=== PATIENT | male | born 1960 | race Caucasian/White ===

== ENCOUNTER 2020-06-01 08:02 | Outpatient (REF) | payer MEDICARE, MEDICAID, SELFPAY ==
[2020-06-01 11:26] LABS: MANUAL DIFF FLAG NO
[2020-06-01 11:48] LABS: Basophils Percent Auto 0.5 % (0-2); Eosinophils Absolute Auto 0.4 X10*3/uL (0.0-0.4); Eosinophils Percent Auto 5.1 % (0-4); Hematocrit 42.2 % (42-52); Hemoglobin 13.5 g/dl (14.0-18.0); Imm Gran Abs Auto 0.05 X10*3/uL (0.00-0.03); Imm Gran Pct Auto 0.6 % (0.0-0.4); Lymphocytes Absolute Auto 1.9 X10*3/uL (1.2-4.9); Lymphocytes Percent Auto 23.2 % (20-40); Mean Corpuscular Hemoglobin 28.2 pg (27.0-33.0); Mean Corpuscular Volume 88.3 fL (80-98); Mean Platelet Volume 10.1 fL (9.4-12.4); Monocytes Absolute Auto 0.7 X10*3/uL (0.1-1.2); Monocytes Percent Auto 8.5 % (2-11); Neutrophils Absolute Auto 5.1 X10*3/uL (2.0-8.3); Neutrophils Percent Auto 62.1 % (45-73); Platelet Count 245 X10*3/uL (160-400); Red Blood Count 4.78 X10*6/uL (4.60-5.80); Red Cell Distribution Width 13.4 % (11.0-16.0); White Blood Count 8.3 X10*3/uL (4.8-10.8)
[2020-06-01 11:51] LABS: Iron 69 mcg/dL (45-160); Percent Iron Saturation 20 % (15-50); Total Iron Binding Capacity 338 mcg/dL (228-428); Unsaturated Iron Binding 269 ug/dL
== END 2020-06-01 08:03 | disposition home or self-care (01) ==
LOC: HO.HMGCLDS 08:02
PROVIDERS: PCP Internal Medicine; Visit Provider Internal Medicine
DX: R53.83 Other fatigue (principal)
CPT/HCPCS: 36415; 83540; 85025

== ENCOUNTER 2020-07-31 07:04 | Outpatient (REF) | payer MEDICARE, MEDICAID, SELFPAY ==
[2020-07-31 14:08] LABS: Estimated Average Glucose 197 mg/dL; Hemoglobin A1c % 8.5 %
[2020-07-31 14:29] LABS: Glucose Fasting 138 mg/dL (60-99)
== END 2020-07-31 07:05 | disposition home or self-care (01) ==
LOC: HO.HMGCLDS 07:04
PROVIDERS: PCP Internal Medicine; Visit Provider Internal Medicine
DX: E11.40 Type 2 diabetes mellitus with diabetic neuropathy, unspecified (principal)
CPT/HCPCS: 82947; 83036

== ENCOUNTER 2020-11-01 10:34 | Outpatient (REF) | payer MEDICARE, MEDICAID, SELFPAY ==
[2020-11-01 11:32] LABS: Alanine Aminotransferase 25 U/L (0-40); Albumin Level 4.2 g/dL (3.5-5.0); Alkaline Phosphatase 63 U/L (39-117); Aspartate Amino Transferase 32 U/L (5-37); Bilirubin Direct 0.2 mg/dL (0.0-0.5); Bilirubin Total 0.3 mg/dL (0.0-1.0); Cholesterol 107 mg/dL; Glucose Fasting 148 mg/dL (60-99); HDL Cholesterol 35 mg/dL; LDL Cholesterol Calculated 44 mg/dl; Total Protein 6.4 g/dL (6.5-8.0); Triglycerides 142 mg/dL
[2020-11-01 11:36] LABS: Estimated Average Glucose 194 mg/dL; Hemoglobin A1c % 8.4 %
[2020-11-01 11:53] LABS: TSH reflex Free T4 1.33 uIU/mL (0.32-4.0)
[2020-11-01 12:35] LABS: Reflex LDLD? No
== END 2020-11-01 10:35 | disposition home or self-care (01) ==
LOC: HO.LNP 10:34
PROVIDERS: Visit Provider Internal Medicine
DX: E11.40 Type 2 diabetes mellitus with diabetic neuropathy, unspecified (principal); E03.9 Hypothyroidism, unspecified; E78.00 Pure hypercholesterolemia, unspecified
CPT/HCPCS: 80061; 80076; 82947; 83036; 84443

== ENCOUNTER 2021-03-12 10:47 | Outpatient (REF) | payer MEDICARE, MEDICAID, SELFPAY ==
[2021-03-12 10:52] LABS: MANUAL DIFF FLAG NO
[2021-03-12 11:12] LABS: Basophils Percent Auto 0.3 % (0-2); Eosinophils Absolute Auto 0.8 X10*3/uL (0.0-0.4); Eosinophils Percent Auto 9.5 % (0-4); Hematocrit 41.6 % (42-52); Hemoglobin 13.1 g/dl (14.0-18.0); Imm Gran Abs Auto 0.06 X10*3/uL (0.00-0.03); Imm Gran Pct Auto 0.7 % (0.0-0.4); Lymphocytes Absolute Auto 1.6 X10*3/uL (1.2-4.9); Lymphocytes Percent Auto 18.5 % (20-40); Mean Corpuscular HGB Conc 31.5 g/dl (31.0-36.0); Mean Corpuscular Hemoglobin 28.4 pg (27.0-33.0); Mean Corpuscular Volume 90.2 fL (80-98); Mean Platelet Volume 10.9 fL (9.4-12.4); Monocytes Absolute Auto 0.6 X10*3/uL (0.1-1.2); Monocytes Percent Auto 7.2 % (2-11); Neutrophils Absolute Auto 5.7 X10*3/uL (2.0-8.3); Neutrophils Percent Auto 63.8 % (45-73); Platelet Count 260 X10*3/uL (160-400); Red Blood Count 4.61 X10*6/uL (4.60-5.80); Red Cell Distribution Width 13.1 % (11.0-16.0); White Blood Count 8.9 X10*3/uL (4.8-10.8)
[2021-03-12 11:17] LABS: Estimated Average Glucose 235 mg/dL; Hemoglobin A1c % 9.8 %
[2021-03-12 11:23] LABS: Glucose Urine UA 100 MG/DL (NEG); Leukocyte Esterase Urine NEG (NEG); Nitrite Urine NEG (NEG); PH 6.5 (5.0-8.0); Urine Blood NEG (NEG); Urine Ketones NEG (NEG); Urine Protein 1+ MG/DL (NEG-TRACE)
[2021-03-12 11:26] LABS: Appearance Urine CLEAR; Color Urine YELLOW
[2021-03-12 11:33] LABS: Alanine Aminotransferase 36 U/L (0-40); Albumin Level 3.9 g/dL (3.5-5.0); Alkaline Phosphatase 68 U/L (39-117); Anion Gap 13 (12-20); Aspartate Amino Transferase 45 U/L (5-37); Bilirubin Total 0.5 mg/dL (0.0-1.0); Blood Urea Nitrogen 14 mg/dL (9-16); Carbon Dioxide 25 mmol/L (22-29); Chloride 104 mmol/L (96-108); Cholesterol 96 mg/dL; Estimated Glomerular Filt Rate > 60; Glucose Fasting 230 mg/dL (60-99); HDL Cholesterol 28 mg/dL; Iron 58 mcg/dL (45-160); LDL Cholesterol Calculated 38 mg/dl; Percent Iron Saturation 16 % (15-50); Potassium 4.6 mmol/L (3.3-5.1); Sodium 137 mmol/L (135-145); Total Iron Binding Capacity 366 mcg/dL (228-428); Total Protein 6.4 g/dL (6.5-8.0); Triglycerides 154 mg/dL; Unsaturated Iron Binding 308 ug/dL
[2021-03-12 11:42] LABS: PSA,Total (Free>4and<10) 0.21 ng/mL (0.00-4.00)
[2021-03-12 11:49] LABS: Creatinine Urine 210.06 mg/dL; Microalbum/Creatinine Ratio Ur 30.4 ug/mg cr
[2021-03-12 11:52] LABS: Mucus Urine TRACE /LPF; RBC Urine 0-2 /HPF (0); WBC Urine 0-2 /HPF (0-4)
[2021-03-12 11:56] LABS: Reflex LDLD? No
== END 2021-03-12 10:48 | disposition home or self-care (01) ==
LOC: HO.LNP 10:47
PROVIDERS: Visit Provider Internal Medicine
DX: E11.40 Type 2 diabetes mellitus with diabetic neuropathy, unspecified (principal); E03.9 Hypothyroidism, unspecified; E78.00 Pure hypercholesterolemia, unspecified; I10 Essential (primary) hypertension; D50.9 Iron deficiency anemia, unspecified; R79.9 Abnormal finding of blood chemistry, unspecified
CPT/HCPCS: 80053; 80061; 81001; 81003; 82043; 83036; 83540; 84153; 84443; 85025

== ENCOUNTER 2021-05-07 09:24 | Outpatient (REF) | payer MEDICARE, MEDICAID, SELFPAY ==
--- NOTE | ~2021-05-07 | XR_ITS ---
EXAMINATION: XR CHEST CLINICAL INFORMATION: Viral infection COMPARISON: Previous chest CT January 2007 TECHNIQUE: 2 views of the chest were obtained. FINDINGS: The cardiac and mediastinal contours are stable. The lungs are clear. There is no pleural effusion or pneumothorax. There are degenerative changes of the spine. 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 There are postsurgical changes to the lower cervical spine. XR/XR chest 2V IMPRESSION: No evidence for acute disease in the chest.
== END 2021-05-07 09:25 | disposition home or self-care (01) ==
LOC: HO.HMGCX 09:24
PROVIDERS: PCP Internal Medicine; Visit Provider Physician Assistant
DX: Z20.822 Contact with and (suspected) exposure to COVID-19 (principal); B34.9 Viral infection, unspecified
CPT/HCPCS: 71046; U0003; U0005

== ENCOUNTER 2021-05-28 09:22 | Outpatient (REF) | payer MEDICARE, MEDICAID, SELFPAY ==
[2021-05-28 09:48] LABS: MANUAL DIFF FLAG NO
[2021-05-28 10:28] LABS: Basophils Absolute Auto 0.1 X10*3/uL (0.0-0.2); Basophils Percent Auto 0.5 % (0-2); Eosinophils Absolute Auto 1.2 X10*3/uL (0.0-0.4); Eosinophils Percent Auto 11.6 % (0-4); Hematocrit 44.7 % (42-52); Hemoglobin 14.5 g/dl (14.0-18.0); Imm Gran Abs Auto 0.06 X10*3/uL (0.00-0.03); Imm Gran Pct Auto 0.6 % (0.0-0.4); Lymphocytes Percent Auto 19.5 % (20-40); Mean Corpuscular HGB Conc 32.4 g/dl (31.0-36.0); Mean Corpuscular Volume 89.4 fL (80-98); Mean Platelet Volume 9.9 fL (9.4-12.4); Monocytes Absolute Auto 0.7 X10*3/uL (0.1-1.2); Monocytes Percent Auto 6.2 % (2-11); Neutrophils Absolute Auto 6.4 X10*3/uL (2.0-8.3); Neutrophils Percent Auto 61.6 % (45-73); Platelet Count 270 X10*3/uL (160-400); Red Cell Distribution Width 13.2 % (11.0-16.0); White Blood Count 10.4 X10*3/uL (4.8-10.8)
[2021-05-28 11:27] LABS: Vitamin B12 220 pg/mL (200-900)
== END 2021-05-28 09:23 | disposition home or self-care (01) ==
LOC: HO.LAB 09:22
PROVIDERS: PCP Internal Medicine; Visit Provider Internal Medicine
DX: E53.8 Deficiency of other specified B group vitamins (principal)
CPT/HCPCS: 36415; 82607; 85025

== ENCOUNTER 2021-12-25 09:29 | Outpatient (REF) | payer MEDICARE, MEDICAID, SELFPAY ==
[2021-12-25 10:05] LABS: COVID-19 Test Negative (Negative)
== END 2021-12-25 09:30 | disposition home or self-care (01) ==
LOC: HO.LAB 09:29
PROVIDERS: Visit Provider Internal Medicine
DX: Z20.822 Contact with and (suspected) exposure to COVID-19 (principal)
CPT/HCPCS: 87635; C9803

== ENCOUNTER 2022-03-14 10:58 | Outpatient (REF) | payer MEDICARE, MEDICAID, SELFPAY ==
[2022-03-14 11:04] LABS: MANUAL DIFF FLAG NO
[2022-03-14 11:15] LABS: Basophils Percent Auto 0.4 % (0-2); Eosinophils Percent Auto 10.7 % (0-4); Hematocrit 41.5 % (42.0-52.0); Hemoglobin 12.9 g/dl (14.0-18.0); Imm Gran Abs Auto 0.05 X10*3/uL (0.00-0.03); Imm Gran Pct Auto 0.5 % (0.0-0.4); Lymphocytes Absolute Auto 1.8 X10*3/uL (1.2-4.9); Lymphocytes Percent Auto 19.8 % (20-40); Mean Corpuscular HGB Conc 31.1 g/dl (31.0-36.0); Mean Corpuscular Hemoglobin 28.4 pg (27.0-33.0); Mean Corpuscular Volume 91.2 fL (80.0-98.0); Monocytes Absolute Auto 0.7 X10*3/uL (0.1-1.2); Monocytes Percent Auto 7.8 % (2-11); Neutrophils Absolute Auto 5.5 x10*3/uL (2.0-8.3); Neutrophils Percent Auto 60.8 % (45-73); Platelet Count 273 X10*3/uL (160-400); Red Blood Count 4.55 X10*6/uL (4.60-5.80); Red Cell Distribution Width 14.3 % (11.0-16.0); White Blood Count 9.1 X10*3/uL (4.8-10.8)
[2022-03-14 11:24] LABS: Appearance Urine CLEAR; Color Urine YELLOW; Glucose Urine UA >=1000 MG/DL (NEG); Leukocyte Esterase Urine NEG (NEG); Nitrite Urine NEG (NEG); Specific Gravity - Urine 1.015 (1.005-1.025); Urine Blood NEG (NEG); Urine Ketones NEG (NEG); Urine Protein NEG (NEG-TRACE)
[2022-03-14 11:27] LABS: Estimated Average Glucose 266 mg/dL; Hemoglobin A1c % 10.9 %
[2022-03-14 11:48] LABS: Creatinine Urine 75.93 mg/dL; Microalbum/Creatinine Ratio Ur 30.2 ug/mg cr
[2022-03-14 12:01] LABS: Alanine Aminotransferase 39 U/L (0-40); Albumin Level 4.2 g/dL (3.5-5.0); Alkaline Phosphatase 72 U/L (39-117); Anion Gap 17 (12-20); Aspartate Amino Transferase 43 U/L (5-37); Bilirubin Total 0.3 mg/dL (0.0-1.0); Blood Urea Nitrogen 19 mg/dL (9-16); Calcium 9.6 mg/dL (8.4-10.2); Carbon Dioxide 23 mmol/L (22-29); Chloride 104 mmol/L (96-108); Cholesterol 145 mg/dL; Estimated Glomerular Filt Rate > 60; Glucose Fasting 188 mg/dL (60-99); HDL Cholesterol 39 mg/dL; Iron 55 mcg/dL (45-160); LDL Cholesterol Calculated 71 mg/dl; Percent Iron Saturation 15 % (15-50); Potassium 4.7 mmol/L (3.3-5.1); Sodium 139 mmol/L (135-145); Total Iron Binding Capacity 376 mcg/dL (228-428); Triglycerides 178 mg/dL; Unsaturated Iron Binding 321 ug/dL
[2022-03-14 12:16] LABS: PSA,Total (Free>4and<10) 0.24 ng/mL (0.00-4.00)
[2022-03-14 12:42] LABS: RBC Urine 0 /HPF (0)
[2022-03-21 12:27] LABS: Testosterone, Total 173 ng/dL (250-1100)
== END 2022-03-14 10:59 | disposition home or self-care (01) ==
LOC: HO.LNP 10:58
PROVIDERS: Visit Provider Internal Medicine
DX: Z12.5 Encounter for screening for malignant neoplasm of prostate (principal); D50.9 Iron deficiency anemia, unspecified; I10 Essential (primary) hypertension; E03.9 Hypothyroidism, unspecified; E11.40 Type 2 diabetes mellitus with diabetic neuropathy, unspecified; E29.1 Testicular hypofunction
CPT/HCPCS: 80053; 80061; 81001; 82043; 83036; 83540; 84153; 84403; 84443; 85025

== ENCOUNTER 2022-04-01 11:36 | Emergency (ER) | payer MEDICARE, MEDICAID, SELFPAY ==
--- NOTE | ~2022-04-01 | CT_ITS ---
EXAMINATION: CT ANGIOGRAM OF THE CHEST WITH AND WITHOUT CONTRAST (CT PULMONARY ANGIOGRAM FOR PE) CLINICAL INFORMATION: Reason for Exam + dimer COMPARISON: Chest CT 01/28/2007 TECHNIQUE: Prior to contrast administration, noncontrast localization images were obtained. Subsequently, multidetector volumetric imaging was performed from the thoracic inlet to below the diaphragms following the administration of 65 mL Omnipaque 350 intravenous contrast. No contrast reaction reported Sagittal, coronal, and MIP oblique sagittal reformatted images were obtained on the CT workstation, uploaded to PACS, and reviewed. This CT examination was performed using dose optimization techniques as appropriate, variously including the following: *Automated exposure control *Adjustment of mA and/or kV according to patient size (this includes techniques or standardized protocols for targeted exams where dose is matched to indication/reason for exam; i.e. extremities or head) *Use of iterative reconstruction technique Total exam dose-length product 466 mGy-cm FINDINGS: QUALITY OF STUDY/CONTRAST BOLUS: Satisfactory. PULMONARY ARTERIES: No central or segmental pulmonary emboli. THORACIC AORTA: No aneurysm or dissection. LUNG: Small 5.5 mm mean diameter ovoid shaped pulmonary nodule in the right upper lobe along the bronchovascular bundle on series 603 image 193. Finding was not appreciated on remote prior CT at 2006, not only 5 mm thick axial images are available for review limiting assessment of small nodules. Few tiny sub-4 mm pulmonary nodules in the upper lobes and small calcified granuloma along the right major fissure. No airspace consolidation. Mild mosaic attenuation bilaterally suggesting mild air trapping. Mild right apical centrilobular emphysema. Central airways are clear. No bronchiectasis. PLEURA: No pleural effusion or pneumothorax. MEDIASTINUM: No cardiomegaly or pericardial effusion. No mediastinal or hilar lymphadenopathy. No evidence of septal bowing or right heart strain. CHEST WALL/AXILLA: No axillary or internal mammary lymphadenopathy. Left thyroid lobe is absent or markedly atrophic. OSSEOUS STRUCTURES: No acute or suspicious osseous abnormality. Mild multilevel degenerative disc disease in the thoracic spine with bulky right-sided projecting endplate osteophytes. ACDF hardware in the lower cervical spine. UPPER ABDOMEN: Unremarkable. No reflux of contrast into the hepatic veins to suggest elevated right heart pressures. CT/CT angio chest PE protocol IMPRESSION: 1. No evidence of pulmonary embolus. 2. Mild mosaic attenuation scattered in the lungs suggesting mild air trapping. 3. 5.5 mm mean diameter right upper lobe pulmonary nodule. If the patient is low risk for primary pulmonary malignancy, no follow-up is required. If high risk, suggest optional chest CT follow-up in 12 months time for reassessment Fleischner Society guidelines 2017. VTE: negative
--- NOTE | ~2022-04-01 | XR_ITS ---
EXAMINATION: XR TIBIA AND FIBULA, LEFT CLINICAL INFORMATION: Left leg swelling. Suspected osteomyelitis. The COMPARISON: None TECHNIQUE: AP and lateral views of the left tibia and fibula were obtained. FINDINGS: Significant soft tissue swelling is present involving the left leg including the left ankle and the visualized part of the dorsum of the left foot. No definite underlying focal osseous abnormality identified. The articular margins, joint space appear unremarkable. Incidental note is made of a well-corticated bony protuberance at upper medial part of the left tibia likely represent chronic/congenital/old posttraumatic change. XR/XR tibia fibula LT 2V IMPRESSION: 1. Significant Soft Tissue Swelling Involving the left leg, ankle and visualized part of the left foot. 2. No underlying radiographic evidence of any osseous abnormality identified. 3. Focal well-corticated bony density seen at upper medial tibia likely represent congenital versus old posttraumatic change.
--- NOTE | ~2022-04-01 | US_ITS ---
EXAMINATION: US VENOUS ULTRASOUND WITH DOPPLER LOWER EXTREMITY, LEFT CLINICAL INFORMATION: Left lower extremity edema and swelling with question of DVT COMPARISON: None TECHNIQUE: Ultrasound of the deep veins is performed from the hip to the calf with compression sonography and color and pulse Doppler assessment. Spectral analysis with color-flow imaging is performed. FINDINGS: There is normal venous compression and respiratory variation and augmented flow. The visualized common femoral vein, superficial femoral vein, profunda femoral vein, popliteal vein, and the trifurcation region shows no evidence of deep venous thrombosis. There is no significant popliteal fossa cyst. If the patient's symptoms persist, followup ultrasound in 5 days 7 days might be of value to exclude proximal propagation from a non-visualized calf vein. US/US venous duplex LE LT IMPRESSION: No DVT demonstrated in the left lower extremity.
[2022-04-01 12:41] VITALS: BP 169/97; PULSE 109; RESP 19; TEMP 37.6; O2SAT 98; BMI 35.6
[2022-04-01 14:07] LABS: MANUAL DIFF FLAG NO
[2022-04-01 14:10] LABS: Basophils Absolute Auto 0.1 X10*3/uL (0.0-0.2); Basophils Percent Auto 0.6 % (0-2); Eosinophils Absolute Auto 1.2 X10*3/uL (0.0-0.4); Hematocrit 41.5 % (42.0-52.0); Hemoglobin 13.3 g/dl (14.0-18.0); Imm Gran Abs Auto 0.03 X10*3/uL (0.00-0.03); Imm Gran Pct Auto 0.3 % (0.0-0.4); Lymphocytes Absolute Auto 1.9 X10*3/uL (1.2-4.9); Lymphocytes Percent Auto 21.5 % (20-40); Mean Corpuscular Hemoglobin 28.6 pg (27.0-33.0); Mean Corpuscular Volume 89.2 fL (80.0-98.0); Mean Platelet Volume 9.5 fL (9.4-12.4); Monocytes Absolute Auto 0.7 X10*3/uL (0.1-1.2); Neutrophils Percent Auto 56.6 % (45-73); Platelet Count 262 X10*3/uL (160-400); Red Blood Count 4.65 X10*6/uL (4.60-5.80); Red Cell Distribution Width 14.4 % (11.0-16.0); White Blood Count 8.8 X10*3/uL (4.8-10.8)
[2022-04-01 14:25] LABS: Anion Gap 18 (12-20); Blood Urea Nitrogen 12 mg/dL (9-16); C Reactive Protein 0.81 mg/dL (< or = 0.50); Calcium 9.7 mg/dL (8.4-10.2); Carbon Dioxide 23 mmol/L (22-29); Chloride 104 mmol/L (96-108); Creatinine Clr Calc Pharmacy 96.4; Estimated Glomerular Filt Rate > 60; Glucose Random 210 mg/dL (60-115); Potassium 4.9 mmol/L (3.3-5.1); Sodium 140 mmol/L (135-145)
[2022-04-01 14:33] LABS: B Type Natriuretic Peptide < 10 pg/mL (<100)
[2022-04-01 15:05] LABS: Erythrocyte Sedimentation Rate 21 MM/HR (0-15)
--- NOTE | 2022-04-01 16:06 | ED.GENADULT ---
HPI - General Adult General Chief complaint: Extremity Injury, Lower Stated complaint: Swollen L leg Time Seen by Provider: 04/01/22 12:48 Source: patient Mode of arrival: ambulatory Limitations: no limitations History of Present Illness HPI narrative: 61-year-old male presenting to the emergency department with a painful left lower extremity times times month worsening over the past week. Patient tells me that he has noted that his left lower extremity is progressively getting worse in terms of swelling, pain and redness. Patient tells me that this is never happened to him before. He has not been evaluated by his PCP for this. He denies any injuries to the left lower extremity. Denies numbness, tingling, fevers, chills, chest pain, shortness of breath, nausea, vomiting, headache and dizziness. He has no history of DVT or PE, patient is not anticoagulated. Related Data Home Medications Medication Instructions Recorded Confirmed celecoxib 200 mg capsule 200 mg PO DAILY 02/11/22 cromolyn 4 % eye drops 1 drp ophthalmic (eye) QID 02/11/22 dapagliflozin 10 mg tablet 10 mg PO DAILY 02/11/22 (Farxiga) gabapentin 600 mg tablet mg PO 02/11/22 latanoprost 0.005 % eye drops 1 drp ophthalmic-Right BEDTIME 02/11/22 levothyroxine 100 mcg tablet 100 mcg PO DAILY 02/11/22 lisinopril 40 mg tablet 40 mg PO DAILY 02/11/22 metformin 1,000 mg tablet 1,000 mg PO BID 02/11/22 rosuvastatin 20 mg tablet 20 mg PO BEDTIME 02/11/22 tramadol 50 mg tablet 50 mg PO TID PRN 02/11/22 Previous Rx's Medication Instructions Recorded hydrocortisone 2.5 % topical cream 1 appl topical BID PRN skin 02/11/22 irritation #30 grams prednisone 20 mg tablet 60 mg PO DAILY #9 tabs 02/11/22 cephalexin 500 mg tablet 500 mg PO Q6H 10 days #40 tabs 04/01/22 doxycycline hyclate 100 mg capsule 100 mg PO BID 10 days #20 caps 04/01/22 Allergies Allergy/AdvReac Type Severity Reaction Status Date / Time No Known Allergies Allergy Unverified 02/11/22 10:44 [No Known Allergies*] hay fever Allergy Unknown sneezing Uncoded 02/11/22 10:44 watery eyes Review of Systems Review of Systems: Constitutional : No Weight loss, No Fever, No Chills, No Fatigue, No Malaise ENT/Mouth : No sore throat, No Rhinorrhea Eyes: No Eye Pain, No Swelling, No Redness Cardiovascular : No Chest Pain, No SOB, No Dyspnea on Exertion, No Orthopnea, No Edema, No Palpitations Respiratory : No Cough, No Sputum, No Wheezing Gastrointestinal : No Nausea, No Vomiting, No Diarrhea, No Constipation, No abdominal Pain, No Hematochezia, No Melena Genitourinary : No Dysuria, No Urinary Frequency, No Hematuria, Musculoskeletal : + joint pain, No Myalgias, + Joint Swelling Skin : No Skin Lesions, No rash Neuro : No Weakness, No Numbness, No Dizziness, No Headache Psych : No Anxiety/Panic, No Depression All other systems reviewed and are negative Yes all other systems are reviewed and are negative [facility] Past Medical History Attestation statement: The following information was validated with the patient. Source: old records reviewed and nursing notes reviewed Social History Social History Advance Directives: No Advance Directives Information Provided: Yes Physical Exam ED Vital Signs: Vital Signs - 24 hr 04/01/22 12:41 04/01/22 18:54 Temperature 99.6 F 98.1 F Pulse Rate 109 H 94 Respiratory Rate 19 20 Blood Pressure 169/97 H 136/88 Pulse Oximetry 98 96 Oxygen Delivery Method Room Air Room Air BMI result Body Mass Index 35.6 VSS Appearance: Alert.? Oriented X3.? No acute distress.? Head: Normocephalic, atraumatic, no step-offs or deformities Eyes: Pupils equal, round and reactive to light.? ENT: Pharynx normal.? Neck: Normal inspection.? Neck supple.? CVS: Normal heart rate and rhythm.? Pulses normal.? Respiratory: No respiratory distress.? Breath sounds normal.? Abdomen: Soft and nontender.? Skin: Skin warm and dry.? Normal skin color.? Normal skin turgor.?+ eczema throughout body Extremities: 3+ pitting edema from knee down on left side. No edema on the right. No calf ttp b/l. 4/5 strength to bilateral upper and lower extremities. + erythema and calor to L. ankle area with pain to palpation. Back: No midline tenderness, no C-spine tenderness, full range of motion, no CVA tenderness bilaterally Neuro: Oriented X 3.? No motor deficit.? No sensory deficit. CN 2-12 intact Course Reevaluation(s) Reevaluation #1: Patient's CBC within normal limits. Chemistry with no acute electrolyte abnormalities requiring intervention. D-dimer was elevated, CTA was ordered which did not show PE. Other incidental findings noted, educated patient 90s and attach them on his discharge. Lower extremity venous duplex negative no signs of DVT in the left lower extremity, advised patient to follow-up with an additional ultrasound in 5-7 days if symptoms do not resolve. Will treat patient for cellulitis with Keflex and doxycycline. Advised him to return with new or worsening symptoms and to follow-up with his PCP. Time: 21:36 Medical Decision Making [facility] Narrative Medical decision making narrative: 1606 61 year old male presents with lle pain and swelling, particularly around the ankle X1 month worsening over the past week. Denies numbness, tingling, fevers, chills, chest pain, shortnes of breath. Physical exam significant for 3+ pitting edema from knee down on left side. No edema on the right. No calf ttp b/l. 4/5 strength to bilateral upper and lower extremities. + erythema and calor to L. ankle area with pain to palpation. Eczema throughout body. Immediately upon evaluation of patient a bedside Doppler with auscultation was done, which shows 2+ dorsalis pedis, 2+ posterior tibialis and 2+ anterior tibialis pulses equal bilateral. History and physical examination concerning for left lower extremity cellulitis, will also rule out musculoskeletal etiology such as fractures or dislocations with overlying edema/swelling. Unlikely that this is a DVT or arterial occlusion. No signs of threatened limb. Plan at this time is to obtain basic labs, x-ray, ultrasound of the left lower extremity. Patient is tachycardic will obtain dimer to rule out PE although patient not complaining of chest pain or shortness of breath. Medical Records Medical records reviewed: Yes I reviewed the patient's medical records. Lab Data Lab results reviewed: Yes I reviewed the patient's lab results. Result diagrams: 04/01/22 14:02 04/01/22 14:02 Labs: Lab Results 04/01/22 04/01/22 04/01/22 Range/Units 14:02 14:02 14:02 WBC 8.8 (4.8-10.8) X10*3/uL RBC 4.65 (4.60-5.80) X10*6/uL Hgb 13.3 L (14.0-18.0) g/dl Hct 41.5 L (42.0-52.0) % MCV 89.2 (80.0-98.0) fL MCH 28.6 (27.0-33.0) pg MCHC 32.0 (31.0-36.0) g/dl RDW 14.4 (11.0-16.0) % Plt Count 262 (160-400) X10*3/uL MPV 9.5 (9.4-12.4) fL Immature Gran % (Auto) 0.3 (0.0-0.4) % Neut % (Auto) 56.6 (45-73) % Lymph % (Auto) 21.5 (20-40) % [place] % (Auto) 8.0 (2-11) % Eos % (Auto) 13.0 H (0-4) % Baso % (Auto) 0.6 (0-2) % Lymph # (Auto) 1.9 (1.2-4.9) X10*3/uL [place] # (Auto) 0.7 (0.1-1.2) X10*3/uL Eos # (Auto) 1.2 H (0.0-0.4) X10*3/uL Baso # (Auto) 0.1 (0.0-0.2) X10*3/uL Abs Immat Gran (auto) 0.03 (0.00-0.03) X10*3/uL Absolute Neuts (auto) 5.0 (2.0-8.3) x10*3/uL Absolute Nucleated RBC 0.000 (0.0-0.012) X10*3/uL Nucleated RBC % (auto) 0.0 (0.0-0.2) /100WBC ESR (0-15) MM/HR D-Dimer High Sensitivty NG/ML Sodium 140 (135-145) mmol/L Potassium 4.9 (3.3-5.1) mmol/L Chloride 104 (96-108) mmol/L Carbon Dioxide 23 (22-29) mmol/L Anion Gap 18 (12-20) BUN 12 (9-16) mg/dL Creatinine 1.01 (0.5-1.4) mg/dL Estim Creat Clear Calc 96.4 Estimated GFR > 60 Random Glucose 210 H (60-115) mg/dL Calcium 9.7 (8.4-10.2) mg/dL C-Reactive Protein 0.81 H (< or = 0.50) mg/dL B-Natriuretic Peptide < 10 (<100) pg/mL 04/01/22 04/01/22 Range/Units 14:02 17:44 WBC (4.8-10.8) X10*3/uL RBC (4.60-5.80) X10*6/uL Hgb (14.0-18.0) g/dl Hct (42.0-52.0) % MCV (80.0-98.0) fL MCH (27.0-33.0) pg MCHC (31.0-36.0) g/dl RDW (11.0-16.0) % Plt Count (160-400) X10*3/uL MPV (9.4-12.4) fL Immature Gran % (Auto) (0.0-0.4) % Neut % (Auto) (45-73) % Lymph % (Auto) (20-40) % [place] % (Auto) (2-11) % Eos % (Auto) (0-4) % Baso % (Auto) (0-2) % Lymph # (Auto) (1.2-4.9) X10*3/uL [place] # (Auto) (0.1-1.2) X10*3/uL Eos # (Auto) (0.0-0.4) X10*3/uL Baso # (Auto) (0.0-0.2) X10*3/uL Abs Immat Gran (auto) (0.00-0.03) X10*3/uL Absolute Neuts (auto) (2.0-8.3) x10*3/uL Absolute Nucleated RBC (0.0-0.012) X10*3/uL Nucleated RBC % (auto) (0.0-0.2) /100WBC ESR 21 H (0-15) MM/HR D-Dimer High Sensitivty 525 NG/ML Sodium (135-145) mmol/L Potassium (3.3-5.1) mmol/L Chloride (96-108) mmol/L Carbon Dioxide (22-29) mmol/L Anion Gap (12-20) BUN (9-16) mg/dL Creatinine (0.5-1.4) mg/dL Estim Creat Clear Calc Estimated GFR Random Glucose (60-115) mg/dL Calcium (8.4-10.2) mg/dL C-Reactive Protein (< or = 0.50) mg/dL B-Natriuretic Peptide (<100) pg/mL Critical Care Time Critical Care Time Critical Care Time: No Discharge Plan Discharge Clinical Impression: Soft tissue swelling, Cellulitis, Pulmonary nodule Patient Disposition: Home, Self-Care Instructions: Cellulitis (ED), Swollen Joint (ED) Additional Instructions: Take your medications as prescribed. If you were prescribed antibiotics today, it is important that you take your medication to their entirety, do not skip any doses, do not finish them early. Follow-up with your primary care provider this week. Return to the emergency department with new or worsening symptoms. Such as fevers, chills, chest pain, shortness of breath, nausea, vomiting, dizziness, headache, vision changes, lethargy In case of emergency call 911 ?XR/XR tibia fibula LT 2V IMPRESSION: ? 1. Significant Soft Tissue Swelling Involving the left leg, ankle and visualized part of the left foot. 2. No underlying radiographic evidence of any osseous abnormality identified. 3. Focal well-corticated bony density seen at upper medial tibia likely represent congenital versus old posttraumatic change. US/US venous duplex LE LT IMPRESSION: No DVT demonstrated in the left lower extremity. If the patient's symptoms persist, followup ultrasound in 5 days 7 days might be of value to exclude proximal propagation from a non-visualized calf vein. CT/CT angio chest PE protocol IMPRESSION: ? 1. No evidence of pulmonary embolus. 2. Mild mosaic attenuation scattered in the lungs suggesting mild air trapping. 3. 5.5 mm mean diameter right upper lobe pulmonary nodule. If the patient is low risk for primary pulmonary malignancy, no follow-up is required. If high risk, suggest optional chest CT follow-up in 12 months time for reassessment Fleischner Society guidelines 2017. ? ? VTE: negative Prescriptions: New cephalexin 500 mg tablet 500 mg PO Q6H 10 Days Qty: 40 0RF doxycycline hyclate 100 mg capsule 100 mg PO BID 10 Days Qty: 20 0RF No Action levothyroxine 100 mcg tablet 100 mcg PO DAILY metformin 1,000 mg tablet 1,000 mg PO BID gabapentin 600 mg tablet PO tramadol 50 mg tablet 50 mg PO TID PRN cromolyn 4 % drops 1 drp ophthalmic (eye) QID celecoxib 200 mg capsule 200 mg PO DAILY latanoprost 0.005 % drops 1 drp ophthalmic-Right BEDTIME rosuvastatin 20 mg tablet 20 mg PO BEDTIME lisinopril 40 mg tablet 40 mg PO DAILY Farxiga 10 mg tablet 10 mg PO DAILY prednisone 20 mg tablet 60 mg PO DAILY Qty: 9 0RF hydrocortisone 2.5 % cream 1 appl topical BID PRN (Reason: skin irritation) Qty: 30 1RF Referrals: Abundio Lizarraga MD [Primary Care Provider] - 2 days Stand Alone Forms: Work/School Release
[2022-04-01 18:00] LABS: D Dimer High Sensitivity 525 NG/ML
[2022-04-01 18:54] VITALS: BP 136/88; PULSE 94; RESP 20; TEMP 36.7; O2SAT 96
--- NOTE | 2022-04-01 20:09 | PC.NURSE ---
IV inserted in left AC. Pt is ready for CTA.
[2022-04-01] MEDS: iohexoL 350 MG/ML 100 ML INFUS..BTL IV (20:37)
== END 2022-04-01 21:55 | disposition home or self-care (01) ==
PROVIDERS: Physician Assistant; Emergency Provider Emergency Medicine; PCP Internal Medicine
DX: L03.116 Cellulitis of left lower limb (principal); M79.662 Pain in left lower leg; R60.0 Localized edema; R91.1 Solitary pulmonary nodule; Z79.899 Other long term (current) drug therapy
CPT/HCPCS: 36415; 71275; 73590; 80048; 83880; 85025; 85379; 85652; 86140; 93971; 99283; 99284; Q9967

== ENCOUNTER 2022-05-01 09:28 | Outpatient (REF) | payer MEDICARE, MEDICAID, SELFPAY ==
[2022-05-01 10:27] LABS: Basophils Absolute Auto 0.1 X10*3/uL (0.0-0.2); Basophils Percent Auto 0.4 % (0-2); Eosinophils Absolute Auto 2.2 X10*3/uL (0.0-0.4); Eosinophils Percent Auto 19.6 % (0-4); Hematocrit 40.8 % (42.0-52.0); Hemoglobin 13.3 g/dl (14.0-18.0); Imm Gran Abs Auto 0.07 X10*3/uL (0.00-0.03); Imm Gran Pct Auto 0.6 % (0.0-0.4); Lymphocytes Absolute Auto 1.7 X10*3/uL (1.2-4.9); Lymphocytes Percent Auto 14.8 % (20-40); MANUAL DIFF FLAG SCAN; Mean Corpuscular HGB Conc 32.6 g/dl (31.0-36.0); Mean Corpuscular Hemoglobin 28.9 pg (27.0-33.0); Mean Corpuscular Volume 88.5 fL (80.0-98.0); Mean Platelet Volume 9.8 fL (9.4-12.4); Monocytes Absolute Auto 0.7 X10*3/uL (0.1-1.2); Monocytes Percent Auto 6.2 % (2-11); Neutrophils Absolute Auto 6.7 x10*3/uL (2.0-8.3); Neutrophils Percent Auto 58.4 % (45-73); Platelet Count 295 X10*3/uL (160-400); Red Blood Count 4.61 X10*6/uL (4.60-5.80); Red Cell Distribution Width 13.7 % (11.0-16.0); SCAN SMEAR FLAG 1; White Blood Count 11.4 X10*3/uL (4.8-10.8)
[2022-05-01 10:53] LABS: SLIDE REVIEW VERIFIED
== END 2022-05-01 09:29 | disposition home or self-care (01) ==
LOC: HO.LAB 09:28
PROVIDERS: PCP Internal Medicine; Visit Provider Physician Assistant
DX: L20.84 Intrinsic (allergic) eczema (principal)
CPT/HCPCS: 36415; 85025

== ENCOUNTER 2022-06-07 06:59 | Inpatient (IN) | payer MEDICARE, MEDICAID, SELFPAY ==
--- NOTE | ~2022-06-07 | XR_ITS ---
EXAMINATION: XR CHEST CLINICAL INFORMATION: Lower extremity edema COMPARISON: Prior chest x-ray April 2021 CTA chest March 2022 TECHNIQUE: Frontal view of the chest was obtained. FINDINGS: No acute significant abnormality is noted involving the heart, lungs, mediastinum, bony thorax or soft tissues. Stable postoperative changes in the right shoulder in the partially visualized cervical spine XR/XR chest 1V IMPRESSION: Unremarkable examination.
--- NOTE | ~2022-06-07 | US_ITS ---
EXAMINATION: BILATERAL LOWER EXTREMITY VENOUS ULTRASOUND CLINICAL INFORMATION: Lower extremity pain and swelling, greater in the left lower extremity than the right. COMPARISON: Left lower extremity venous Doppler ultrasound dated 04/01/2022. TECHNIQUE: Doppler spectral analysis and color flow Doppler imaging was performed of the lower extremities. Compression and augmentation maneuvers were performed. FINDINGS: The right and left common femoral vein, greater saphenous vein takeoff, femoral vein, and popliteal vein are normally compressible with normal augmentation responses and phasic changes seen with Doppler imaging. The [place]calf peroneal and posterior tibial veins are patent as well. No popliteal cyst is seen. A prominent left inguinal lymph node is seen, measuring up to 4 cm in transverse diameter. However, this lymph node shows a normal cortical thickness and normal echogenic fatty vascular hilum with no suspicious features seen and is consistent with a benign finding, which warrants no additional imaging follow-up. US/US venous duplex LE BI IMPRESSION: No evidence of deep venous thrombosis in the right or left lower extremity.
[2022-06-07 07:18] VITALS: BP 89/55; PULSE 123; RESP 17; TEMP 35.8; O2SAT 95; BMI 35.2
[2022-06-07 08:03] VITALS: BP 93/64; PULSE 102; RESP 20; TEMP 36.9; O2SAT 99
--- NOTE | 2022-06-07 08:17 | ED.EXTPRO ---
HPI - Extremity Problem General Chief complaint: Extremity Problem Stated complaint: l leg pain Time Seen by Provider: 06/07/22 08:02 Source: patient Mode of arrival: ambulatory History of Present Illness HPI Narrative: 62-year-old male with a past medical history of eczema, presenting to the ED complaining of left lower extremity pain and swelling x1 week. Admits to similar in the past, was treated in our ED on 04/01/2022 cellulitis. Reports chronic eczema diffusely over body, unchanged. Denies fever, chills, drainage from area, SOB, CP, recent travel, history of DVT, quit cigarette smoking over 20 years ago. Denies being on anticoagulation MD Complaint: extremity pain and extremity swelling Onset (ago): week(s) Pain Consistency: constant Related Data Home Medications Medication Instructions Recorded Confirmed celecoxib 200 mg capsule 200 mg PO DAILY 02/11/22 cromolyn 4 % eye drops 1 drp ophthalmic (eye) QID 02/11/22 dapagliflozin 10 mg tablet 10 mg PO DAILY 02/11/22 (Farxiga) gabapentin 600 mg tablet mg PO 02/11/22 latanoprost 0.005 % eye drops 1 drp ophthalmic-Right BEDTIME 02/11/22 levothyroxine 100 mcg tablet 100 mcg PO DAILY 02/11/22 lisinopril 40 mg tablet 40 mg PO DAILY 02/11/22 metformin 1,000 mg tablet 1,000 mg PO BID 02/11/22 rosuvastatin 20 mg tablet 20 mg PO BEDTIME 02/11/22 tramadol 50 mg tablet 50 mg PO TID PRN 02/11/22 Previous Rx's Medication Instructions Recorded hydrocortisone 2.5 % topical cream 1 appl topical BID PRN skin 02/11/22 irritation #30 grams prednisone 20 mg tablet 60 mg PO DAILY #9 tabs 02/11/22 cephalexin 500 mg tablet 500 mg PO Q6H 10 days #40 tabs 04/01/22 doxycycline hyclate 100 mg capsule 100 mg PO BID 10 days #20 caps 04/01/22 Allergies Allergy/AdvReac Type Severity Reaction Status Date / Time No Known Allergies Allergy Unverified 02/11/22 10:44 [No Known Allergies*] hay fever Allergy Unknown sneezing Uncoded 02/11/22 10:44 watery eyes Review of Systems Review of Systems: Constitutional: No Fever, No Chills, No Fatigue, No Malaise ENT/Mouth: No Ear Pain, No Nasal Congestion, No Sinus Pain, No sore throat, No Rhinorrhea, No Swallowing Difficulty Eyes: No Eye Pain, No Swelling, No Redness Cardiovascular: No Chest Pain, No SOB, No Dyspnea on Exertion, No Orthopnea, + Edema, No Palpitations Respiratory: No Cough, No Sputum, No Smoke Exposure, No Dyspnea Gastrointestinal: No Nausea, No Vomiting, No Diarrhea, No Constipation, No Abdominal pain Genitourinary: No Dysuria, No Urinary Frequency, No Hematuria, No Urinary Incontinence/retention, No Urgency, No Flank Pain Musculoskeletal: + joint pain, No Myalgias, + Joint Swelling Skin: No Skin Lesions, + rash Neuro: No Weakness, No Numbness, No Paresthesias, No Headache Yes all other systems are reviewed and are negative Constitutional: Constitutional: Reports as per [facility] Past Medical History Attestation statement: The following information was validated with the patient. Social History Social History Patient Tobacco Use Status: Former Tobacco user Smoked in Last 30 Days: No Use of substances other than those prescribed or required for medical reasons: No Advance Directives: No Advance Directives Information Provided: Yes Physical Exam Vital Signs: Vital Signs: Last Vital Signs Temp 98.6 F 06/07/22 11:05 Pulse 103 H 06/07/22 11:05 Resp 18 06/07/22 11:05 BP 106/62 06/07/22 11:05 Pulse Ox 98 06/07/22 11:05 O2 Del Method 06/07/22 11:05 BMI result Body Mass Index 35.2 Const: General: cooperative, healthy appearing, no acute distress, alert and awake Orientation/consciousness: patient oriented x3 Limitations: no limitations HEENT: Head: Yes normal to inspection and Yes atraumatic Ears: hearing grossly normal bilaterally General nose exam: Normal external nose present Face and sinus: Yes normal facial exam Eyes: General: appearance normal, both eyes and all related structures EOM: EOMs intact bilaterally Neck: Neck: Yes normal visual inspection and Yes no meningeal signs Resp: Effort & Inspection: normal respiratory effort and no respiratory distress Auscultation: clear to auscultation bilaterally, no crackles, no rales, no rhonchi and no wheezes Cardio: Rate: regular rate and tachycardic Heart sounds: S1 normal heart sound present and S2 normal heart sound present Peripheral pulses: Peripheral pulses 2+ throughout GI: Inspection: Yes normal to inspection Palpation (GI): Soft to palpation, nontender, no guarding and not rigid Skin: Wounds: no wounds Neuro: General: patient oriented x3, tone normal and no meningeal signs Gait exam (Neuro): Normal gait present Extrem: Other: Please to images above. 2+ RLE pitting edema and 4+ LLE pitting edema (>ankle). No calf tenderness. Distal pulses intact. Diffuse erythematous dry eczema noted as pictured. No palm/sole involvement Course Course Course Narrative: -902--lactic acid elevated to 3.3 > likely from metformin use. Still low suspicion for severe sepsis -917--no leukocytosis. H&H slightly lower than patient's baseline. + DOUGIE with a creatinine of 1.96 and a BUN of 28 > likely from fluid overload > patient received 100 cc of IVF prior to it being stopped & changed to maintenance fluids at 75 mL an hour -CRP elevated to 7.4. ESR elevated to 53. Low suspicion for septic joint/arthritis XR chest 1V IMPRESSION: Unremarkable examination. ? US venous duplex LE BI IMPRESSION: No evidence of deep venous thrombosis in the right or left lower extremity. > plan to admit for further management MDM - Extremity (Nontraumatic) MDM Narrative Medical decision making narrative: 62-year-old male with a past medical history of eczema, presenting to the ED complaining of left lower extremity pain and swelling x1 week. On exam hypotensive tachycardic NAD, nontoxic appearing. Tachycardia likely from pain. Low suspicion for severe sepsis. Low suspicion for fracture without known trauma/injury. No evidence of ischemic limb. Please refer to images above, concern eczema with superimposed cellulitis vs DVT vs CHF. Low suspicion for pneumonia, PE, ACS. Plan: Labs, lactic/blood cultures, IVF, venous duplex ultrasound. In. IV Rocephin. Differential Diagnosis Differential diagnosis: Likely cellulitis, lower extremity edema and deep vein thrombosis of lower extremity Medical Records Attestation: I reviewed the patient's medical records. Lab Data Attestation: I reviewed the patient's lab results. Result diagrams: 06/07/22 08:43 06/07/22 08:43 Labs: Lab Results 06/07/22 06/07/22 06/07/22 Range/Units 08:42 08:43 08:43 WBC 8.3 (4.8-10.8) X10*3/uL RBC 4.04 L (4.60-5.80) X10*6/uL Hgb 11.4 L (14.0-18.0) g/dl Hct 36.0 L (42.0-52.0) % MCV 89.1 (80.0-98.0) fL MCH 28.2 (27.0-33.0) pg MCHC 31.7 (31.0-36.0) g/dl RDW 14.1 (11.0-16.0) % Plt Count 221 D (160-400) X10*3/uL MPV 9.1 L (9.4-12.4) fL Immature Gran % (Auto) 0.5 H (0.0-0.4) % Neut % (Auto) 59.0 (45-73) % Lymph % (Auto) 16.9 L (20-40) % [place] % (Auto) 7.4 (2-11) % Eos % (Auto) 15.8 H (0-4) % Baso % (Auto) 0.4 (0-2) % Lymph # (Auto) 1.4 (1.2-4.9) X10*3/uL [place] # (Auto) 0.6 (0.1-1.2) X10*3/uL Eos # (Auto) 1.3 H (0.0-0.4) X10*3/uL Baso # (Auto) 0.0 (0.0-0.2) X10*3/uL Abs Immat Gran (auto) 0.04 H (0.00-0.03) X10*3/uL Absolute Neuts (auto) 4.9 (2.0-8.3) x10*3/uL Absolute Nucleated RBC 0.000 (0.0-0.012) X10*3/uL Nucleated RBC % (auto) 0.0 (0.0-0.2) /100WBC ESR (0-15) MM/HR PT (10.0-13.1) SEC INR (0.9-1.1) Sodium 142 (135-145) mmol/L Potassium 5.0 (3.3-5.1) mmol/L Chloride 105 (96-108) mmol/L Carbon Dioxide 22 (22-29) mmol/L Anion Gap 20 (12-20) BUN 28 H D (9-16) mg/dL Creatinine 1.96 H (0.5-1.4) mg/dL Estim Creat Clear Calc 48.7 Estimated GFR 35 Random Glucose 295 H D (60-115) mg/dL Lactic Acid (0.5-2.0) mmol/L Calcium 8.8 D (8.4-10.2) mg/dL Total Bilirubin 0.4 (0.0-1.0) mg/dL Direct Bilirubin 0.2 (0.0-0.5) mg/dL AST 17 D (5-37) U/L ALT 17 (0-40) U/L Alkaline Phosphatase 63 (39-117) U/L C-Reactive Protein 7.42 H (< or = 0.50) mg/dL B-Natriuretic Peptide (<100) pg/mL Total Protein 6.1 L (6.5-8.0) g/dL Albumin 3.5 (3.5-5.0) g/dL COVID-19 (DARIUS) Negative (Negative) COVID-19 Clin Com See Note 06/07/22 06/07/22 06/07/22 Range/Units 08:43 08:43 08:43 WBC (4.8-10.8) X10*3/uL RBC (4.60-5.80) X10*6/uL Hgb (14.0-18.0) g/dl Hct (42.0-52.0) % MCV (80.0-98.0) fL MCH (27.0-33.0) pg MCHC (31.0-36.0) g/dl RDW (11.0-16.0) % Plt Count (160-400) X10*3/uL MPV (9.4-12.4) fL Immature Gran % (Auto) (0.0-0.4) % Neut % (Auto) (45-73) % Lymph % (Auto) (20-40) % [place] % (Auto) (2-11) % Eos % (Auto) (0-4) % Baso % (Auto) (0-2) % Lymph # (Auto) (1.2-4.9) X10*3/uL [place] # (Auto) (0.1-1.2) X10*3/uL Eos # (Auto) (0.0-0.4) X10*3/uL Baso # (Auto) (0.0-0.2) X10*3/uL Abs Immat Gran (auto) (0.00-0.03) X10*3/uL Absolute Neuts (auto) (2.0-8.3) x10*3/uL Absolute Nucleated RBC (0.0-0.012) X10*3/uL Nucleated RBC % (auto) (0.0-0.2) /100WBC ESR (0-15) MM/HR PT 11.9 (10.0-13.1) SEC INR 1.0 (0.9-1.1) Sodium (135-145) mmol/L Potassium (3.3-5.1) mmol/L Chloride (96-108) mmol/L Carbon Dioxide (22-29) mmol/L Anion Gap (12-20) BUN (9-16) mg/dL Creatinine (0.5-1.4) mg/dL Estim Creat Clear Calc Estimated GFR Random Glucose (60-115) mg/dL Lactic Acid 3.3 H* (0.5-2.0) mmol/L Calcium (8.4-10.2) mg/dL Total Bilirubin (0.0-1.0) mg/dL Direct Bilirubin (0.0-0.5) mg/dL AST (5-37) U/L ALT (0-40) U/L Alkaline Phosphatase (39-117) U/L C-Reactive Protein (< or = 0.50) mg/dL B-Natriuretic Peptide < 10 (<100) pg/mL Total Protein (6.5-8.0) g/dL Albumin (3.5-5.0) g/dL COVID-19 (DARIUS) (Negative) COVID-19 Clin Com 06/07/22 Range/Units 08:54 WBC (4.8-10.8) X10*3/uL RBC (4.60-5.80) X10*6/uL Hgb (14.0-18.0) g/dl Hct (42.0-52.0) % MCV (80.0-98.0) fL MCH (27.0-33.0) pg MCHC (31.0-36.0) g/dl RDW (11.0-16.0) % Plt Count (160-400) X10*3/uL MPV (9.4-12.4) fL Immature Gran % (Auto) (0.0-0.4) % Neut % (Auto) (45-73) % Lymph % (Auto) (20-40) % [place] % (Auto) (2-11) % Eos % (Auto) (0-4) % Baso % (Auto) (0-2) % Lymph # (Auto) (1.2-4.9) X10*3/uL [place] # (Auto) (0.1-1.2) X10*3/uL Eos # (Auto) (0.0-0.4) X10*3/uL Baso # (Auto) (0.0-0.2) X10*3/uL Abs Immat Gran (auto) (0.00-0.03) X10*3/uL Absolute Neuts (auto) (2.0-8.3) x10*3/uL Absolute Nucleated RBC (0.0-0.012) X10*3/uL Nucleated RBC % (auto) (0.0-0.2) /100WBC ESR 53 H (0-15) MM/HR PT (10.0-13.1) SEC INR (0.9-1.1) Sodium (135-145) mmol/L Potassium (3.3-5.1) mmol/L Chloride (96-108) mmol/L Carbon Dioxide (22-29) mmol/L Anion Gap (12-20) BUN (9-16) mg/dL Creatinine (0.5-1.4) mg/dL Estim Creat Clear Calc Estimated GFR Random Glucose (60-115) mg/dL Lactic Acid (0.5-2.0) mmol/L Calcium (8.4-10.2) mg/dL Total Bilirubin (0.0-1.0) mg/dL Direct Bilirubin (0.0-0.5) mg/dL AST (5-37) U/L ALT (0-40) U/L Alkaline Phosphatase (39-117) U/L C-Reactive Protein (< or = 0.50) mg/dL B-Natriuretic Peptide (<100) pg/mL Total Protein (6.5-8.0) g/dL Albumin (3.5-5.0) g/dL COVID-19 (DARIUS) (Negative) COVID-19 Clin Com Critical Care Time Critical Care Time Critical Care Time: Yes Total Critical Care Time: 40 Attestation: I have personally provided critical care time exclusive of time spent on separately billable procedures. Time includes review of lab data, radiology results, discussion with consultants, and monitoring for potential decompensation. Intervention performed as documented. Discharge Plan Discharge Clinical Impression: DOUGIE (acute kidney injury), Pedal edema Patient Disposition: Admitted As Inpatient Prescriptions: No Action cephalexin 500 mg tablet 500 mg PO Q6H 10 Days Qty: 40 0RF doxycycline hyclate 100 mg capsule 100 mg PO BID 10 Days Qty: 20 0RF levothyroxine 100 mcg tablet 100 mcg PO DAILY metformin 1,000 mg tablet 1,000 mg PO BID gabapentin 600 mg tablet PO tramadol 50 mg tablet 50 mg PO TID PRN cromolyn 4 % drops 1 drp ophthalmic (eye) QID celecoxib 200 mg capsule 200 mg PO DAILY latanoprost 0.005 % drops 1 drp ophthalmic-Right BEDTIME rosuvastatin 20 mg tablet 20 mg PO BEDTIME lisinopril 40 mg tablet 40 mg PO DAILY Farxiga 10 mg tablet 10 mg PO DAILY prednisone 20 mg tablet 60 mg PO DAILY Qty: 9 0RF hydrocortisone 2.5 % cream 1 appl topical BID PRN (Reason: skin irritation) Qty: 30 1RF
--- OUTSIDE RECORDS SUMMARY | 2022-06-07 08:32 | XMS_ITS ---
:1960 Author Organization [facility] Address [address] [place] [address] Care Team Providers Name Role Phone Hamlet Brothers Unavailable Unavailable PROBLEMS Type Condition ICD9-CM Code VOL37-HN Code Onset Condition SNO MED Code Dates Status Problem Heme + stool R19.5 Active 0933572 07 Problem B12 deficiency E53.8 Active Problem Deficiency of E53.8 Active 175641 00 other specified B group vitamins ALLERGIES Substance Reaction Event Type Date Status seasonal Unknown Non Drug Allergy Feb, Active ENCOUNTERS Encounter Location Date Diagnosis [facility] [address], [facility]iciency of other [facility] [address] [place] [address] vitamins E53.8 [facility] [address] Sep, B1 2 deficiency E53.8 [facility]oc [facility] [place] [address] [facility] [address] Jun, B1 2 deficiency E53.8 [facility] [address] [place] [address] [facility] [address] May, [facility] [place] [address] [facility] [address] May, B1 2 deficiency E53.8 [facility] [place] [address] [facility] [address] Apr, B1 2 deficiency E53.8 [facility]oc [facility] [address] [place] [address] [facility] [address] Sep, 2020 [facility] other [facility] [place] [address] vitamins E53.8 [facility] [address] May, [facility]iciency of other [facility] [place] [address] vitamins E53.8 [facility] [address] Jan, [facility]iciency of other [facility] [place] [address] vitamins E53.8 [facility] [address] Aug, [facility]oc [place] [address] [facility] [address] Aug, [facility]iciency [facility] other [facility] [place] [address] vitamins E53.8 [facility] [address] Apr, [facility] other [facility] [place] [address] vitamins E53.8 [facility] [address] Nov, De [facility]iciency of other [facility] [place] [address] vitamins E53.8 [facility] [address] Jul, [facility]oc [facility] [place] [address] [facility] [address] Mar, [facility]iciency [facility] other [facility] [place] [address] vitamins E53.8 [facility] [address] Nov, [facility] other [facility] [place] [address] vitamins E53.8 [facility] [address] [place] [address] Sep, [place] [phone] [facility] [address] Jun, [facility]oc [facility] [place] [address] [facility] [address] Jun, [facility]oc [facility] [place] [address] [facility] [address] Jun, [facility]oc [facility] [place] [address] [facility] [address] Jun, [facility]oc [facility] [place] [address] [facility] [address] Jun, [facility]oc [facility] [address] [place] [address] [facility] [address] Jun, De ficiency of other [facility] [place] [address] vitamins E53.8 [facility] [address] Jun, [facility]oc [facility] [place] [address] [facility] [address] May, [facility]oc [facility] [address] [place] [address] [facility] [address] Mar, [facility]oc [facility] [address] [place] [address] [facility] [address] Feb, [facility]oc [facility] [place] [address] [facility] [address] Feb, He me + stool R19.5 [facility]oc [facility] [address] [place] [address] [facility] [address] Feb, [facility]oc [facility] [address] [place] [address] [facility] [address] Feb, De ficiency of other [facility] [place] [address] vitamins E53.8 [facility] [address] Oct, Ot her vitamin B12 [facility] [address] [place] deficiency anemi a 281.1 [address] [facility] [address] Oct, [place] [address] [facility] [address] Jul, [facility]oc [facility] [address] [place] [address] [facility] [address] Apr, [facility]oc [facility] [address] [place] [address] [facility] [address] Feb, De ficiency of other [facility] [place] [address] vitamins E53.8 [facility] [address] Oct, De [facility]iciency of other [facility] [place]ou [place] [address] vitamins E53.8 [facility] [address] Jul, De [facility]iciency of other [facility] [place]ou [place] [address] vitamins E53.8 [facility] [address] Mar, [facility]oc [facility] [address] [place] [address] [facility] [address] Mar, Un specified iron [facility]oc [facility] [address] [place] deficiency anemi a 280.9 [address] [facility] [address] Jan, [facility]oc [facility] [address] [place] [address] [facility] [address] Nov, Ot her vitamin B12 [facility] [address] [place] deficiency anemi a 281.1 [address] [facility] [address] Jul, Ot her vitamin B12 [facility] [address] [place] deficiency anemi a 281.1 [address] [facility] [address] Mar, Ot her vitamin B12 [facility] [address] [place] deficiency anemi a 281.1 [address] [facility] [address] Nov, Ot her vitamin B12 [facility] [address] [place] deficiency anemi a 281.1 [address] [facility] [address] Jul, [facility]oc PC [address] [place] [address] [facility] [address] Jul, An emia, iron deficiency [facility] [address] [place] 280.9 [address] [facility] [address] Mar, Ot her vitamin B12 [facility] [address] [place] deficiency anemi a 281.1 [address] [facility] [address] Nov, An emia, iron deficiency [facility] [address] [place] 280.9 [address] [facility] [address] Aug, [facility]oc [facility] [address] [place] [address] [facility] [address] Aug, An emia 285.9 ; Other [facility] [address] [place] vitamin B12 defi ciency [address] anemia 281.1 and Anemia, iron deficiency 280.9 [facility] [address] Jul, [facility]oc [facility] [address] [place] [address] [facility] [address] Jul, Ot her vitamin B12 [facility] [address] [place] deficiency anemi a 281.1 [address] [facility] [address] Jun, Ot her vitamin B12 [facility] [address] [place] deficiency anemi a 281.1 [address] [facility] [address] Jun, [facility]oc [facility] [address] [place] [address] [facility] [address] May, Ot her vitamin B12 [facility] [address] [place] deficiency anemi a 281.1 [address] [facility] [address] Apr, Ot her vitamin B12 [facility] [address] [place] deficiency anemi a 281.1 [address] [facility] [address] Mar, Ot her vitamin B12 [facility] [address] [place] deficiency anemi a 281.1 [address] [facility] [address] Feb, [facility]oc [facility] [address] [place] [address] [facility] [address] Feb, Ot her vitamin B12 [facility] [address] [place] deficiency anemi a 281.1 [address] and Unspecified iron deficiency anemi a 280.9 [facility] [address] Jan, Un specified iron [facility] [address] [place] deficiency anemi a 280.9 [address] and Other vitami n B12 deficiency anemi a 281.1 [facility] [address] December, Ot her vitamin B12 [facility] [address] [place] deficiency anemi a 281.1 [address] [facility] [address] Nov, Un specified iron [facility] [address] [place] deficiency anemi a 280.9 [address] and Other vitami n B12 deficiency anemi a 281.1 [facility] [address] Oct, Assoc [facility] [address] [place] [address] [facility] [address] Oct, Ot her vitamin B12 [facility] [address] [place] deficiency anemi a 281.1 [address] [facility] [address] Sep, [facility]oc [facility] [address] [place] [address] Aug, 2011 Un specified iron [facility] [address] [place] deficiency anemi a 280.9 [address] and Other vitami n B12 deficiency anemi a 281.1 [facility] [address] [facility] Jan, [place] [phone] [facility] [address] [place] [address] Sep, [place] [phone] [facility] [address] [place] [address] Sep, [place] [phone] [facility] [address] [place] [address] May, [place] [phone] [facility] [address] [place] [address] Apr, [place] [id number] IMMUNIZATIONS Vaccine Route Administration Date Status B12 IM Intramuscular May 19, 2019 Administered B-12 IM Intramuscular Sep 22, 2019 Administered B-12 IM Intramuscular February 01, 2020 Administered B-12 IM Intramuscular May 31, 2020 Administered B-12 IM Intramuscular Oct 16, 2021 Administered B-12 IM Intramuscular December 11, 2017 Administered B12 IM Intramuscular February 14, 2022 Administered B-12 IM Intramuscular Apr 08, 2018 Administered B-12 IM Intramuscular November 30, 2018 Administered B12 IM Intramuscular Mar 28, 2014 Administered B-12 IM Intramuscular Oct 09, 2020 Administered B12 IM Intramuscular Jun 20, 2021 Administered B-12 IM Intramuscular Jul 16, 2021 Administered B-12 IM Intramuscular Jul 10, 2017 Administered B-12 IM Intramuscular March 06, 2017 Administered B-12 IM Intramuscular November 06, 2016 Administered B-12 IM Intramuscular March 18, 2016 Administered B-12 IM Intramuscular Jul 31, 2015 Administered B12 IM Intramuscular Mar 27, 2015 Administered B12 IM Intramuscular November 29, 2014 Administered B12 IM Intramuscular Jul 31, 2014 Administered SOCIAL HISTORY Never Assessed REASON FOR REFERRAL FUNCTIONAL STATUS PLAN OF CARE Activity Details Pending Test CBC w DIFF Pending Test Vitamin B12 Pending Test VITAMIN B12 AND FOLATE Future/Pending Procedure COLONOSCOPY [id number] VITAL SIGNS Weight 253 lbs 2017-03-10 Weight 235 lbs 2012-08-31 Weight 232 lbs 2011-09-05 Height 70.5 in 2017-03-10 Height N/A in 2012-08-31 Height 70.5 in 2011-09-05 BMI 35.78 kg/m2 2017-03-10 BMI 33.24 kg/m2 2012-08-31 BMI 32.81 kg/m2 2011-09-05 Heart Rate 76 /min 2017-03-10 Heart Rate 80 /min 2011-09-05 Blood pressure systolic 128 mm Hg 2017-03-10 Blood pressure diastolic 78 mm Hg 2017-03-10 MEDICATIONS Medication Instructions Dosage Frequency Start End Date Duration Stat us traMADol HCl Active 50mg Lisinopril Active 40mg Omeprazole Active 20mg Iron 325mg Active Combivent Active 14.7gm metFORMIN HCl Active 500mg Levothroid Active 0.125mg MiraLax (colon orally begin at mixed with Feb, 1 day Active prep) 8.3 5:00 p.m. the Gatorade or 2017 ounce ((238) day before the Crystal grams procedure Light Celecoxib Active Dulcolax Orally two take at 3:00 30 Feb, 1 day Active (colon prep) 5 tablets twice a p.m and 2017 MG day for one day 7:00p.m. Crestor 20mg Active Travatan 2.5ml Active Vitamin C Active 500mg PROCEDURES Procedure Date Ordered Result Body Site THER/PROPH/DIAG INJ, SC/IM December 02, 2012 THER/PROPH/DIAG INJ, SC/IM Mar 29, 2013 INJ VIT B-12 CYNOCOBLMN TO 1000 MCG Jul 16, 2021 THER/PROPH/DIAG INJ, SC/IM Apr 29, 2012 THER/PROPH/DIAG INJ, SC/IM November 20, 2015 INJ VIT B-12 CYNOCOBLMN TO 1000 MCG February 14, 2022 THER/PROPH/DIAG INJ, SC/IM November 03, 2011 INJ VIT B-12 CYNOCOBLMN TO 1000 MCG May 27, 2012 THER/PROPH/DIAG INJ, SC/IM January 06, 2012 INJ VIT B-12 CYNOCOBLMN TO 1000 MCG Apr 08, 2018 THER/PROPH/DIAG INJ, SC/IM Jun 28, 2012 INJ VIT B-12 CYNOCOBLMN TO 1000 MCG Mar 27, 2015 THER/PROPH/DIAG INJ, SC/IM February 01, 2020 INJ VIT B-12 CYNOCOBLMN TO 1000 MCG Oct 16, 2021 INJ VIT B-12 CYNOCOBLMN TO 1000 MCG Mar 30, 2012 THER/PROPH/DIAG INJ, SC/IM November 06, 2016 INJ VIT B-12 CYNOCOBLMN TO 1000 MCG December 05, 2011 INJ VIT B-12 CYNOCOBLMN TO 1000 MCG March 06, 2017 THER/PROPH/DIAG INJ, SC/IM Mar 28, 2014 INJ VIT B-12 CYNOCOBLMN TO 1000 MCG Jul 26, 2012 INJ VIT B-12 CYNOCOBLMN TO 1000 MCG Jul 31, 2014 THER/PROPH/DIAG INJ, SC/IM Oct 09, 2020 INJ VIT B-12 CYNOCOBLMN TO 1000 MCG Mar 29, 2013 INJ VIT B-12 CYNOCOBLMN TO 1000 MCG Sep 22, 2019 INJ VIT B-12 CYNOCOBLMN TO 1000 MCG January 06, 2012 INJ VIT B-12 CYNOCOBLMN TO 1000 MCG May 31, 2020 BP SCR PRFRM RCMDD DEFIND SCR INTVL March 10, 2017 THER/PROPH/DIAG INJ, SC/IM January 06, 2012 THER/PROPH/DIAG INJ, SC/IM Jul 26, 2012 FLU IMM NO ORD/ADMIN DOC IVANNA March 10, 2017 THER/PROPH/DIAG INJ, SC/IM Jul 28, 2013 THER/PROPH/DIAG INJ, SC/IM Aug 31, 2012 INJ VIT B-12 CYNOCOBLMN TO 1000 MCG March 18, 2016 THER/PROPH/DIAG INJ, SC/IM May 27, 2012 INJ VIT B-12 CYNOCOBLMN TO 1000 MCG November 23, 2013 THER/PROPH/DIAG INJ, SC/IM December 05, 2011 THER/PROPH/DIAG INJ, SC/IM Mar 30, 2012 THER/PROPH/DIAG INJ, SC/IM Jul 31, 2015 THER/PROPH/DIAG INJ, SC/IM Sep 22, 2019 THER/PROPH/DIAG INJ, SC/IM May 31, 2020 INJ VIT B-12 CYNOCOBLMN TO 1000 MCG Oct 09, 2020 THER/PROPH/DIAG INJ, SC/IM December 11, 2017 INJ VIT B-12 CYNOCOBLMN TO 1000 MCG Apr 29, 2012 THER/PROPH/DIAG INJ, SC/IM November 29, 2014 INJ VIT B-12 CYNOCOBLMN TO 1000 MCG December 11, 2017 THER/PROPH/DIAG INJ, SC/IM Jun 20, 2021 INJ VIT B-12 CYNOCOBLMN TO 1000 MCG November 29, 2014 THER/PROPH/DIAG INJ, SC/IM November 30, 2018 INJ VIT B-12 CYNOCOBLMN TO 1000 MCG Jul 28, 2013 INJ VIT B-12 CYNOCOBLMN TO 1000 MCG February 01, 2020 INJ VIT B-12 CYNOCOBLMN TO 1000 MCG November 06, 2016 DOC MEDS VERIFIED W/PT OR RE March 10, 2017 INJ VIT B-12 CYNOCOBLMN TO 1000 MCG Mar 28, 2014 BMI >=30 CALCUATE W/FOLLOWUP March 10, 2017 INJ VIT B-12 CYNOCOBLMN TO 1000 MCG November 20, 2015 INJ VIT B-12 CYNOCOBLMN TO 1000 MCG Aug 31, 2012 INJ VIT B-12 CYNOCOBLMN TO 1000 MCG May 19, 2019 INJ VIT B-12 CYNOCOBLMN TO 1000 MCG Jul 10, 2017 THER/PROPH/DIAG INJ, SC/IM Oct 16, 2021 THER/PROPH/DIAG INJ, SC/IM May 19, 2019 THER/PROPH/DIAG INJ, SC/IM Jul 10, 2017 INJ VIT B-12 CYNOCOBLMN TO 1000 MCG Jul 31, 2015 THER/PROPH/DIAG INJ, SC/IM Jul 16, 2021 INJ VIT B-12 CYNOCOBLMN TO 1000 MCG December 02, 2012 THER/PROPH/DIAG INJ, SC/IM February 14, 2022 THER/PROPH/DIAG INJ, SC/IM Apr 08, 2018 THER/PROPH/DIAG INJ, SC/IM Mar 27, 2015 INJ VIT B-12 CYNOCOBLMN TO 1000 MCG January 06, 2012 INJ VIT B-12 CYNOCOBLMN TO 1000 MCG Jun 28, 2012 COLORECTAL CA SCREEN DOC REV March 10, 2017 INJ VIT B-12 CYNOCOBLMN TO 1000 MCG November 30, 2018 THER/PROPH/DIAG INJ, SC/IM March 06, 2017 THER/PROPH/DIAG INJ, SC/IM November 23, 2013 THER/PROPH/DIAG INJ, SC/IM Jul 31, 2014 INJ VIT B-12 CYNOCOBLMN TO 1000 MCG Jun 20, 2021 INJ VIT B-12 CYNOCOBLMN TO 1000 MCG November 03, 2011 THER/PROPH/DIAG INJ, SC/IM March 18, 2016 RESULTS Name Result Date Reference Range Complete Blood Count Auto Diff 2021-05-28 White Blood Count 10.4 4.8-10.8 Red Blood Count 5.00 4.60-5.80 Hemoglobin 14.5 14.0-18.0 Hematocrit 44.7 42-52 Mean Corpuscular Volume 89.4 80-98 Mean Corpuscular Hemoglobin 29.0 27.0 -33.0 Mean Corpuscular HGB Conc 32.4 31.0-3 6.0 Red Cell Distribution Width 13.2 11.0 -16.0 Platelet Count 270 160-400 Mean Platelet Volume 9.9 9.4-12.4 Neutrophils Percent Auto 61.6 45-73 Imm Gran Pct Auto 0.6 0.0-0.4 Lymphocytes Percent Auto 19.5 20-40 Monocytes Percent Auto 6.2 2-11 Eosinophils Percent Auto 11.6 0-4 Basophils Percent Auto 0.5 0-2 NRBC Pct Auto 0.0 0.0-0.2 Neutrophils Absolute Auto 6.4 2.0-8. 3 Imm Gran Abs Auto 0.06 0.00-0.03 Lymphocytes Absolute Auto 2.0 1.2-4. 9 Monocytes Absolute Auto 0.7 0.1-1.2 Eosinophils Absolute Auto 1.2 0.0-0. 4 Basophils Absolute Auto 0.1 0.0-0.2 NRBC Abs Auto 0.000 0.0-0.012 Vitamin B12 2021-05-28 Vitamin B12 220 200-900 GLUCOSE,WHOLE BLOOD 2017-10-05 GLUCOSE,WHOLE BLOOD 155 60-115 B12 2012-08-31 B12 > 1200 200-900 FOLATE 2012-08-31 FOLATE 15.6 > OR = 4.0 IRON + IBC (FE) 2012-08-31 IRON 80 45-160 IBC 338 228-428 % SATURATION 24 20-50 FERRITIN 2012-08-31 FERRITIN 92 20-250 CBC w DIFF 2012-08-31 WBC 9.2 4.8-10.8 ABSOLUTE NEUTROPHIL COUNT 6.2 2.2-7. 9 RBC 4.54 4.60-5.80 HEMOGLOBIN 13.7 14.0-18.0 HEMATOCRIT 39.9 42-52 MCV 87.9 80-98 MCH 30.1 27.0-33.0 MCHC 34.2 31.0-36.0 PLATELET COUNT 202 160-400 RDW 12.7 11.0-16.0 NEUTROPHILS 67.8 45-73 LYMPHOCYTES 23.5 20-40 MONOCYTES 6.0 2-11 EOSINOPHILS 1.9 0-4 BASOPHILS 0.8 0-2 IRON + IBC (FE) 2011-09-05 IRON 59 45-160 IBC 356 228-428 % SATURATION 17 20-50 FERRITIN 2011-09-05 FERRITIN 32 20-250 CBC w DIFF 2011-09-05 WBC 7.5 4.8-10.8 ABSOLUTE NEUTROPHIL COUNT 4.6 2.2-7. 9 RBC 4.80 4.60-5.80 HEMOGLOBIN 13.9 14.0-18.0 HEMATOCRIT 41.4 42-52 MCV 86.3 80-98 MCH 29.0 27.0-33.0 MCHC 33.6 31.0-36.0 PLATELET COUNT 249 160-400 RDW 12.0 11.0-16.0 NEUTROPHILS 60.5 45-73 LYMPHOCYTES 29.8 20-40 MONOCYTES 6.5 2-11 EOSINOPHILS 2.4 0-4 BASOPHILS 0.8 0-2 REASON FOR VISIT B12 deficiency, B12, B12, b12, Need B 12 Levels done , b12 deficiency, B12, B12 deficiency, b12, question on vit c and iron, b12, B12 deficiency, b12, B12, B12 deficiency, Patient presents today for a B12 injection., Patient presents today for B12 injection, B12 done every 3 month, HEME+ STOOL, Re:RE:R e:RE:colinoss[facility]ypy, Re:RE:[facility]ypy, [facility]y, patient portal , patient portal , B12, prep medication/iron, iron, Heme + Stool, canceled procedure, Wants a script, Heme + stool, RE: Soon appointment, B12(every 4 months), B12 deficiency, Needs B12 Shot, 07-18-16 ? did patient have a b12 shot, b12, unlock 03/18/2016 note, B12 deficiency, b12, B12, Patient portal, B12, next colon recall, B12, B12,b-12, B12 injection, B12 injection, B-12 injections, B12 injection, B12 injection, B12 injection, wants blood results, yrly, B12 deficiency, B [address] Brothers, B12 Inj., B12 injection, B12 Inj., B12 Inj., b12 injection, need cpt code, B12 injection, B12 INJ, B12 INJECTION, B 12 inj.,B12 inj., B12 inj. Shot per order of , B12 shots, follow up Insurance Providers [facility] Member Patient Patient Patient Patient Patient Subscriber Subscriber Subscriber Group Insurance Plan Plan Plan Plan ID Relationship Address Phone Name Date of ID Name Date of No Type Insurance Insurance Insurance Coverage to Subscriber Address Phone Name Dates MEDICARE [phone] MEDICARE self [place] 823 [id number] [place] [address] [place] [address] UNITED [phone] [place] self [place] [id number] [facility] [address] [address] [facility] [address] MEDICAID [phone] MEDICAID self [place] 823 [id number] OF [place] [id number] [place] [address] [facility] [address]
--- OUTSIDE RECORDS SUMMARY | 2022-06-07 08:32 | XMS_ITS | Continuity of Care Document ---
:1960 Author Organization [facility] Address [address] [place] [id number] Care Team Providers Name Role Phone Abundio Lizarraga MD Primary Care Physician [id number] Encounter [facility] Date(s): 04/23/22 - 04/30/22 [facility] [address] [place] [id number] Attending Physician: Rajat Gaytan MD Admitting Physician: Rajat Gaytan MD Referring Physician: Jose Antonio Hills Allergies, Adverse Reactions, Alerts No Known Allergies Medications Aleve = 220 mg, By Mouth, Every 8 hours, PRN as needed for arthritis, 0 Refills, Maintenance, 11/29/18 13:02:20 EDT Start Date: 11/29/18 Status: OrderedCeleBREX 200 mg oral capsule 1 capsule = 200 mg, By Mouth, Daily at bedtime, 0 Refills, Maintenance, 11/29/18 13:22:57 EDT Start Date: 11/29/18 Status: OrderedCrestor 20 mg oral tablet 1 tablet = 20 mg, By Mouth, Daily at bedtime, 0 Refills, Maintenance Start Date: 01/01/12 Status: Orderedferrous sulfate 325 mg oral tablet 1 tablet = 325 mg, By Mouth, Daily in AM, 0 Refills, Maintenance, 01/01/12 18:06:53 EDT Start Date: 01/01/12 Status: OrderedGabapentin = 600 mg, By Mouth, 2 times a day, 0 Refills, Maintenance, 11/29/18 13:22:00 EDT Start Date: 11/29/18 Status: Orderedlevothyroxine 0.1 mg oral tablet 1 tablet = 100 mcg, By Mouth, Daily in AM, 0 Refills, Maintenance, 11/29/18 13:00:00 EDT Start Date: 11/29/18 Status: Orderedlisinopril 40 mg oral tablet 1 tablet, By Mouth, Daily in AM, # 30 tablet, 0 Refills, Soft Stop, 04/12/09 20:50:16 EDT Start Date: 04/12/09 Stop Date: 05/12/09 Status: Orderedmetformin 500 mg oral tablet 1,000 mg, By Mouth, 2 times a day, 0 Refills, Maintenance Start Date: 04/12/09 Stop Date: 05/12/09 Status: OrderedOmeprazole = 20 mg, By Mouth, 2 times a day, 0 Refills, Maintenance, 11/29/18 12:56:15 EDT Start Date: 11/29/18 Status: OrderedPatient's Own Meds vitamin b12, Maintenance, given at medical office, 11/29/18 13:12:44 EDT Start Date: 11/29/18 Status: Orderedtramadol 50 mg oral tablet 1 tablet = 50 mg, By Mouth, 2 times a day, 0 Refills, Maintenance Start Date: 01/01/12 Status: OrderedTravatan 1 drops, Eyes, Both, Daily before dinner, 0 Refills, Maintenance, 11/29/18 12:53:05 EDT Start Date: 11/29/18 Status: OrderedVentolin 90 mcg Inhaler 2, puffs, Inhalation, 4 times a day, PRN, Refills 0, Maintenance, 11/29/18 13:01:51 EDT Start Date: 11/29/18 Status: OrderedVitamin C 500 mg oral tablet 1 tablet = 500 mg, By Mouth, Daily at supper, 0 Refills, Maintenance, 01/01/12 18:06:36 EDT Start Date: 01/01/12 Status: Ordered Problem List Condition Effective Dates Status Health Status Informant Obese class I(Confirmed) Active Vital Signs Most recent to oldest [Reference Range]: 1 Height 180 cm (04/23/22 10:37 AM) Weight 112.72 kg (04/23/22 10:37 AM) Oxygen Saturation [94-100 %] 97 % (04/23/22 10:37 AM) Pulse Rate [55-90 bpm] 123 bpm *H* (04/23/22 10:37 AM) Body Mass Index [18.5-24.99] 34.79 *>HHI* (04/23/22 10:37 AM) Blood Pressure [90-138/55-84 mm Hg] 80/40 mm Hg *L* (04/23/22 10:37 AM) Mode of Delivery (Oxygen) Room air (04/23/22 10:37 AM) Blood pressure sites Arm, left (04/23/22 10:37 AM) Weight Obtained Via Patient/family stated (04/23/22 10:37 AM) Care Team PersonnelName: Abundio Lizarraga MD Address: [address] Abundio [place], [place] [address]
[2022-06-07 08:48] LABS: MANUAL DIFF FLAG NO
[2022-06-07 08:52] LABS: Basophils Percent Auto 0.4 % (0-2); Eosinophils Absolute Auto 1.3 X10*3/uL (0.0-0.4); Eosinophils Percent Auto 15.8 % (0-4); Hemoglobin 11.4 g/dl (14.0-18.0); Imm Gran Abs Auto 0.04 X10*3/uL (0.00-0.03); Imm Gran Pct Auto 0.5 % (0.0-0.4); Lymphocytes Absolute Auto 1.4 X10*3/uL (1.2-4.9); Lymphocytes Percent Auto 16.9 % (20-40); Mean Corpuscular HGB Conc 31.7 g/dl (31.0-36.0); Mean Corpuscular Hemoglobin 28.2 pg (27.0-33.0); Mean Corpuscular Volume 89.1 fL (80.0-98.0); Mean Platelet Volume 9.1 fL (9.4-12.4); Monocytes Absolute Auto 0.6 X10*3/uL (0.1-1.2); Monocytes Percent Auto 7.4 % (2-11); Neutrophils Absolute Auto 4.9 x10*3/uL (2.0-8.3); Platelet Count 221 X10*3/uL (160-400); Red Blood Count 4.04 X10*6/uL (4.60-5.80); Red Cell Distribution Width 14.1 % (11.0-16.0); White Blood Count 8.3 X10*3/uL (4.8-10.8)
[2022-06-07 08:55] LABS: Prothrombin Time 11.9 SEC (10.0-13.1)
[2022-06-07 09:03] LABS: Lactic Acid 3.3 mmol/L (0.5-2.0)
[2022-06-07 09:05] LABS: Alanine Aminotransferase 17 U/L (0-40); Albumin Level 3.5 g/dL (3.5-5.0); Alkaline Phosphatase 63 U/L (39-117); Anion Gap 20 (12-20); Aspartate Amino Transferase 17 U/L (5-37); Bilirubin Direct 0.2 mg/dL (0.0-0.5); Bilirubin Total 0.4 mg/dL (0.0-1.0); Blood Urea Nitrogen 28 mg/dL (9-16); C Reactive Protein 7.42 mg/dL (< or = 0.50); Calcium 8.8 mg/dL (8.4-10.2); Carbon Dioxide 22 mmol/L (22-29); Chloride 105 mmol/L (96-108); Creatinine Clr Calc Pharmacy 48.7; Estimated Glomerular Filt Rate 35; Glucose Random 295 mg/dL (60-115); Sodium 142 mmol/L (135-145); Total Protein 6.1 g/dL (6.5-8.0)
[2022-06-07 09:09] LABS: B Type Natriuretic Peptide < 10 pg/mL (<100)
[2022-06-07 09:35] LABS: COVID-19 Test Negative (Negative); IDNOW Serial# 16C4AD1C
[2022-06-07 09:49] LABS: Erythrocyte Sedimentation Rate 53 MM/HR (0-15)
[2022-06-07] MEDS: cefTRIAXone sodium 1 GM in 0.9 % Sodium Chloride 50 ML IV (10:02)
[2022-06-07 10:46] LABS: Reflex Lactate? Lactic Acid Added
[2022-06-07 11:05] VITALS: BP 106/62; PULSE 103; RESP 18; TEMP 37; O2SAT 98
[2022-06-07 11:52] LABS: ~Lactic Acid-LAB USE ONLY 3.1 mmol/L (0.5-2.0)
[2022-06-07] MEDS: 0.9 % Sodium Chloride 1,000 ML 75 ML IVCONT ×2 (12:06→20:15)
--- NOTE | 2022-06-07 12:22 | PM.IMHP ---
History of Present Illness Date of Service: 06/07/22 Chief Complaint: swelling in the leg x 1 week 62 year old male with diabetes on Metformin, HTN controlled on Lisinopril, Eczema involing large surface, Hypothyroidism on replacement therapy. He presents to the ED with increased swelling in both legs over a prerid of 2 weeeks, he has no shortness of no othopnea, no PND, no other feature for heart failure, BNP level is normal, CXR no evidence of CHF, he has DOUGIE with serum creatine of 1.96, last creatine on March 31, 2022 1.01, lactic of 3.3 likely from metformin. Review of Systems Review of Systems: Gen: no fever Resp: no sob, no cough CV: no chest, no ROCK, no leg edema GI: No n/v, no abd pain Neuro: No confusion Yes all other systems are reviewed and are negative [facility] Medical History (Updated 06/07/22 @ 12:26 by Sourav Vega MD) Acquired hypothyroidism Diabetes Eczema HTN (hypertension) Social History Household Members: Spouse Housing: Apartment Do you presently have visiting nurse or other home services: No Patient Tobacco Use Status: Former Tobacco user Smoked in Last 30 Days: No Use of substances other than those prescribed or required for medical reasons: No Currently Displaying Signs/Symptoms of Drug Intoxication Withdrawal: No Advance Directives: No Advance Directives Information Provided: Yes Do you have thoughts of harming others: None Do you have a plan to hurt others: No Plan Recently lost weight without trying: No Eating poorly because of decreased appetite: No Nutrition Risks: No Nutritional Risk Poor oral hygiene: No Current occupational status: retired and disabled Meds Allergies Allergy/AdvReac Type Severity Reaction Status Date / Time No Known Allergies Allergy Verified 06/07/22 23:49 [No Known Allergies*] hay fever Allergy Unknown sneezing Uncoded 02/11/22 10:44 watery eyes Active Medications: Current Medications Sodium Chloride (Ns) 1,000 mls @ 75 mls/hr IVCONT .[id number] STEPHIE Last Admin: 06/07/22 12:06 Dose: 75 mls/hr Home Medications Medication Instructions Recorded Confirmed Last Taken Type celecoxib 200 mg capsule 200 mg PO DAILY 02/11/22 06/07/22 06/07/22 History dapagliflozin 10 mg tablet 10 mg PO DAILY 02/11/22 06/07/22 06/07/22 History (Farxiga) gabapentin 600 mg tablet 600 mg PO BID 02/11/22 06/07/22 06/07/22 History latanoprost 0.005 % eye drops 1 drp ophthalmic-Right BEDTIME 02/11/22 06/07/22 06/06/22 History levothyroxine 100 mcg tablet 100 mcg PO DAILY@0600 02/11/22 06/07/22 06/07/22 History lisinopril 40 mg tablet 40 mg PO DAILY 02/11/22 06/07/22 06/07/22 History metformin 1,000 mg tablet 1,000 mg PO BID 02/11/22 06/07/22 06/07/22 History rosuvastatin 20 mg tablet 20 mg PO BEDTIME 02/11/22 06/07/22 06/06/22 History tramadol 50 mg tablet 100 mg PO BEDTIME 02/11/22 06/07/22 06/06/22 History ascorbic acid (vitamin C) 500 mg 500 mg PO DAILY 06/07/22 06/07/22 06/07/22 History tablet (Vitamin C) ferrous sulfate 325 mg (65 mg 325 mg PO DAILY 06/07/22 06/07/22 06/07/22 History iron) tablet (Iron (ferrous sulfate)) furosemide 40 mg tablet 1 tab PO DAILY 06/07/22 06/07/22 06/07/22 History hydroxyzine HCl 10 mg tablet 1 tab PO Q6-8H PRN Itching 06/07/22 06/07/22 Unknown History omeprazole 20 mg capsule,delayed 1 cap PO DAILY@0630 06/07/22 06/07/22 06/07/22 History release Physical Exam Vital Signs and Narrative: Vital Signs: Last Vital Signs Temp 98.6 F 06/07/22 11:05 Pulse 103 H 06/07/22 11:05 Resp 18 06/07/22 11:05 BP 106/62 06/07/22 11:05 Pulse Ox 98 06/07/22 11:05 O2 Del Method 06/07/22 11:05 BMI result Body Mass Index 35.2 Const: Other: Constitutional: Alert, in no distress, overweight. Mental Status: Oriented to person, place and time. Eyes: Pupils are equal, round and reactive to light. Ear, Nose and Throat: Oropharynx clear, mucous membranes moist. Ears and nose without eformities. Trachea midline. Respiratory: Clear to auscultation. No wheezing, rales or rhonchi. Cardiovascular: S1 S2 regular. No murmurs, rubs or gallops. Non pitting swelling of both legs Gastrointestinal: Abdomen soft, non-tender, non-distended. Normal bowel sounds.? Neurologic: Cranial nerves II-XII grossly intact. No focal neurological deficits. Moves all extremities spontaneously.? Skin: extensive eczematous rash in most his skin sparin face? Musculoskeletal: No cyanosis or clubbing. Psychiatric: Normal mood and affect? Results Labs CBC and Chem 7: 06/07/22 08:43 06/08/22 07:54 Labs: Laboratory Results - last 24 hr 06/07/22 06/07/22 06/07/22 08:42 08:43 08:43 MCV 89.1 MCH 28.2 MCHC 31.7 RDW 14.1 Plt Count 221 D MPV 9.1 L Immature Gran % (Auto) 0.5 H Neut % (Auto) 59.0 Lymph % (Auto) 16.9 L [place] % (Auto) 7.4 Eos % (Auto) 15.8 H Baso % (Auto) 0.4 Lymph # (Auto) 1.4 [place] # (Auto) 0.6 Eos # (Auto) 1.3 H Baso # (Auto) 0.0 Abs Immat Gran (auto) 0.04 H Absolute Neuts (auto) 4.9 Absolute Nucleated RBC 0.000 Nucleated RBC % (auto) 0.0 ESR PT INR Anion Gap 20 Estim Creat Clear Calc 48.7 Estimated GFR 35 Random Glucose 295 H D Lactic Acid Lactic Acid F/U @ 2Hr Calcium 8.8 D Total Bilirubin 0.4 Direct Bilirubin 0.2 AST 17 D ALT 17 Alkaline Phosphatase 63 C-Reactive Protein 7.42 H B-Natriuretic Peptide Total Protein 6.1 L Albumin 3.5 COVID-19 (DARIUS) Negative COVID-19 Clin Com See Note 06/07/22 06/07/22 06/07/22 08:43 08:43 08:43 MCV MCH MCHC RDW Plt Count MPV Immature Gran % (Auto) Neut % (Auto) Lymph % (Auto) [place] % (Auto) Eos % (Auto) Baso % (Auto) Lymph # (Auto) [place] # (Auto) Eos # (Auto) Baso # (Auto) Abs Immat Gran (auto) Absolute Neuts (auto) Absolute Nucleated RBC Nucleated RBC % (auto) ESR PT 11.9 INR 1.0 Anion Gap Estim Creat Clear Calc Estimated GFR Random Glucose Lactic Acid 3.3 H* Lactic Acid F/U @ 2Hr Calcium Total Bilirubin Direct Bilirubin AST ALT Alkaline Phosphatase C-Reactive Protein B-Natriuretic Peptide < 10 Total Protein Albumin COVID-19 (DARIUS) COVID-19 [employer] 06/07/22 06/07/22 08:54 11:05 MCV MCH MCHC RDW Plt Count MPV Immature Gran % (Auto) Neut % (Auto) Lymph % (Auto) [place] % (Auto) Eos % (Auto) Baso % (Auto) Lymph # (Auto) [place] # (Auto) Eos # (Auto) Baso # (Auto) Abs Immat Gran (auto) Absolute Neuts (auto) Absolute Nucleated RBC Nucleated RBC % (auto) ESR 53 H PT INR Anion Gap Estim Creat Clear Calc Estimated GFR Random Glucose Lactic Acid Lactic Acid F/U @ 2Hr 3.1 H* Calcium Total Bilirubin Direct Bilirubin AST ALT Alkaline Phosphatase C-Reactive Protein B-Natriuretic Peptide Total Protein Albumin COVID-19 (DARIUS) COVID-19 [employer] [facility] Radiologist's Impressions: Impressions Venous Duplex 06/07/22 09:27 IMPRESSION: No evidence of deep venous thrombosis in the right or left lower extremity. Chest X-Ray 06/07/22 09:50 IMPRESSION: Unremarkable examination. Assessment and Plan (1) DOUGIE (acute kidney injury): Status: Acute (2) Pedal edema: Status: Acute (3) Eczema: Status: Acute (4) Diabetes: Status: Acute (5) Diabetes: Status: Acute (6) HTN (hypertension): Status: Acute (7) Acquired hypothyroidism: Status: Acute Plan \62 year old male with diabetes on Metformin, HTN controlled on Lisinopril, Eczema involing large surface, Hypothyroidism on replacement therapy. He presents to the ED with increased swelling in both legs over a prerid of 2 weeeks and found to have DOUGIE, no evidence of heart failure #DOUGIE with leg edam--concern for nephortic syndrome -check UA -stop Lisinopril -Nephrology consult -Daily labs -Avoid nephrotoxins #Leg edema--negative DVT, no evidence of heart failure but get an echo to be sure #Diabetes--hold Metformin, SSI, diabetic diet #HTN--on Lisinopril 40 daily, hold #hypothyroidism--continue Levothyroxine #HLD--Rosuvastatin or substitute --#Eczema--Hydrocortisone cream #Neuropathy--Gabapenting #Lactic acidosis--likely from metformin, no evidence of sepsis Admission to span at least 2 midnight for management of renal failure, legd Quality Stroke Does the patient have a stroke diagnosis?: No VTE Prior VTE?: No VTE Risk Level:: Medical - moderate - high VTE Device Contraindication: Treatment Not Indicated VTE Drug Contraindication: N/A - Med Ordered
[2022-06-07 13:14] LABS: Reflex Lactate? 2 Y
[2022-06-07 13:39] LABS: Glucose, Whole Blood 190 mg/dL (60-115)
--- NOTE | 2022-06-07 13:40 | PHA.MEDREC ---
Pharmacy Consult ? Medication Reconciliation Pharmacy has completed the medication reconciliation. Patient reports being on Travatan, however there is no claim history associated with prescription on record.
[2022-06-07 13:52] LABS: Appearance Urine Clear; Color Urine Yellow; Glucose Urine UA >=1000 mg/dL (Negative); Leukocyte Esterase Urine Negative (Negative); Nitrite Urine Negative (Negative); PH 6.5 (5.0-9.0); Specific Gravity - Urine >= 1.030 (1.005-1.025); UMIC TRIGGER UA YES; UMIC TRIGGER UACC YES; Urine Blood Negative (Negative); Urine Ketones Negative (Negative); Urine Protein Trace mg/dL (Neg-Trace)
[2022-06-07 14:28] LABS: Bacteria Urine None Seen (None Seen); Hyaline Casts Urine 0-2 /LPF (0-2); Squamous Epithelial Cell Urine 0-2 /HPF (0-2); WBC Urine 0-5 /HPF (0-5)
[2022-06-07 15:13] LABS: ~Lactic Acid-LAB USE ONLY 2.7 mmol/L (0.5-2.0)
--- NOTE | 2022-06-07 15:40 | MHC.CM.PN ---
Lives at home independently, still drives, owns rolling walker w/brakes. Drove self to [facility], intends on driving home. No prior services. Plan is home via self car. CM to follow.
[2022-06-07 16:00] VITALS: BP 114/65; PULSE 111; RESP 17; TEMP 36.2; O2SAT 99
[2022-06-07 16:17] LABS: Glucose, Whole Blood 235 mg/dL (60-115)
[2022-06-07] MEDS: Insulin Lispro 100 UNIT/ML 3 ML VIAL SUBCUT ×2 (16:55→20:15)
[2022-06-07 19:44] VITALS: BP 147/74; PULSE 134; RESP 19; TEMP 36.5; O2SAT 97
[2022-06-07 20:02] LABS: Glucose, Whole Blood 270 mg/dL (60-115)
[2022-06-07] MEDS: Acetaminophen 325 MG TABLET 650 MG PO (20:14)
[2022-06-07] MEDS: 0.9 % Sodium Chloride Flush 3 ML SYRINGE IVFLUSH (20:16)
[2022-06-08] VITALS: BP 108/53; PULSE 112; RESP 18; TEMP 36.6; O2SAT 95
--- NOTE | 2022-06-08 | ECG_ITS ---
Test Reason : cp Blood Pressure : / mmHG Vent. Rate : 125 BPM Atrial Rate : 125 BPM P-R Int : 132 ms QRS Dur : 078 ms QT Int : 328 ms P-R-T Axes : 049 043 035 degrees QTc Int : 473 ms Sinus tachycardia Nonspecific T wave abnormality Inferior leads Borderline ECG No previous ECGs available Referred By: Sourav Vega Electronically Signed By:KALI SPRING MD
[2022-06-08 03:55] VITALS: BP 138/70; PULSE 121; RESP 18; TEMP 36.4; O2SAT 95
[2022-06-08] MEDS: Acetaminophen 325 MG TABLET 650 MG PO (05:34)
[2022-06-08 07:36] LABS: Glucose, Whole Blood 210 mg/dL (60-115)
[2022-06-08 08:00] VITALS: BP 140/63; PULSE 126; RESP 18; TEMP 36.2; O2SAT 99
[2022-06-08] MEDS: Insulin Lispro 100 UNIT/ML 3 ML VIAL SUBCUT (08:11)
[2022-06-08] MEDS: Celecoxib 200 MG CAPSULE PO (08:12)
[2022-06-08] MEDS: Gabapentin 600 MG TABLET PO (08:12)
[2022-06-08] MEDS: metFORMIN HCl 1,000 MG TABLET 1000 MG PO (08:12)
[2022-06-08] MEDS: Levothyroxine Sodium 100 MCG TABLET PO (08:12)
[2022-06-08] MEDS: lisinopriL 40 MG TABLET PO (08:12)
[2022-06-08] MEDS: Furosemide 40 MG TABLET PO (08:13)
[2022-06-08] MEDS: Ferrous Sulfate 324 MG TABLET.DR PO (08:14)
[2022-06-08] MEDS: Ascorbic Acid 500 MG TABLET PO (08:14)
[2022-06-08] MEDS: Omeprazole 20 MG CAPSULE.DR PO (08:23)
[2022-06-08 08:50] LABS: Anion Gap 21 (12-20); Blood Urea Nitrogen 21 mg/dL (9-16); Calcium 8.8 mg/dL (8.4-10.2); Carbon Dioxide 19 mmol/L (22-29); Chloride 105 mmol/L (96-108); Creatinine Clr Calc Pharmacy 68.2; Estimated Glomerular Filt Rate 51; Glucose Random 242 mg/dL (60-115); Potassium 4.8 mmol/L (3.3-5.1); Sodium 140 mmol/L (135-145)
--- NOTE | 2022-06-08 10:34 | P.PNNP_ITS ---
Subjective Subjective Date of Service: 06/08/22 Interval history: seen and examined Physical Exam Vital Signs: Vital Signs: Last Vital Signs Temp 97.2 F 06/08/22 08:00 Pulse 126 H 06/08/22 08:00 Resp 18 06/08/22 08:00 BP 140/63 H 06/08/22 08:00 Pulse Ox 99 06/08/22 08:00 O2 Del Method 06/08/22 08:00 BMI result Body Mass Index 35.2 Objective Data Labs CBC & Chem 7: 06/07/22 08:43 06/08/22 07:54 Labs: Laboratory Results - last 24 hr 06/07/22 06/07/22 06/07/22 11:05 13:32 13:43 Sodium Potassium Chloride Carbon Dioxide Anion Gap BUN Creatinine Estim Creat Clear Calc Estimated GFR POC Glucose 190 H Random Glucose Lactic Acid F/U @ 2Hr 3.1 H* Lactic Acid F/U @ 4Hr Calcium Urine Color Yellow Urine Appearance Clear Urine pH 6.5 Ur Specific [place] >= 1.030 H Urine Protein Trace Urine Glucose (UA) >=1000 H Urine Ketones Negative Urine Blood Negative Urine Nitrite Negative Ur Leukocyte Esterase Negative Urine RBC 3-5 H Urine WBC 0-5 Ur Squamous Epith Cells 0-2 Urine Bacteria None Seen Hyaline Casts 0-2 06/07/22 06/07/22 06/07/22 14:36 15:51 19:47 Sodium Potassium Chloride Carbon Dioxide Anion Gap BUN Creatinine Estim Creat Clear Calc Estimated GFR POC Glucose 235 H 270 H Random Glucose Lactic Acid F/U @ 2Hr Lactic Acid F/U @ 4Hr 2.7 H* Calcium Urine Color Urine Appearance Urine pH Ur Specific [place] Urine Protein Urine Glucose (UA) Urine Ketones Urine Blood Urine Nitrite Ur Leukocyte Esterase Urine RBC Urine WBC Ur Squamous Epith Cells Urine Bacteria Hyaline Casts 06/08/22 06/08/22 07:28 07:54 Sodium 140 Potassium 4.8 Chloride 105 Carbon Dioxide 19 L Anion Gap 21 H BUN 21 H Creatinine 1.40 Estim Creat Clear Calc 68.2 Estimated GFR 51 POC Glucose 210 H Random Glucose 242 H Lactic Acid F/U @ 2Hr Lactic Acid F/U @ 4Hr Calcium 8.8 Urine Color Urine Appearance Urine pH Ur Specific [place] Urine Protein Urine Glucose (UA) Urine Ketones Urine Blood Urine Nitrite Ur Leukocyte Esterase Urine RBC Urine WBC Ur Squamous Epith Cells Urine Bacteria Hyaline Casts Procedures Date of Service Date of Service: 06/08/22 Assessment & Plan Assessment and plan (1) DOUGIE (acute kidney injury): Status: Acute Plan DOUGIE due to disruption of autoregulation of kidneys on EASTON 2_, ACEi and loop diuretics hypotensive earlier normal baseline kidney function REC discontinue IVF avoid EASTON 2- (celecoxib) can resume ACEi and loop diuretics follow kidney function and electrolytes Time Spent With Patient Time: Total time spent is greater than 50% in coordination of care (as documented) at patient's floor/unit and/or counseling patient: Progress Note: Quality Stroke Does the patient have a stroke diagnosis?: No
--- NOTE | 2022-06-08 11:05 | PC.NURSE ---
0900 in pt room giving meds when pt requested to see Dr. Veag and is wondering why he has to stay another day. MD made aware and came to speak with patient about an hour later. Pt reports his bed is not comfortable, he misses his home and , and he can take the medication we are giving here at home. MD ordered EKG so that was completed before pt left AMA.
--- NOTE | 2022-06-08 11:30 | PM.DS ---
DS: Providers Provider Date of Service: 06/08/22 Date of admission: 06/07/22 12:41 Primary care physician: Abundio Lizarraga MD Consults: 06/07/22 12:36 Consult to Nephrology Routine Consulting Provider: Greg Manriquez Reason for consultation: DOUGIE, leg edema Has provider been notified: No DS: Diagnosis Discharge Diagnosis (1) DOUGIE (acute kidney injury): Status: Resolved (2) Pedal edema: Status: Inactive (3) Eczema: Status: Inactive (4) Diabetes: Status: Inactive (5) Diabetes: Status: Inactive (6) HTN (hypertension): Status: Inactive (7) Acquired hypothyroidism: Status: Inactive DS: Summary Hospital Course Hospital Course: Patient decided to leave against medial advise, kidney failure improved, yet HR very high ECG show sinus tach was going to look into it some more and possibly make med asjustment. He was alert, oriented to self place and teime and understood the circumstances of admission and further understand leaving could jeorpedized his health and possibly lead to his , he proceeded to signs against advise, was advised to see pCP kaity. He didn't wait for instruction to be given. Instructed to hold lisinopril Time Spent with Patient Time attestation: Total time spent providing and/or coordinating discharge services: Discharge coordination time: Less than 30 minutes Quality: Safe Use of Opioids Does Pt have an Active Cancer Diagnosis on the Problem List?: No Quality: Stroke Does the patient have a stroke diagnosis?: No Physical Exam Vital Signs: Vital Signs: Last Vital Signs Temp 97.2 F 06/08/22 08:00 Pulse 126 H 06/08/22 08:00 Resp 18 06/08/22 08:00 BP 140/63 H 06/08/22 08:00 Pulse Ox 99 06/08/22 08:00 O2 Del Method 06/08/22 08:00 BMI result Body Mass Index 35.2 DS: Data Data Completed and Pending Labs on day of discharge: Laboratory Results - last 24 hr 06/07/22 06/07/22 06/07/22 11:05 13:32 13:43 Sodium Potassium Chloride Carbon Dioxide Anion Gap BUN Creatinine Estim Creat Clear Calc Estimated GFR POC Glucose 190 H Random Glucose Lactic Acid F/U @ 2Hr 3.1 H* Lactic Acid F/U @ 4Hr Calcium Urine Color Yellow Urine Appearance Clear Urine pH 6.5 Ur Specific [place] >= 1.030 H Urine Protein Trace Urine Glucose (UA) >=1000 H Urine Ketones Negative Urine Blood Negative Urine Nitrite Negative Ur Leukocyte Esterase Negative Urine RBC 3-5 H Urine WBC 0-5 Ur Squamous Epith Cells 0-2 Urine Bacteria None Seen Hyaline Casts 0-2 06/07/22 06/07/22 06/07/22 14:36 15:51 19:47 Sodium Potassium Chloride Carbon Dioxide Anion Gap BUN Creatinine Estim Creat Clear Calc Estimated GFR POC Glucose 235 H 270 H Random Glucose Lactic Acid F/U @ 2Hr Lactic Acid F/U @ 4Hr 2.7 H* Calcium Urine Color Urine Appearance Urine pH Ur Specific [place] Urine Protein Urine Glucose (UA) Urine Ketones Urine Blood Urine Nitrite Ur Leukocyte Esterase Urine RBC Urine WBC Ur Squamous Epith Cells Urine Bacteria Hyaline Casts 06/08/22 06/08/22 07:28 07:54 Sodium 140 Potassium 4.8 Chloride 105 Carbon Dioxide 19 L Anion Gap 21 H BUN 21 H Creatinine 1.40 Estim Creat Clear Calc 68.2 Estimated GFR 51 POC Glucose 210 H Random Glucose 242 H Lactic Acid F/U @ 2Hr Lactic Acid F/U @ 4Hr Calcium 8.8 Urine Color Urine Appearance Urine pH Ur Specific [place] Urine Protein Urine Glucose (UA) Urine Ketones Urine Blood Urine Nitrite Ur Leukocyte Esterase Urine RBC Urine WBC Ur Squamous Epith Cells Urine Bacteria Hyaline Casts Preliminary micro results at discharge 06/07/22 08:54 Blood Culture - Preliminary Blood - Venous No growth after 24 hours. 06/07/22 08:42 Blood Culture - Preliminary Blood - Venous No growth after 24 hours. Discharge Plan Discharge Anticipated Discharge Date/Time: 06/08/22 11:26 Patient Disposition: Left Against Medical Advice Discharge Diagnosis: DOUGIE Referrals: Abundio Lizarraga MD [Primary Care Provider] - 1 Week Discharge Medications: No Action furosemide 40 mg tablet 1 tab PO DAILY omeprazole 20 mg capsule,delayed release(DR/EC) 1 cap PO DAILY@0630 hydroxyzine HCl 10 mg tablet 1 tab PO Q6-8H PRN (Reason: Itching) Rx Instructions: may double the dose before bedtime ascorbic acid (vitamin C) [Vitamin C] 500 mg Tablet 500 mg PO DAILY ferrous sulfate [Iron (ferrous sulfate)] 325 mg (65 mg iron) Tablet 325 mg PO DAILY levothyroxine 100 mcg tablet 100 mcg PO DAILY@0600 metformin 1,000 mg tablet 1,000 mg PO BID gabapentin 600 mg tablet 600 mg PO BID tramadol 50 mg tablet 100 mg PO BEDTIME celecoxib 200 mg capsule 200 mg PO DAILY latanoprost 0.005 % drops 1 drp ophthalmic-Right BEDTIME rosuvastatin 20 mg tablet 20 mg PO BEDTIME lisinopril 40 mg tablet 40 mg PO DAILY Farxiga 10 mg tablet 10 mg PO DAILY hydrocortisone 2.5 % cream 1 appl topical BID PRN (Reason: skin irritation) Qty: 30 1RF Discharge Orders: Discharge Order (Routine); Ordered 06/08/22 Ordered By: Sourav Vega Care Plan Goals: Left AMA Health Concerns: Left AMA Plan of Treatment: Left AMA Advised to go see PCP as soon as possible Assessment: Left AMA Discharge Date/Time: 06/08/22 11:15
--- NOTE | 2022-06-09 11:18 | CONS_ITS ---
DATE OF SERVICE: 06/08/2022 HISTORY OF PRESENT ILLNESS: This is a 62-year-old patient who has a history of diabetes mellitus and hypertension, who presented to the hospital with lower extremity edema and was noted to have elevated serum creatinine. The patient denies any chest pain or shortness of breath. There is no report of nausea, vomiting, or diarrhea. He had a chest x-ray, which did not show any evidence for congestive heart failure. Review of his vital signs did show hypotensive episode with systolic blood pressure down to the 80s. PAST MEDICAL HISTORY: Remarkable for diabetes mellitus, hypertension, eczema, hypothyroidism. MEDICATIONS: Outpatient included tramadol, furosemide, rosuvastatin, metformin, lisinopril, gabapentin, dapagliflozin, celecoxib. ALLERGIES: HE IS NOT ALLERGIC TO MEDICATIONS. SOCIAL HISTORY: He does not smoke currently. FAMILY HISTORY: Negative for kidney disease. REVIEW OF SYSTEMS: 10-point review of system negative except for pertinent in History Of Present Illness. PHYSICAL EXAMINATION: VITAL SIGNS: Blood pressure 140/63, heart rate 126, respiratory rate 18, temperature 97.2. CONSTITUTIONAL: Looks his stated age. No acute distress. NEUROLOGIC: Alert, awake. HEENT: Head is atraumatic and normocephalic. NECK: Supple. LUNGS: Good air entry bilaterally. CARDIOVASCULAR: S1, S2. No rub. ABDOMEN: Soft, obese, nontender. EXTREMITIES: Peripheral edema. LABORATORY DATA: Showed white count 8.3, hemoglobin 11.4, platelet count is 221. Sodium 140, potassium 4.8, chloride 105, CO2 of 19, BUN 21, and creatinine 1.4. Creatinine yesterday was 1.96. Lactic acid 2.7. IMPRESSION: Acute kidney injury. This patient with acute kidney injury due to compromised kidney perfusion and tubular stress. There is no reason to suspect an acute interstitial nephritis or glomerulonephritis at this juncture. He was hypotensive, which probably led to compromise kidney perfusion and kidney. I would discontinue IV fluid and avoid use of [place]-2 inhibitor, which can disrupt the kidney when combined with the MERA inhibitor and loop diuretics. We will continue to follow closely his kidney function. Thank you for allowing me to participate in the care of the patient. MD NICO Powers/MODLynda / [id number]
== END 2022-06-08 11:15 | disposition left against medical advice (07) | DRG 683 ==
LOC: HO.ED 11:46 → HO.EDOVER 12:47 → HO.S3 14:41
PROVIDERS: Physician Assistant; Admitting Provider Internal Medicine; Emergency Provider Emergency Medicine; PCP Internal Medicine; Visit Provider Internal Medicine
DX: N17.9 Acute kidney failure, unspecified (principal); E87.20 Acidosis, unspecified; E78.5 Hyperlipidemia, unspecified; I95.9 Hypotension, unspecified; E11.40 Type 2 diabetes mellitus with diabetic neuropathy, unspecified; R00.0 Tachycardia, unspecified; R60.0 Localized edema; N04.9 Nephrotic syndrome with unspecified morphologic changes; E03.9 Hypothyroidism, unspecified; L30.9 Dermatitis, unspecified; Z20.822 Contact with and (suspected) exposure to COVID-19; Z87.891 Personal history of nicotine dependence; Z79.84 Long term (current) use of oral hypoglycemic drugs; Z79.890 Hormone replacement therapy; Z79.899 Other long term (current) drug therapy
CPT/HCPCS: 36415; 71045; 80048; 80076; 81001; 82947; 83605; 83880; 85025; 85610; 85652; 86140; 87040; 87635; 93005; 93970; 99285; J0696

== ENCOUNTER 2022-06-19 11:27 | Outpatient (REF) | payer MEDICARE, MEDICAID, SELFPAY ==
[2022-06-19 11:31] LABS: MANUAL DIFF FLAG NO
[2022-06-19 12:12] LABS: Basophils Absolute Auto 0.1 X10*3/uL (0.0-0.2); Basophils Percent Auto 0.6 % (0-2); Eosinophils Absolute Auto 1.4 X10*3/uL (0.0-0.4); Eosinophils Percent Auto 12.3 % (0-4); Hematocrit 36.5 % (42.0-52.0); Hemoglobin 11.7 g/dl (14.0-18.0); Imm Gran Abs Auto 0.08 X10*3/uL (0.00-0.03); Imm Gran Pct Auto 0.7 % (0.0-0.4); Lymphocytes Absolute Auto 1.8 X10*3/uL (1.2-4.9); Lymphocytes Percent Auto 15.4 % (20-40); Mean Corpuscular HGB Conc 32.1 g/dl (31.0-36.0); Mean Corpuscular Hemoglobin 28.7 pg (27.0-33.0); Mean Corpuscular Volume 89.5 fL (80.0-98.0); Mean Platelet Volume 9.5 fL (9.4-12.4); Monocytes Absolute Auto 0.8 X10*3/uL (0.1-1.2); Monocytes Percent Auto 6.5 % (2-11); Neutrophils Absolute Auto 7.5 x10*3/uL (2.0-8.3); Neutrophils Percent Auto 64.5 % (45-73); Platelet Count 392 X10*3/uL (160-400); Red Blood Count 4.08 X10*6/uL (4.60-5.80); Red Cell Distribution Width 14.3 % (11.0-16.0); White Blood Count 11.6 X10*3/uL (4.8-10.8)
[2022-06-19 12:32] LABS: Blood Urea Nitrogen 20 mg/dL (9-16); Estimated Glomerular Filt Rate > 60
== END 2022-06-19 11:28 | disposition home or self-care (01) ==
LOC: HO.LNP 11:27
PROVIDERS: Visit Provider Internal Medicine
DX: D64.89 Other specified anemias (principal)
CPT/HCPCS: 82565; 84520; 85025

== ENCOUNTER 2022-09-19 11:41 | Outpatient (REF) | payer MEDICARE, MEDICAID, SELFPAY ==
[2022-09-19 12:41] LABS: Estimated Average Glucose 292 mg/dL; Hemoglobin A1c % 11.8 %
[2022-09-19 12:48] LABS: Alanine Aminotransferase 40 U/L (0-40); Albumin Level 3.8 g/dL (3.5-5.0); Alkaline Phosphatase 78 U/L (39-117); Aspartate Amino Transferase 58 U/L (5-37); Bilirubin Direct < 0.2 mg/dL (0.0-0.5); Bilirubin Total 0.3 mg/dL (0.0-1.0); Cholesterol 107 mg/dL; HDL Cholesterol 27 mg/dL; LDL Cholesterol Calculated 22 mg/dl; Total Protein 6.4 g/dL (6.5-8.0); Triglycerides 292 mg/dL
[2022-09-19 15:44] LABS: Reflex LDLD? No
== END 2022-09-19 11:42 | disposition home or self-care (01) ==
LOC: HO.LNP 11:41
PROVIDERS: Visit Provider Internal Medicine
DX: E11.40 Type 2 diabetes mellitus with diabetic neuropathy, unspecified (principal); E78.00 Pure hypercholesterolemia, unspecified
CPT/HCPCS: 80061; 80076; 82043; 83036

== ENCOUNTER 2022-10-02 11:40 | Outpatient (REF) | payer MEDICARE, MEDICAID, SELFPAY ==
[2022-10-02 13:06] LABS: Creatinine Urine 57.05 mg/dL; Microalbum/Creatinine Ratio Ur 12.2 ug/mg cr
== END 2022-10-02 11:41 | disposition home or self-care (01) ==
LOC: HO.LNP 11:40
PROVIDERS: Visit Provider Internal Medicine
DX: E11.40 Type 2 diabetes mellitus with diabetic neuropathy, unspecified (principal)
CPT/HCPCS: 82043

== ENCOUNTER 2022-11-26 07:37 | Outpatient (REF) | payer MEDICARE, MEDICAID, SELFPAY ==
--- NOTE | ~2022-11-26 | XR_ITS ---
EXAMINATION: XR CHEST CLINICAL INFORMATION: Cough and shortness of breath COMPARISON: Previous chest x-ray most recent May 2022 TECHNIQUE: 2 views of the chest were obtained. FINDINGS: The cardiac and mediastinal contours are stable. The lungs are clear. No pleural effusion or pneumothorax. Degenerative changes of the spine. Right shoulder replacement. Postsurgical changes to the lower cervical spine. XR/XR chest 2V IMPRESSION: No evidence for acute disease in the chest.
== END 2022-11-26 07:38 | disposition home or self-care (01) ==
LOC: HO.XRAY 07:37
PROVIDERS: PCP Internal Medicine; Visit Provider Internal Medicine
DX: E11.40 Type 2 diabetes mellitus with diabetic neuropathy, unspecified (principal)
CPT/HCPCS: 71046

== ENCOUNTER → 2023-03-12 07:44 | Outpatient (REF) | payer MEDICARE, MEDICAID, SELFPAY ==
--- NOTE | 2023-03-12 07:53 | CA_ITS ---
Transthoracic Echocardiogram Patient (Last, First, Middle): Sourav Corbett, Gender: Male Date of : 1960 Age: 62 Procedure Date: 03/12/2023 Procedure Type: Transthoracic Echocardiogram Location: OP Height: 177.8 cm Weight: 104.78 kg BSA: 2.22 m2 Heart Rate: 83 bpm BP: 115 / 70 mmHg Car Hiker: CHRISTOS Referring MD: Abundio Lizarraga MD Symptoms: E11.40 TYPE 2 DM W NEUROPATHYU Study Quality: Fair ECG Rhythm: Sinus Conclusions: - The left ventricular systolic function is low normal. The calculated ejection fraction is 54% by biplane method. - No obvious valvular pathology seen on this study. Findings Left Ventricle Normal left ventricular cavity size. There is normal left ventricular wall thickness. The left ventricular systolic function is low normal. The calculated ejection fraction is 54% by biplane method. There is no evidence of regional wall motion abnormalities. Diastolic function is normal for age. Right Ventricle Normal right ventricular cavity size and systolic function. Atria Both atria are normal in size. Aortic Valve There is a normal trileaflet aortic valve. There is no aortic valve stenosis. There is no aortic valve regurgitation. Mitral Valve The mitral valve appears normal. There is no mitral valve regurgitation. There is no mitral valve stenosis. Pulmonic Valve The pulmonic valve is likely normal. Tricuspid Valve There is trace tricuspid valve regurgitation. There is no evidence of pulmonary hypertension. Great Vessels The asc aorta is normal in size. Venous The inferior vena cava is normal in size and collapses less than 50% with inspiration. Pericardium/Pleural There is no evidence of pericardial effusion. Prior Study Comparison No prior study available for comparison. Recommendations, Care & Conclusions No obvious valvular pathology seen on this study. Measurements 2D Linear Measurements IVSd: 0.80 0.6-0.9/0.6-1.0 cm LVIDd: 4.60 3.9-5.3/4.2-5.9 cm LVIDd Index: 2.07 2.4-3.2/2.2-3.1 cm/m2 LVIDs: 2.90 2.0-3.6 cm LVPWd: 0.80 0.7-1.1 cm LA Diam: 2.90 2.7-3.8/3.0-4.0 cm LAIDs Index: 1.31 1.5-2.3 cm/m2 LV Mass: 146.63 67-162/88-224 g LV Mass Index: 66.05 43-95/49-115 g/m2 LVOT Diam: 1.80 3.0+(-)1.3 cm 2D Systolic Function EF 4C: 54.70 >55% EF 2C: 56.30 >55% EF BiP: 54.40 >55% Mitral Valve MV Pk E: 0.64 MV PK A: 0.88 MV Decel Time: 163.00 E/A: 0.70 E'Lateral: 7.29 E'Medial: 7.83 E/E' Med: 8.10 E/E' Lat: 8.80 PHT: 48.00 MVA PHT: 4.58 Decel [place]: 3.91 Aortic Valve AoV Pk Gopal: 1.43 AoV Mn Gopal: 1.00 AoV VTI: 0.24 AoV Pk Grad: 8.00 Aov Mn Grad: 5.00 SUDEEP Cont.VTI: 1.94 LVOT LVOT Pk Gopal: 1.17 LVOT Mn Gopal: 0.71 LVOT VTI: 0.18 LVOT Pk Grad: 5.00 LVOT Mn Grad: 2.00 LVOT Diam: 1.80 LVOT Area: 2.54 Diastolic Function MV Pk E: 0.64 MV Pk A: 0.88 E/A: 0.70 E'Medial: 7.83 E/E' Med: 8.10 E' Laterial: 7.29 E/E' Lat: 8.80 Right Ventricle TAPSE (mm): 19.50 TVS' Gopal: 13.30 Tricuspid Valve TR Pk Gopal: 1.24 TR Pk Grad: 6.00 RA Press: 3.00 RVSP: 9.00 Great Vessels Aorta Sinus of Valsalva: 3.30 2.0-3.5 cm Ao Asc: 3.00 2.1-3.4 cm Pulmonary Valve PV Pk Gopal: 1.52 Peak PV Grad: 9.00 Updated in Other Vendor System with Status of Final Calderon Chen MD electronically signed on 03/12/2023 4:01:13 PM with status of Final
== END ==
LOC: HO.CARD 07:44
PROVIDERS: PCP Internal Medicine; Visit Provider Internal Medicine
DX: R06.01 Orthopnea (principal)
CPT/HCPCS: 93306

== ENCOUNTER → 2023-03-12 07:53 | Outpatient (BNV) | payer MEDICARE, MEDICAID, SELFPAY | PROVIDERS: PCP Internal Medicine; Visit Provider Internal Medicine | DX: E11.40 Type 2 diabetes mellitus with diabetic neuropathy, unspecified (principal) | CPT/HCPCS: 93306 ==

== ENCOUNTER 2023-03-16 11:01 | Outpatient (REF) | payer MEDICARE, MEDICAID, SELFPAY ==
[2023-03-16 11:09] LABS: MANUAL DIFF FLAG NO
[2023-03-16 11:48] LABS: Basophils Absolute Auto 0.1 X10*3/uL (0.0-0.2); Basophils Percent Auto 0.6 % (0-2); Eosinophils Absolute Auto 0.5 X10*3/uL (0.0-0.4); Eosinophils Percent Auto 5.3 % (0-4); Hematocrit 39.8 % (42.0-52.0); Hemoglobin 12.4 g/dl (14.0-18.0); Imm Gran Abs Auto 0.04 X10*3/uL (0.00-0.03); Imm Gran Pct Auto 0.4 % (0.0-0.4); Lymphocytes Percent Auto 22.4 % (20-40); Mean Corpuscular HGB Conc 31.2 g/dl (31.0-36.0); Mean Corpuscular Hemoglobin 27.1 pg (27.0-33.0); Mean Corpuscular Volume 87.1 fL (80.0-98.0); Mean Platelet Volume 10.3 fL (9.4-12.4); Monocytes Absolute Auto 0.7 X10*3/uL (0.1-1.2); Monocytes Percent Auto 7.7 % (2-11); Neutrophils Absolute Auto 5.7 x10*3/uL (2.0-8.3); Neutrophils Percent Auto 63.6 % (45-73); Platelet Count 308 X10*3/uL (160-400); Red Blood Count 4.57 X10*6/uL (4.60-5.80); Red Cell Distribution Width 13.9 % (11.0-16.0); White Blood Count 8.9 X10*3/uL (4.8-10.8)
[2023-03-16 11:51] LABS: Appearance Urine Clear; Color Urine Yellow; Glucose Urine UA >=1000 mg/dL (Negative); Leukocyte Esterase Urine Negative (Negative); Nitrite Urine Negative (Negative); PH 5.5 (5.0-9.0); Specific Gravity - Urine >= 1.030 (1.005-1.025); UMIC TRIGGER UACC YES; Urine Blood Negative (Negative); Urine Ketones Trace mg/dL (Negative); Urine Protein Trace mg/dL (Neg-Trace)
[2023-03-16 11:58] LABS: Alanine Aminotransferase 32 U/L (0-40); Albumin Level 4.1 g/dL (3.5-5.0); Alkaline Phosphatase 67 U/L (39-117); Anion Gap 17 (12-20); Aspartate Amino Transferase 41 U/L (5-37); Bilirubin Total 0.4 mg/dL (0.0-1.0); Blood Urea Nitrogen 23 mg/dL (9-16); Calcium 10.1 mg/dL (8.4-10.2); Carbon Dioxide 23 mmol/L (22-29); Chloride 105 mmol/L (96-108); Cholesterol 99 mg/dL; Estimated Glomerular Filt Rate > 60; Glucose Fasting 214 mg/dL (60-99); HDL Cholesterol 32 mg/dL; Iron 108 mcg/dL (45-160); LDL Cholesterol Calculated 28 mg/dl; Percent Iron Saturation 30 % (15-50); Potassium 4.5 mmol/L (3.3-5.1); Sodium 140 mmol/L (135-145); Total Iron Binding Capacity 358 mcg/dL (228-428); Total Protein 7.2 g/dL (6.5-8.0); Triglycerides 199 mg/dL; Unsaturated Iron Binding 250 ug/dL
[2023-03-16 12:04] LABS: Bacteria Urine None Seen (None Seen); Estimated Average Glucose 203 mg/dL; Hemoglobin A1c % 8.7 %; WBC Urine 0-5 /HPF (0-5)
[2023-03-16 12:15] LABS: PSA,Total (Free>4and<10) 0.23 ng/mL (0.00-4.00)
[2023-03-16 12:16] LABS: TSH reflex Free T4 0.49 uIU/mL (0.32-4.0)
[2023-03-16 12:47] LABS: Microalbum/Creatinine Ratio Ur 8.5 ug/mg cr
== END 2023-03-16 11:02 | disposition home or self-care (01) ==
LOC: HO.LNP 11:01
PROVIDERS: Visit Provider Internal Medicine
DX: D50.9 Iron deficiency anemia, unspecified (principal); I10 Essential (primary) hypertension; E03.9 Hypothyroidism, unspecified; E11.40 Type 2 diabetes mellitus with diabetic neuropathy, unspecified; E78.00 Pure hypercholesterolemia, unspecified; Z12.5 Encounter for screening for malignant neoplasm of prostate
CPT/HCPCS: 80053; 80061; 81001; 82043; 83036; 83540; 84153; 84443; 85025

== ENCOUNTER 2023-04-15 09:22 | Outpatient (REF) | payer MEDICARE, MEDICAID, SELFPAY ==
--- NOTE | ~2023-04-15 | CT_ITS ---
EXAMINATION: CT CHEST WITHOUT CONTRAST CLINICAL INFORMATION: Lung nodule. COMPARISON: CT angiogram chest 04/01/2022: 5.5 mm mean diameter right upper lobe pulmonary nodule. If the patient is low risk for primary pulmonary malignancy, no follow-up is required. If high risk, suggest optional chest CT follow-up in 12 months time for reassessment Fleischner Society guidelines 2017. TECHNIQUE: Multidetector volumetric CT imaging of the chest was done. Axial MIP volume rendering provided. Sagittal and coronal reformatted images were obtained. This CT examination was performed using dose optimization techniques as appropriate, variously including the following: *Automated exposure control *Adjustment of mA and/or kV according to patient size (this includes techniques or standardized protocols for targeted exams where dose is matched to indication/reason for exam; i.e. extremities or head) *Use of iterative reconstruction technique DLP: 273 mGy-cm. FINDINGS: LUNGS: Again seen are some scattered pulmonary nodules unchanged from prior. The largest measures 5 mm in the left upper lobe (5:129 compare prior 9:107). Whitten images of all nodules have been saved. Some scattered calcified granulomas are unchanged. No new or worrisome lung nodule is seen. Some minimal subpleural reticulation is again noted and unchanged. MEDIASTINUM: The left lobe of the thyroid appears to be absent. No mediastinal or hilar lymphadenopathy is seen. Heart size normal. CORONARY ARTERY CALCIFICATION: Present. PLEURA: There is no pleural effusion. No pleural mass or thickening. AXILLA: No lymphadenopathy. UPPER ABDOMEN: Liver attenuation is less than the spleen suggesting hepatic steatosis. The adrenal glands are normal. OSSEOUS STRUCTURES: Mild degenerative changes are present in the spine. ACDF hardware is partially visualized in the cervical spine. CT/CT chest wo IV con IMPRESSION: 1. Pulmonary nodules are stable when compared to study a year ago. The largest measures 5 mm. No new or worrisome lung nodules are seen. 2. Incidentally noted hepatic steatosis. Fleischner guidelines were followed. No additional followup should be necessary.
== END 2023-04-15 09:23 | disposition home or self-care (01) ==
LOC: HO.CT 09:22
PROVIDERS: PCP Internal Medicine; Visit Provider Internal Medicine
DX: R91.1 Solitary pulmonary nodule (principal)
CPT/HCPCS: 71250

== ENCOUNTER 2023-04-16 11:00 | Outpatient (REF) | payer MEDICARE, MEDICAID, SELFPAY ==
[2023-04-16 13:40] LABS: Appearance Urine Clear; Color Urine Yellow; Glucose Urine UA >=1000 mg/dL (Negative); Leukocyte Esterase Urine Negative (Negative); Nitrite Urine Negative (Negative); Specific Gravity - Urine >= 1.030 (1.005-1.025); UMIC TRIGGER UACC YES; Urine Blood Negative (Negative); Urine Ketones Negative (Negative); Urine Protein Negative (Neg-Trace)
[2023-04-16 13:49] LABS: Bacteria Urine None Seen (None Seen); Hyaline Casts Urine 0-2 /LPF (0-2); RBC Urine 0-2 /HPF (0-2); Squamous Epithelial Cell Urine 0-2 /HPF (0-2); WBC Urine 0-5 /HPF (0-5)
== END 2023-04-16 11:01 | disposition home or self-care (01) ==
LOC: HO.LNP 11:00
PROVIDERS: Visit Provider Internal Medicine
DX: R31.9 Hematuria, unspecified (principal)
CPT/HCPCS: 81001

== ENCOUNTER 2023-10-01 11:10 | Outpatient (REF) | payer MEDICARE, MEDICAID, SELFPAY ==
[2023-10-01 11:44] LABS: Estimated Average Glucose 206 mg/dL; Hemoglobin A1c % 8.8 % (<6.0)
[2023-10-01 11:49] LABS: Alanine Aminotransferase 29 U/L (0-40); Albumin Level 4.1 g/dL (3.5-5.0); Alkaline Phosphatase 68 U/L (39-117); Aspartate Amino Transferase 32 U/L (5-37); Bilirubin Direct 0.1 mg/dL (0.0-0.5); Bilirubin Total 0.3 mg/dL (0.0-1.0); Cholesterol 129 mg/dL (<200); Glucose Fasting 174 mg/dL (60-99); HDL Cholesterol 34 mg/dL (>40); LDL Cholesterol Calculated 42 mg/dL (<100); Total Protein 7.2 g/dL (6.5-8.0); Triglycerides 266 mg/dL (<150)
[2023-10-01 13:48] LABS: Reflex LDLD? No
== END 2023-10-01 11:11 | disposition home or self-care (01) ==
LOC: HO.LNP 11:10
PROVIDERS: Visit Provider Internal Medicine
DX: E11.40 Type 2 diabetes mellitus with diabetic neuropathy, unspecified (principal); E78.00 Pure hypercholesterolemia, unspecified
CPT/HCPCS: 80061; 80076; 82947; 83036

== ENCOUNTER 2024-03-18 10:35 | Outpatient (REF) | payer MEDICARE, MEDICAID, SELFPAY ==
[2024-03-18 10:40] LABS: MANUAL DIFF FLAG NO
[2024-03-18 10:57] LABS: Basophils Absolute Auto 0.1 X10*3/uL (0.0-0.2); Basophils Percent Auto 0.5 % (0-2); Eosinophils Absolute Auto 0.5 X10*3/uL (0.0-0.4); Eosinophils Percent Auto 4.6 % (0-4); Hematocrit 37.6 % (42.0-52.0); Hemoglobin 11.7 g/dl (14.0-18.0); Imm Gran Abs Auto 0.04 X10*3/uL (0.00-0.03); Imm Gran Pct Auto 0.4 % (0.0-0.4); Lymphocytes Absolute Auto 1.6 X10*3/uL (1.2-4.9); Lymphocytes Percent Auto 15.7 % (20-40); Mean Corpuscular HGB Conc 31.1 g/dl (31.0-36.0); Mean Corpuscular Hemoglobin 25.3 pg (27.0-33.0); Mean Corpuscular Volume 81.4 fL (80.0-98.0); Mean Platelet Volume 10.4 fL (9.4-12.4); Monocytes Absolute Auto 0.6 X10*3/uL (0.1-1.2); Monocytes Percent Auto 6.1 % (2-11); Neutrophils Absolute Auto 7.2 x10*3/uL (2.0-8.3); Neutrophils Percent Auto 72.7 % (45-73); Platelet Count 265 X10*3/uL (160-400); Red Blood Count 4.62 X10*6/uL (4.60-5.80); Red Cell Distribution Width 15.2 % (11.0-16.0); White Blood Count 9.9 X10*3/uL (4.8-10.8)
[2024-03-18 10:59] LABS: Appearance Urine Clear; Color Urine Yellow; Glucose Urine UA >=1000 mg/dL (Negative); Leukocyte Esterase Urine Negative (Negative); Nitrite Urine Negative (Negative); PH 7.5 (5.0-9.0); Specific Gravity - Urine >= 1.030 (1.005-1.025); UMIC TRIGGER UACC YES; Urine Blood Negative (Negative); Urine Ketones Trace mg/dL (Negative); Urine Protein 30 (1+) mg/dL (Neg-Trace)
[2024-03-18 11:02] LABS: Bacteria Urine None Seen (None Seen); Hyaline Casts Urine 0-2 /LPF (0-2); RBC Urine 0-2 /HPF (0-2); Squamous Epithelial Cell Urine 0-2 /HPF (0-2); WBC Urine 0-5 /HPF (0-5)
[2024-03-18 11:14] LABS: Alanine Aminotransferase 20 U/L (0-40); Albumin Level 4.2 g/dL (3.5-5.0); Alkaline Phosphatase 76 U/L (39-117); Anion Gap 17 (12-20); Aspartate Amino Transferase 24 U/L (5-37); Bilirubin Total 0.4 mg/dL (0.0-1.0); Blood Urea Nitrogen 24 mg/dL (9-16); Calcium 10.1 mg/dL (8.4-10.2); Carbon Dioxide 22 mmol/L (22-29); Chloride 109 mmol/L (96-108); Cholesterol 128 mg/dL (<200); Estimated Average Glucose 217 mg/dL; Estimated Glomerular Filt Rate > 60; Glucose Random 160 mg/dL (60-115); HDL Cholesterol 35 mg/dL (>40); Hemoglobin A1c % 9.2 % (<6.0); LDL Cholesterol Calculated 37 mg/dL (<100); Potassium 4.9 mmol/L (3.3-5.1); Sodium 143 mmol/L (135-145); Total Protein 7.3 g/dL (6.5-8.0); Triglycerides 280 mg/dL (<150)
[2024-03-18 11:38] LABS: PSA,Total (Free>4and<10) 0.26 ng/mL (0.00-4.00)
[2024-03-18 12:13] LABS: Creatinine Urine 102.19 mg/dL; Microalbum/Creatinine Ratio Ur 31.3 ug/mg cr (<30)
== END 2024-03-18 10:36 | disposition home or self-care (01) ==
LOC: HO.LNP 10:35
PROVIDERS: Visit Provider Internal Medicine
DX: D50.9 Iron deficiency anemia, unspecified (principal); E11.40 Type 2 diabetes mellitus with diabetic neuropathy, unspecified; E78.00 Pure hypercholesterolemia, unspecified; Z12.5 Encounter for screening for malignant neoplasm of prostate
CPT/HCPCS: 80053; 80061; 81001; 82043; 82570; 83036; 84153; 85025

== ENCOUNTER 2024-11-24 10:30 | Outpatient (REF) | payer MEDICARE, SELFPAY ==
[2024-11-24 10:53] LABS: Alanine Aminotransferase 18 U/L (0-40); Albumin Level 3.9 g/dL (3.5-5.0); Alkaline Phosphatase 78 U/L (39-117); Aspartate Amino Transferase 29 U/L (5-37); Bilirubin Direct < 0.2 mg/dL (0.0-0.5); Bilirubin Total 0.2 mg/dL (0.0-1.0); Cholesterol 114 mg/dL (<200); Glucose Fasting 177 mg/dL (60-99); HDL Cholesterol 31 mg/dL (>40); LDL Cholesterol Calculated 45 mg/dL (<100); Triglycerides 193 mg/dL (<150)
[2024-11-24 11:18] LABS: Estimated Average Glucose 217 mg/dL; Hemoglobin A1C 210.9599 umol/L; Hemoglobin A1c % 9.2 % (<6.0); Total Hemoglobin (HGBA1C) 2757.2242 umol/L
--- OUTSIDE RECORDS SUMMARY | 2024-11-24 11:38 | XMS_ITS ---
Author Organization Abundio Lizarraga MD Address [address] [place] [phone] Care Team Providers Care Disbursement Clerk Name Role Phone Abundio Lizarraga Primary Care Provider REASON FOR VISIT Excema Medications Medication SIG (Take, Route, Fr equency, Duration) Notes Start Date End Date Status hydrOXYzine HCl 10 MG as directed Orally Once a day for 30 days Active Encounters Encounter Location Date Provider Diagnosis Abundio Lizarraga MD [address] [place] [phone] 11/01/2024 Abundio Lizarraga Chronic eczema L30.9 Assessments Encounter Date Diagnosis (ICD Code) Assessment Notes Treatment Notes Treatment Clinical Notes Section Notes 11/01/2024 Chronic eczema (ICD-10 - L30.9) Plan Of Treatment Medication Medication Name Sig Start Date Stop Date Notes hydrOXYzine HCl 10 MG as directed Orally Once a day for 30 days Next Appt Details Provider Name:Abundio tinoco, 12/05/2024 11:15:00 AM, [address], Suite [facility], [place], [place], [phone], Provider Name:Abundio Andujar ier, 05/26/2025 07:30:00 AM, [address], [address], [place], [phone], Provider Name:Abundio Andujar ier, 06/09/2025 09:30:00 AM, [address], [address], [place], [place], [phone], Progress Notes * Kary CORBETToreDOB: 0 (64 yo M)Acc No.[id number]:11/01/2024 Patient:?Sourav CORBETT :1960???Age:64 Y???Sex:Male Address:[address] [place] [id number] * Refills? Refill hydrOXYzine HCl Tablet, 10 MG, Orally, 30, as directed, Once a day, 30 days, Refills=1 * true * Date:? Generated for Richelle danielle/Barb/eTransmitting on:?11/24/2024 11:37 AM EDT
--- OUTSIDE RECORDS SUMMARY | 2024-11-24 11:38 | XMS_ITS | Clinical Summary ---
Author Organization [facility] Address [address] [place] [address] Phone Care Team Providers Care Engineering Technologist Name Role Phone Abundio Lizarraga MD Primary Care Provider Medications traMADol (ULTRAM) 50 MG tablet TAKE 1 TABLET BY MOUTH EVERY MORNING AND 2 TABLETS AT BEDTIME NEEDED 2 Active tacrolimus (PROTOPIC) 0.1 % ointment APPLY EVERY MORNING AND EVERY EVENING TO AREAS OF ECZEMA UP TO 6 WEEKS DURING OFF WEEKS FTOM TOPICAL STEROIDS 2 Active permethrin (ELIMITE) 5 % cream APPLY FROM NECK DOWN LET SIT OVERNIGHT WASH OFF REPEAT IN 1 WEEK 2 Active omeprazole (PriLOSEC) [address] capsule Take by mouth 1 (one) time each day 2 Active metFORMIN (GLUCOPHAGE) 1000 MG tablet TAKE 1 TABLET BY MOUTH TWICE DAILY WITH A MEAL 2 Active levothyroxine (SYNTHROID, LEVOTHROID) 100 MCG tablet Take 100 mcg by mouth 1 (one) time each day 2 Active hydrOXYzine (ATARAX) 10 MG tablet TAKE 1 TABLET BY MOUTH EVERY 6 TO 8 HOURS NEEDED FOR ITCH MAY DOUBLE DOSE BEFORE BEDTIME 2 Active gabapentin (NEURONTIN) 600 MG tablet Take 600 mg by mouth in the morning and 600 mg in the evening. 2 Active furosemide (LASIX) 40 MG tablet Take 40 mg by mouth 1 (one) time each day 2 Active Dupixent 300 MG/2ML solution pen-injector 2 Active Farxiga 10 MG tablet Take by mouth 1 (one) time each day 2 Active cetirizine (ZyrTEC) 10 MG tablet TAKE 1 TABLET BY MOUTH WITH FOOD EVERY DAY 2 Active cephalexin (KEFLEX) 500 MG capsule TAKE 1 CAPSULE BY MOUTH WITH BREAKFAST LUNCH AND DINNER FOR 1 WEEK 2 Active celecoxib (CeleBREX) 200 MG capsule Take by mouth 1 (one) time each day 2 Active Sarna lotion 2 Active Active Problems Problem Noted Date Diagnosed Date Obese class I 10/23/2022 Testicular hypofunction 08/21/2022 Stasis dermatitis 08/21/2022 Solitary pulmonary nodule 08/21/2022 Recurrent falls 08/21/2022 Pure hypercholesterolemia 08/21/2022 Psoriasis 08/21/2022 Primary insomnia 08/21/2022 Localized, primary osteoarthritis of the ankle a nd/or foot 08/21/2022 Iron deficiency anemia 08/21/2022 Impotence of organic origin 08/21/2022 Idiopathic gout 08/21/2022 Essential hypertension 08/21/2022 Diabetic peripheral neuropat hy associated with type 2 diabetes mellitus 08/21/2022 Degeneration of cervical intervertebral disc Acquired hypothyroidism 08/21/2022 Arthritis 08/21/2022 Overview (05/24/2024): Replacing diagnoses that were inactivated after the 05/24/24 Regulatory Import Cerebral palsy 08/21/2022 Cervical nerve root compression 08/21/2022 Immunizations Name Administration Dates Next Due DT 04/04/2019 Moderna SARS-COV-2 12/07/2020,11/09/2020 Pfizer SARS-COV-2 07/15/2021 Social History Tobacco Use Types Packs/Day Years Used Date Smoking Tobacco: Never Assessed Sex and Gender Information Value Date Recorded Sex Assigned at Not on file Legal Sex Male 9:41 AM EDT Gender Identity Not on file Sexual Orientation Not on file Plan of Treatment Health Maintenance Due Date Last Done Comments Pneumococcal Vaccine: Pediatrics (0 to 5 Years) and At-Risk Patients (6 to 64 Years) (1 of 2 - PCV) 1966 Colorectal Cancer Screening: Annual FOBT 2009 Colorectal Cancer Screening: Colonoscopy 2009 Colorectal Cancer Screening: Sigmoidoscopy 2009 Diabetes: Hemoglobin A1C 06/11/2022 022, 09/20/2021, 06/20/2021, Additional history exists Diabetes: Ophthalmology Exam 06/11/2022 Diabetes: Pedal Pulse Checked 06/11/2022 Diabetes: Sensory Foot Exam 06/11/2022 Diabetes: Visual Foot Exam 06/11/2022 Influenza Vaccine (Season Ended) 2025 Hepatitis B Vaccine Aged Out No longe r eligible based on patient's age to complete this topic Insurance [place] Care Teams Engineering Technologist Relationship Specialty Start Date End Date Abundio Lizarraga MD [address] [place] [address] [id number] [place], [place] PCP - General Internal Medicine 06/09/22
--- OUTSIDE RECORDS SUMMARY | 2024-11-24 11:38 | XMS_ITS ---
Author Organization Abundio Lizarraga MD Address [address] [place] [phone] Care Team Providers Care Account Support Analyst Name Role Phone Abundio Lizarraga Primary Care Provider [phone] Results Component Value Reference Range Notes Hemoglobin A1c (Not yet revi ewed by provider) Interpretation: Performing Lab:[facility], [address] [place] [phone] Notes/Report: Hemoglobin A1c % 9.2 <6.0 % Hemoglobin A1C Reference Range Adults: 4.8 - 6.0 % Non diabetic: < 6.0 % Goal: < 7.0 % Additional Action Suggested: > 8.0 % Note: Hemoglobin A1c results are invalid for patients with abnormal amounts of HbF. Blood transfusions may impact the HbA1c concentration in the patient sample. Estimated Average Glucose 217 eAG = Estimated average glucose which is %A1C expressed as average glucose, using the formula of the [id number] Average Glucose study (ADAG), Diabetes Care, Vol.31,#8, 2007 REASON FOR VISIT fasting lipids Encounters Encounter Location Date Provider Diagnosis Abundio Lizarraga MD [address] [place] [phone] 11/24/2024 Abundio Lizarraga Type 2 diabetes karan itus with diabetic neuropathy E11.40 and Pure hypercholesterolemia E78.00 Assessments Encounter Date Diagnosis (ICD Code) Assessment Notes Treatment Notes Treatment Clinical Notes Section Notes 11/24/2024 Type 2 diabetes karan itus with diabetic neuropathy (ICD-10 - E11.40) 11/24/2024 Pure hypercholesterolemia (ICD-10 - E78.00) Plan Of Treatment Pending Test Test Name Order Date Liver Panel 11/24/2024 Glucose Fasting 11/24/2024 Lipid Panel with Reflex 11/24/2024 Hemoglobin A1c 11/24/2024 Next Appt Details Provider Name:Abundio Polo Con ier, 12/05/2024 11:15:00 AM, [address] [place] [address], [address], [place], [place], [phone], Provider Name:Abundio Polo Con ier, 05/26/2025 07:30:00 AM, [address] [place] [address], [address], [place], [place], [phone], Provider Name:Abundio Polo Andujar ier, 06/09/2025 09:30:00 AM, [address] [place] [address], [address], [place], [place], [phone], Progress Notes * Kary CORBETToreDOB: 0 (64 yo M)Acc No.[id number]:11/24/2024 Progress Note Patient:?BRIANA Sourav Provider:?Abundio Lizarraga MD :1960???Age:64 Y???Sex:Male Alexy e:11/24/2024 Address:[address] [place], [place] [phone] Subjective: * Chief Complaints: * ???1. Fasting lipids. * Medical History:? Objective: * Vitals:? Assessment: * Assessment: 1.?Type 2 diabetes mellitus with diabetic neuropathy - E11.40 (Primary)???2.?Pure hypercholesterolemia - E78.00??? Plan: * Treatment: 2.?Pure hypercholesterolemia ?LAB: Liver Panel ?LAB: Glucose Fasting ?LAB: Lipid Panel with Reflex ?LAB: Hemoglobin A1c (Collection Date & Time - 11/24/2024 07:00 AM) * Procedure Codes:?49067 VENIP UNCT, ROUTINE* * * The named appointment provid er may or may not be the originator of this progress note, and it is not deemed complete until electronically signed by the appointment provider. Sign off status: Pending * Provider:?Abundio Lizarraga MD Date:?0 11/24/2024 Generated for Richelle danielle/Barb/Alirioitting on:?11/24/2024 11:37 AM EDT
--- OUTSIDE RECORDS SUMMARY | 2024-11-24 11:38 | XMS_ITS ---
Author Organization Abundio Lizarraga MD Address [address] [place] [phone] Care Team Providers Care Grout Pump Operator Name Role Phone Abundio Lizarraga Primary Care Provider REASON FOR VISIT RF Halobetasol 0.05% cream Medications Medication SIG (Take, Route, Frequency, Duration) Notes Start Date End Date Status Halobetasol Propionate 0.05 % APPLY TOPICALLY TO THE AFFECTED AREA TWICE DAILY for 150 Active Encounters Encounter Location Date Provider Diagnosis Abundio Lizarraga MD [address] [place] [address] [address] [place] [phone] 10/25/2024 Abundio Lizarraga Plan Of Treatment Medication Medication Name Sig Start Date Stop Date Notes Halobetasol Propionate 0.05 % APPLY TOPI TRINI TO THE AFFECTED AREA TWICE DAILY for 150 Next Appt Details Provider Name:Abundio tinoco, 12/05/2024 11:15:00 AM, [address] [place] [address], [address], [place], [place], [phone], Provider Name:Abundio tinoco, 05/26/2025 07:30:00 AM, [address] [place] [address], [address], [place], [place], [phone], Provider Name:Abundioinna tinoco, 06/09/2025 09:30:00 AM, [address] [facility], [address], [place], [phone], Progress Notes * Ketan CORBETTOB: 0 (64 yo M)Acc No.[id number]:10/25/2024 Patient:?Sourav CORBETT :1960???Age:64 Y???Sex:Male Address:[address] [place] [address], [place] [address], [place] [address] * Refills? Refill Halobetasol Propionate Cream, 0.05 %, 250 Gram, APPLY TOPICALLY TO THE AFFECTED AREA TWICE DAILY, 150, Refills=0 * true * Date:? Generated for Richelle danielle/Barb/eTransmitting on:?11/24/2024 11:38 AM EDT
[2024-11-24 13:08] LABS: Reflex LDLD? No
== END 2024-11-24 10:31 | disposition home or self-care (01) ==
LOC: HO.LNP 10:30
PROVIDERS: Visit Provider Internal Medicine
DX: E11.40 Type 2 diabetes mellitus with diabetic neuropathy, unspecified (principal); E78.00 Pure hypercholesterolemia, unspecified
CPT/HCPCS: 80061; 80076; 82947; 83036

== ENCOUNTER 2024-12-02 06:49 | Emergency (ER) | payer MEDICARE, SELFPAY ==
--- NOTE | ~2024-12-02 | US_ITS ---
EXAMINATION: US LOWER EXTREMITY VEINS LIMITED FOLLOW UP LEFT HISTORY: swelling, pain, concern for DVT COMPARISON: Comparison is made with the prior examination dated 06/07/2022. TECHNIQUE: Duplex and color Doppler sonographic examination of the deep venous system of the left lower extremity was performed. FINDINGS: The common femoral, superficial femoral, and popliteal veins are patent demonstrating normal compressibility, spontaneous flow, and augmentation. There is a normal color and spectral Doppler waveform appearance of the visualized deep venous system above the knee. The posterior tibial and peroneal veins are patent. There are prominent lymph nodes in both inguinal regions. US/US venous duplex LE LT IMPRESSION: No evidence of acute DVT in the left lower extremity. Electronically signed by: Hamlet Wharton MD 12/02/2024 11:36 AM EDT
[2024-12-02 06:51] VITALS: BP 142/71; PULSE 95; RESP 20; TEMP 36.3; O2SAT 98; BMI 34.1
[2024-12-02 07:29] LABS: MANUAL DIFF FLAG NO
[2024-12-02 07:32] LABS: Basophils Absolute Auto 0.1 X10*3/uL (0.0-0.2); Basophils Percent Auto 0.6 % (0-2); Eosinophils Absolute Auto 1.3 X10*3/uL (0.0-0.4); Eosinophils Percent Auto 15.4 % (0-4); Hematocrit 32.8 % (42.0-52.0); Hemoglobin 9.3 g/dl (14.0-18.0); Imm Gran Abs Auto 0.04 X10*3/uL (0.00-0.03); Imm Gran Pct Auto 0.5 % (0.0-0.4); Lymphocytes Absolute Auto 1.1 X10*3/uL (1.2-4.9); Lymphocytes Percent Auto 12.9 % (20-40); Mean Corpuscular HGB Conc 28.4 g/dl (31.0-36.0); Mean Corpuscular Hemoglobin 21.3 pg (27.0-33.0); Mean Corpuscular Volume 75.1 fL (80.0-98.0); Mean Platelet Volume 9.1 fL (9.4-12.4); Monocytes Absolute Auto 0.6 X10*3/uL (0.1-1.2); Monocytes Percent Auto 7.2 % (2-11); Neutrophils Absolute Auto 5.1 x10*3/uL (2.0-8.3); Neutrophils Percent Auto 63.4 % (45-73); Platelet Count 315 X10*3/uL (160-400); Red Blood Count 4.37 X10*6/uL (4.60-5.80); Red Cell Distribution Width 17.8 % (11.0-16.0); White Blood Count 8.1 X10*3/uL (4.8-10.8)
[2024-12-02 07:50] LABS: Alanine Aminotransferase 13 U/L (0-40); Albumin Level 3.8 g/dL (3.5-5.0); Alkaline Phosphatase 84 U/L (39-117); Anion Gap 13 (12-20); Aspartate Amino Transferase 24 U/L (5-37); Bilirubin Total 0.4 mg/dL (0.0-1.0); Blood Urea Nitrogen 10 mg/dL (9-16); Calcium 8.9 mg/dL (8.4-10.2); Carbon Dioxide 22 mmol/L (22-29); Chloride 112 mmol/L (96-108); Creatinine Clr Calc Pharmacy 103.1; Estimated Glomerular Filt Rate > 60; Glucose Random 231 mg/dL (60-115); Potassium 4.9 mmol/L (3.3-5.1); Sodium 142 mmol/L (135-145)
[2024-12-02 08:18] VITALS: BP 120/74; PULSE 89; RESP 18; TEMP 36.6; O2SAT 100
--- NOTE | 2024-12-02 08:35 | PC.NURSE ---
pt iS alert and oriented, skin pwd, respirations even and unlabored, pt reports for about a year having swelling/redness/pain to his left calf, pt reports going to his pcp and not really getting any help, pt is also reporting all over skin rash, back/abd/arms and legs-rash is fine/itchy/red using a cream that pcp prescribed but the pt cant reach his back to applie the cream,
--- NOTE | 2024-12-02 09:24 | ED_ITS ---
HPI - General Adult General Chief complaint: Extremity Problem Stated complaint: swollen knee Time Seen by Provider: 12/02/24 09:23 Source: patient Mode of arrival: ambulatory Limitations: no limitations History of Present Illness ED Provider: Janay Romo PA-C HPI narrative: Patient is a 64 year old assigned male at with a history of DM presenting to the emergency department today with left lower leg swelling and wounds. Patient states that over the last year he has had left lower leg swelling and wounds to his left foot and lower leg that randomly ooze. Patient denies any dizziness, lightheadedness, abdominal pain, nausea, vomiting, fever, chills, blurry vision, double vision, loss of vision, chest pain, difficulty breathing, shortness of breath, back pain, night sweats, pain with urination, increased urinary frequency, increased urinary urgency, blood in his urine or stool, syncope or a near syncopal episode, recent trauma or falls, bowel incontinence, bladder incontinence, or any other complaints at this time. Onset (ago): year(s) (1) Location: left and lower extremity Relieving factors: none Exacerbating factors: none Associated symptoms: denies other symptoms Treatments prior to arrival: none Related Data Home Medications ?Medication ?Instructions ?Recorded ?Confirmed celecoxib 200 mg capsule 200 mg PO DAILY 02/11/22 06/07/22 dapagliflozin propanediol 10 mg 10 mg PO DAILY 02/11/22 06/07/22 tablet (Farxiga) gabapentin 600 mg tablet 600 mg PO BID 02/11/22 06/07/22 latanoprost 0.005 % eye drops 1 drp ophthalmic-Right BEDTIME 02/11/22 06/07/22 levothyroxine 100 mcg tablet 100 mcg PO DAILY@0600 02/11/22 06/07/22 lisinopril 40 mg tablet 40 mg PO DAILY 02/11/22 06/07/22 metformin 1,000 mg tablet 1,000 mg PO BID 02/11/22 06/07/22 rosuvastatin 20 mg tablet 20 mg PO BEDTIME 02/11/22 06/07/22 tramadol 50 mg tablet 100 mg PO BEDTIME 02/11/22 06/07/22 ascorbic acid (vitamin C) 500 mg 500 mg PO DAILY 06/07/22 06/07/22 tablet (Vitamin C) ferrous sulfate 325 mg (65 mg 325 mg PO DAILY 06/07/22 06/07/22 iron) tablet (Iron (ferrous sulfate)) furosemide 40 mg tablet 1 tab PO DAILY 06/07/22 06/07/22 hydroxyzine HCl 10 mg tablet 1 tab PO Q6-8H PRN Itching 06/07/22 06/07/22 omeprazole 20 mg capsule,delayed 1 cap PO DAILY@0630 06/07/22 06/07/22 release Previous Rx's ?Medication ?Instructions ?Recorded hydrocortisone 2.5 % topical cream 1 appl topical BID PRN skin 02/11/22 irritation #30 grams cephalexin 500 mg capsule 500 mg PO Q6H 7 days #28 caps 12/02/24 doxycycline hyclate 100 mg tablet 100 mg PO BID 7 days #14 tabs 12/02/24 Allergies Allergy/AdvReac Type Severity Reaction Status Date / Time No Known Allergies Allergy Verified 12/02/24 06:53 [No Known Allergies*] hay fever Allergy Unknown sneezing Uncoded 02/11/22 10:44 watery eyes Review of Systems 2 Constitutional: Constitutional: Reports no additional constitutional complaints, Denies chills, Denies fever(s) and Denies night sweats Eyes: Eyes: Reports no additional eye complaints, Denies blurry vision, Denies change in vision, Denies diplopia, Denies eye discharge, Denies loss of vision and Denies eye pain ENT: Denies dizziness Cardiovascular: Cardiovascular: Reports no additional cardiovascular complaints, Denies chest pain, Denies lightheadedness, Denies Loss of Consciousness and Denies dyspnea Respiratory: Respiratory: Reports no additional respiratory complaints and Denies dyspnea Gastrointestinal: Gastrointestinal: Reports no additional gastrointestinal complaints, Denies abdominal pain, Denies melena, Denies hematochezia, Denies change in bowel habits and Denies change in stool character Genitourinary: Genitourinary: Reports no additional male genitourinary complaints, Denies hematuria, Denies oliguria, Denies difficulty urinating, Denies dysuria, Denies urinary frequency, Denies urinary hesitancy, Denies urinary incontinence and Denies urinary urgency Musculoskeletal: Musculoskeletal: Reports no additional musculoskeletal complaints, Denies numbness and Denies tingling Comments: left lower leg swelling Integumentary/Breasts: Comments: left foot / lower leg wounds Neurologic: Denies dizziness, Denies loss of vision, Denies numbness and Denies tingling Psychiatric: Psychiatric: Reports no additional psychiatric complaints Endocrine: Endocrine: Reports no additional endocrine complaints Hematologic/Lymphatic: Hematologic/Lymphatic: Reports no additional hematologic/lymphatic complaints Allergic/Immunologic: Allergic/Immunologic: Reports no additional allergic/immunologic complaints [facility] Past Medical History Attestation statement: The following information was validated with the patient. Source: old records reviewed and nursing notes reviewed Medical History Acquired hypothyroidism HTN (hypertension) Diabetes Diabetes Pedal edema Eczema Social History Social History Household Members: Spouse Housing: Apartment Do you presently have visiting nurse or other home services: No Patient Tobacco Use Status: Former Tobacco user Current occupational status: retired and disabled Physical Exam ED Vital Signs: Vital Signs - 24 hr 12/02/24 06:51 12/02/24 08:18 12/02/24 10:06 Temperature 97.4 F 97.8 F 97.8 F Pulse Rate 95 89 92 Respiratory Rate 20 18 18 Blood Pressure 142/71 H 120/74 125/66 Pulse Oximetry 98 100 98 Oxygen Delivery Method Room Air Room Air Room Air 12/02/24 12:07 Temperature 97.8 F Pulse Rate 92 Respiratory Rate 18 Blood Pressure 125/66 Pulse Oximetry 98 Oxygen Delivery Method Room Air BMI result Body Mass Index 34.1 Const General: cooperative, no acute distress, alert and awake Nutritional Appearance: well nourished Orientation/consciousness: patient oriented x3 Limitations: no limitations [facility] Head: Yes normal to inspection and Yes atraumatic Ears: hearing grossly normal bilaterally and external ears normal General nose exam: Normal external nose present, no nasal discharge noted and no epistaxis Face and sinus: Yes normal facial exam, No abrasion and No laceration Mouth: Normal oral and palatal mucosa present, no drooling and no muffled voice Eyes General: appearance normal, both eyes and all related structures Periorbital: periorbital findings normal Eyelids: Yes eyelids normal Conjunctivae: conjunctivae normal Pupils: Equal, round and reactive pupils present EOM: EOMs intact bilaterally Neck Neck: Yes normal visual inspection, Yes full ROM and Yes no lymphadenopathy Chest Chest palpation & inspection: normal inspection of the chest Resp Effort & Inspection: normal respiratory effort and able to speak in complete sentences GI Inspection: Yes normal to inspection Neuro General: patient oriented x3, moves all extremities and CN's II-XI intact bilaterally Cranial nerves: Yes Equal, round and reactive pupils present Cognition (Neuro): normal cognition Extrem Other: Left lower leg swelling erythema present to the left dorsal and lateral foot with no evidence of ulceration or necrosis General: Yes full ROM and Yes capillary refill normal Psych Appearance: grossly normal Mental Status: mental status grossly normal Affect: normal affect Attitude: cooperative Thought process: Normal thought process present Thought content: Normal thought content present Insight: Good insight present (Psych) Medical Decision Making Medical Decision Making MDM Narrative: Patient is a 64 year old assigned male at with a history of DM presenting to the emergency department today with left lower leg swelling and wounds. Patient's physical exam was as noted in the physical exam portion of this note and most consistent with cellulitis. Patient's blood work showed a worsening anemia with a hgb of 9.3 but otherwise unremarkable. Patient's left lower extremity US showed no acute process. I explained my physical exam findings as well as all test results to the patient. I answered all questions asked by the patient. I stressed the importance of the patient taking his medication as directed (either prescribed or as the over the counter packaging recommends). I stressed the importance of the patient following up with his primary care provider. I stressed the importance of the patient returning to the emergency department immediately if his symptoms were to worsen or if he were to develop any dizziness, shortness of breath, difficulty breathing, chest pain, blurry vision, loss of vision, nausea, vomiting, abdominal pain, fever, chills, back pain, or any other complaints. Patient verbalized agreement and understanding with this treatment plan and discharge. Differential Diagnosis Differential Diagnoses: The differential diagnosis associated with the presentation includes Left lower extremity cellulitis Left lower extremity pain Left lower extremity DVT Admission/Observation Consideration of admission/observation: Escalation of care including admission/observation considered Patient would have been admitted to the hospital had his work up had any findings where hospital admission was appropriate and his clinical presentation warranted hospital admission. Lab Data [facility] Lab Attestation statement: I reviewed the patient's lab results. My interpretation of these results are in the MDM Rationale portion of this note. 12/02/24 07:24 12/02/24 07:24 Labs: Lab Results 12/02/24 Range/Units 07:24 WBC 8.1 (4.8-10.8) X10*3/uL RBC 4.37 L (4.60-5.80) X10*6/uL Hgb 9.3 L D (14.0-18.0) g/dl Hct 32.8 L (42.0-52.0) % MCV 75.1 L (80.0-98.0) fL MCH 21.3 L (27.0-33.0) pg MCHC 28.4 L (31.0-36.0) g/dl RDW 17.8 H (11.0-16.0) % Plt Count 315 (160-400) X10*3/uL MPV 9.1 L (9.4-12.4) fL Immature Gran % (Auto) 0.5 H (0.0-0.4) % Neut % (Auto) 63.4 (45-73) % Lymph % (Auto) 12.9 L (20-40) % Ray % (Auto) 7.2 (2-11) % Eos % (Auto) 15.4 H (0-4) % Baso % (Auto) 0.6 (0-2) % Lymph # (Auto) 1.1 L (1.2-4.9) X10*3/uL Ray # (Auto) 0.6 (0.1-1.2) X10*3/uL Eos # (Auto) 1.3 H (0.0-0.4) X10*3/uL Baso # (Auto) 0.1 (0.0-0.2) X10*3/uL Abs Immat Gran (auto) 0.04 H (0.00-0.03) X10*3/uL Absolute Neuts (auto) 5.1 (2.0-8.3) x10*3/uL Absolute Nucleated RBC 0.000 (0.0-0.012) X10*3/uL Nucleated RBC % (auto) 0.0 (0.0-0.2) /100WBC Sodium 142 (135-145) mmol/L Potassium 4.9 (3.3-5.1) mmol/L Chloride 112 H (96-108) mmol/L Carbon Dioxide 22 (22-29) mmol/L Anion Gap 13 (12-20) BUN 10 (9-16) mg/dL Creatinine 0.89 (0.5-1.4) mg/dL Estim Creat Clear Calc 103.1 Estimated GFR > 60 Random Glucose 231 H (60-115) mg/dL Calcium 8.9 D (8.4-10.2) mg/dL Total Bilirubin 0.4 (0.0-1.0) mg/dL AST 24 (5-37) U/L ALT 13 (0-40) U/L Alkaline Phosphatase 84 (39-117) U/L Total Protein 7.0 (6.5-8.0) g/dL Albumin 3.8 (3.5-5.0) g/dL Independent Interpretation I performed an independent interpretation of an: Ultrasound Interpretation: My interpretation is in agreement with the radiologist's impression of this imaging study. L EXAMINATION: US LOWER EXTREMITY VEINS LIMITED FOLLOW UP LEFT HISTORY: swelling, pain, concern for DVT COMPARISON: Comparison is made with the prior examination dated 06/07/2022. TECHNIQUE: Duplex and color Doppler sonographic examination of the deep venous system of the left lower extremity was performed. FINDINGS: The common femoral, superficial femoral, and popliteal veins are patent demonstrating normal compressibility, spontaneous flow, and augmentation. There is a normal color and spectral Doppler waveform appearance of the visualized deep venous system above the knee. The posterior tibial and peroneal veins are patent. There are prominent lymph nodes in both inguinal regions. US/US venous duplex LE LT IMPRESSION: No evidence of acute DVT in the left lower extremity. Electronically signed by: Hamlet Wharton MD 12/02/2024 11:36 AM EDT Dictated By: Hamlet Wharton MD Signed By: Electronically signed by Hamlet Wharton MD 12/02/24 1136 Radiology Impression Discussion of test interpretation with radiology: I have reviewed the radiologist's reading. Prescription Management I considered prescription management with: Antibiotic (patient prescribed antibiotics for cellulitis) Chronic Conditions Patient?s care impacted by: Diabetes Discharge Plan Discharge Clinical Impression: Cellulitis Patient Disposition: Home, Self-Care Instructions: Cellulitis (DC) Additional Instructions: Your ultrasound showed no blood clot. Follow up with your primary care provider. Return to the emergency department immediately if your symptoms worsen or if you develop any numbness, tingling, dizziness, shortness of breath, difficulty breathing, chest pain, blurry vision, loss of vision, nausea, vomiting, abdominal pain, fever, chills, back pain, or any other complaints. Please see the information below about our Patient Portal. If you are not yet enrolled in the [facility] Patient Portal, you will receive an enrollment email invitation following your visit to any [facility] care setting. You may also self-enroll in the Patient Portal by visiting our website: [email or web address] The following information is required to access the Patient Portal: - Your [facility] Medical Record Number - Your personal home email address (must match what is in your electronic medical record, Registration staff can assist with this) - Name - Date of Capabilities of the Patient Portal: - Message some providers - View upcoming appointments - Access your health summary, medical history, and visit history - View current conditions and allergies - View procedure and lab results - View your medications, including guidelines, side effects, and precautions - Complete pre-appointment questionnaires requested by your provider - Ready summary reports of your office visits and procedures To access the Patient Portal Mobile [employer], follow these directions: - Search [employer] in the Beau Store or [employer] Store - Download the Beau - Search for [facility] - Enter your login/password Prescriptions: New cephalexin 500 mg capsule 500 mg PO Q6H 7 Days Qty: 28 0RF doxycycline hyclate 100 mg tablet 100 mg PO BID 7 Days Qty: 14 0RF No Action furosemide 40 mg tablet 1 tab PO DAILY omeprazole 20 mg capsule,delayed release(DR/EC) 1 cap PO DAILY@0630 hydroxyzine HCl 10 mg tablet 1 tab PO Q6-8H PRN (Reason: Itching) Rx Instructions: may double the dose before bedtime ascorbic acid (vitamin C) [Vitamin C] 500 mg Tablet 500 mg PO DAILY ferrous sulfate [Iron (ferrous sulfate)] 325 mg (65 mg iron) Tablet 325 mg PO DAILY levothyroxine 100 mcg tablet 100 mcg PO DAILY@0600 metformin 1,000 mg tablet 1,000 mg PO BID gabapentin 600 mg tablet 600 mg PO BID tramadol 50 mg tablet 100 mg PO BEDTIME celecoxib 200 mg capsule 200 mg PO DAILY latanoprost 0.005 % drops 1 drp ophthalmic-Right BEDTIME rosuvastatin 20 mg tablet 20 mg PO BEDTIME lisinopril 40 mg tablet 40 mg PO DAILY Farxiga 10 mg tablet 10 mg PO DAILY hydrocortisone 2.5 % cream 1 appl topical BID PRN (Reason: skin irritation) Qty: 30 1RF Referrals: Abundio Lizarraga MD [Primary Care Provider] - Interventions: ED Discharge Assessment Last Done: 12/02/24 12:07 Discharge Date/Time: 12/02/24 12:08 Print Language: Latvian
[2024-12-02 10:06] VITALS: BP 125/66; PULSE 92; RESP 18; TEMP 36.6; O2SAT 98
[2024-12-02 12:07] VITALS: BP 125/66; PULSE 92; RESP 18; TEMP 36.6; O2SAT 98
== END 2024-12-02 12:08 | disposition home or self-care (01) ==
PROVIDERS: Emergency Provider Emergency Medicine Emergency Medical Services; PCP Internal Medicine
DX: L03.116 Cellulitis of left lower limb (principal); R60.0 Localized edema; Z87.891 Personal history of nicotine dependence
CPT/HCPCS: 36415; 80053; 85025; 93971; 99284

== ENCOUNTER → 2024-12-02 09:38 | Outpatient (BNV) | payer MEDICARE, SELFPAY | PROVIDERS: Emergency Provider Emergency Medicine Emergency Medical Services; PCP Internal Medicine; Visit Provider Radiology Diagnostic Radiology | DX: R22.42 Localized swelling, mass and lump, left lower limb (principal); M79.605 Pain in left leg | CPT/HCPCS: 93971 ==

== ENCOUNTER 2025-05-30 09:45 | Outpatient (REF) | payer MEDICARE, SELFPAY ==
--- OUTSIDE RECORDS SUMMARY | 2025-02-06 07:19 | XMS_ITS ---
Author Organization Abundio Lizarraga MD Address [address] [place] [phone] Care Team Providers Care Woods Rider Name Role Phone Abundio Lizarraga Primary Care [...] Abundio Lizarraga MD [address] [place] [phone] 02/06/2025 Abundio Lizarraga Type 2 diabetes mellitus [...] Next Appt Details Provider Name:Abundio Andujar ier, 06/09/2025 09:30:00 AM, [address], [address], [place], [place], [phone], Provider Name:Abundio Andujar ier, 07/07/2025 10:45:00 AM, [address] [facility], [address], [place], [place], [phone], Progress Notes * Ketan CORBETTOB: 0 (64 yo M)Acc No.[id number]:02/06/2025 Patient: Maikol PIÑASourav :1960 A ge:64 Y S ex:Male Address:[address] [place] [id number] * Refills Refill Doxycycline Hyclate Capsule, 100 MG, Orally, 20, 1 capsule, twice, 10 days Refill Cephalexin Capsule, 500 MG, Orally, 20 Capsule, 1 capsule, twice a day, 10 days * true * Date: Generated for Richelle danielle/Barb/Jerseysmitting on: 1 11:12 AM EDT
--- OUTSIDE RECORDS SUMMARY | 2025-04-04 07:15 | XMS_ITS ---
Author Organization Abundio Lizarraga MD Address [address] [place], [place] [phone] Care Team Providers Care Ic Design Manager Name Role Phone Abundio Lizarraga Primary Care Provider [phone] Allergies No Known Allergies Results Component Value [...] Location Date Provider Diagnosis Abundio Lizarraga MD [address] [place] [phone] 04/04/2025 Abundio Lizarraga Type 2 diabetes mellitus [...] Follow Up: 3 Months, Reason: Provider Name:Abundio Andujar ier, 06/09/2025 09:30:00 AM, [address] [place] [address], [address], [phone], Provider Name:Abundio Andujar ier, 07/07/2025 10:45:00 AM, [address] [place] [address], [place] [address], [place], [place], [phone], Progress Notes * Ketan CORBETTOB: 0 (64 yo M)Acc No.[id number]:04/04/2025 Progress Notes Patient: Sourav MENJIVAR Provider: Mayuri Lizarraga MD :1960 A ge:64 Y S ex:Male Date:04/04/2025 Address:[address] [place] [address], [facility], [place], [place] Subjective: * Chief Complaints: * 3 month [...] 2947 ASSAY, GLUCOSE, BLOOD QUANT, Modifiers: QW 49254 GLYCATED HEMOGLOBIN TEST, Modifiers: QW * Follow Up: 3 Months * * Sign off status: Completed true * Provider: Mayuri Lizarraga MD Date: 0 04/04/2025 Generated for Richelle danielle/Barb/Aaliyah on: 1 11:12 AM EDT History and Physical Notes * HPI (History [...]
--- OUTSIDE RECORDS SUMMARY | 2025-04-18 04:05 | XMS_ITS ---
Author Organization Abundio Lizarraga MD Address [address] [place] [phone] Care Team Providers Care Transplant Coordinator Name Role Phone Abundio Lizarraga Primary Care Provider [phone] REASON FOR VISIT RF Ventolin Medications Medication SIG (Take, Route, Frequency, Duration) Notes Start Date End Date Status Ventolin HFA 108 (90 Base) MCG/ACT INHALE ONE PUFF BY MOUTH EVERY 4 HOURS NEEDED every 4 hrs for 30 days Active Encounters Encounter Location Date Provider Diagnosis Abundio Lizarraga MD [address] [place] [phone] 04/18/2025 Abundio Lizarraga Acute asthma J45.909 Assessments [...] days Next Appt Details Provider Name:Abundio tinoco, 06/09/2025 09:30:00 AM, [address], [address], [place], [place], [phone], Provider Name:Abundio Andujar ritar, 07/07/2025 10:45:00 AM, [address], [address], [place], [place], [phone], Progress Notes * Ketan CORBETTOB: 0 (65 yo M)Acc No.[id number]:04/18/2025 Patient: Maikol PIÑA Sourav :1960 A ge:65 Y S ex:Male Address:[address] [place] [address], [place] [address], [place] [address] * Refills Refill Ventolin HFA Aerosol Solution, 108 (90 Base) MCG/ACT, 1, INHALE ONE PUFF BY MOUTH EVERY 4 HOURS NEEDED, every 4 hrs, 30 days, Refills=3 * true * Date: Generated for Richelle danielle/Barb/Alirioitting on: 11:12 AM EDT
--- OUTSIDE RECORDS SUMMARY | 2025-05-19 05:09 | XMS_ITS ---
Author Organization Abundio Lizarraga MD Address [address] [place] [phone] Care Team Providers Care Casket Assembler Metal Name Role Phone Abundio Lizarraga Primary Care Provider [phone] REASON FOR VISIT Increase Lantus Medications Medication SIG (Take, Route, Frequency, Duration) Notes Start Date End Date Status Lantus SoloStar 100 UNIT/ML 30units SQ Subcutaneous daily for 90 days 10/24/2024 Active Encounters Encounter Location Date Provider Diagnosis Abundio Lizarraga MD [address] [place] [phone] 05/19/2025 Abundio Lizarraga Type 2 diabetes mellitus [...] 10/24/2024 Next Appt Details Provider Name:Abundio tinoco, 06/09/2025 09:30:00 AM, [address], [address], [place], [place], [phone], Provider Name:Abundio Cuellar Con tinoco, 07/07/2025 10:45:00 AM, [address], [address], [place], [place], [phone], Progress Notes * Ketan CORBETTOB: 0 (65 yo M)Acc No.[id number]:05/19/2025 Patient: Maikol Sourav PIÑA :1960 A ge:65 Y S ex:Male Address:[address] [place] [address], [place] [address], [place] [address] * Refills Refill Lantus SoloStar Solution Pen-injector, 100 UNIT/ML, Subcutaneous, 20, 30units SQ, daily, 90 days, Refills=3 * true * Date: Generated for Richelle danielle/Barb/Jerseysmitting on: 1 11:11 AM EDT
--- OUTSIDE RECORDS SUMMARY | 2025-05-30 03:30 | XMS_ITS ---
Author Organization Abundio Lizarraga MD Address [address] [place], [place] [id number] Care Team Providers Care Waist Cutter Name Role Phone Abundio Lizarraga Primary Care Provider Results Component Value Reference Range Notes Complete Blood Count Auto Di ff (Not yet reviewed by provider) Interpretation: Performing Lab:[facility], [address] [place] [phone] Notes/Report: White Blood Count 7.7 4.8-10.8 X10*3/uL [...] NRBC Abs Auto 0.000 0.0-0.012 X10*3/uL Comprehensive [place]. Panel Fa st (Not yet reviewed by provider) Interpretation: Performing Lab:[facility], [address] [place] [phone] Notes/Report: Sodium 143 135-145 mmol/L Potassium 4.5 [...] Alkaline Phosphatase 66 39-117 U/L IRON PROFILE (Not yet review ed by provider) Interpretation: Performing Lab:[facility], [address] [place] [phone] Notes/Report: Iron 19 45-160 mcg/dL Total Iron Binding Capacity 348 228-428 mcg/d L Percent Iron Saturation 5 15-50 % Unsaturated Iron Binding 329 Lipid Panel (Not yet reviewe d by provider) Interpretation: Performing Lab:[facility], [address] [place] [phone] Notes/Report: Triglycerides 165 <150 mg/dL Desirable Triglyceride: [...] in patients with liver disease. PSA,Total (Free>4and<10) (No t yet reviewed by provider) Interpretation: Performing Lab:[facility], [address] [place] [phone] Notes/Report: PSA,Total (Free>4and<10) 0.33 0.00-4.00 ng/mL A [...] i Chemiluminescent Microparticle Immunoassay (CMIA) Microalbumin, Random (Not ye t reviewed by provider) Interpretation: Performing Lab:[facility], [address] [place] [phone] Notes/Report: Creatinine Urine 82.76 Microalbumin Urine 17.0 Microalbum/Creatinine Ratio Ur 20.5 <30 ug/mg cr Albumin/Creatinine Ratio Reference Ranges: Normal: < 30 ug/mg creatinine Microalbuminuria: 30 - 300 ug/mg creatinine Clinical Albuminuria: > 300 ug/mg creatinine Hemoglobin A1c (Not yet revi ewed by provider) Interpretation: Performing Lab:[facility], [address] [place] [phone] Notes/Report: Hemoglobin A1c % 9.2 <6.0 % [...] average glucose, using the formula of the Z6B-Elvazhk Average Glucose study (ADAG), Diabetes Care, Vol.31,#8, 2007 UA ClnCatch+Micro w/rflx Cul t (Not yet reviewed by provider) Interpretation: Performing Lab:[facility], [address] [place] [phone] Notes/Report: Urine, Clean Catch Color Urine Yellow Appearance Urine Cloudy PH 8.0 5.0-9.0 Glucose Urine UA >=1000 Negative mg/dL Urine Blood Negative Negative Specific [place] - Urine >= 1.030 1.005-1.025 Urine Protein [...] Date Provider Diagnosis Abundio Lizarraga MD [address] [place], [place] [id number] 05/30/2025 Abundio Lizarraga Blood tests for rout [...] (ICD-10 - E78.00) b Plan Of Treatment Pending Test Test Name Order Date Complete Blood Count Auto Diff Comprehensive [place]. Panel Fast IRON PROFILE 05/30/2025 Lipid Panel 05/30/2025 PSA,Total (Free>4and<10) 05/30/2025 Microalbumin, Random 05/30/2025 Hemoglobin A1c 05/30/2025 UA ClnCatch+Micro w/rflx Cult 05/30/2025 Next Appt Details Provider Name:Abundio tinoco, 06/09/2025 09:30:00 AM, [address] [place] [address], [address], [phone], Provider Name:Abundio Polo Con tinoco, 07/07/2025 10:45:00 AM, [address] [place] [address], [address], [phone], Progress Notes * Kary CORBETToreDOB: 0 (65 yo M)Acc No.[id number]:05/30/2025 Progress Note Patient: Kary MENJIVARore Provider: Mayuri Lizarraga MD :1960 A ge:65 Y S ex:Male Date:05/30/2025 Address:[address] [place] [address], [id number] Subjective: * Chief Complaints: * 1 . [...] - 05/30/2025 07:30 AM) L AB: Comprehensive [place]. Panel Fast (Collection Date & Time - [...] - 05/30/2025 07:30 AM) L AB: Comprehensive [place]. Panel Fast (Collection Date & Time - [...] - 05/30/2025 07:30 AM) L AB: Comprehensive [place]. Panel Fast (Collection Date & Time - [...] - 05/30/2025 07:30 AM) L AB: Comprehensive [place]. Panel Fast (Collection Date & Time - [...] Lizarraga MD Date: 1 Generated for Richelle danielle/Barb/Aaliyah on: 1 11:12 AM JOSEFT
[2025-05-30 09:49] LABS: MANUAL DIFF FLAG NO
[2025-05-30 10:16] LABS: Hematocrit 30.1 % (42.0-52.0); Hemoglobin 8.6 g/dl (14.0-18.0); Imm Gran Abs Auto 0.03 X10*3/uL (0.00-0.03); Imm Gran Pct Auto 0.4 % (0.0-0.4); Lymphocytes Absolute Auto 1.5 X10*3/uL (1.2-4.9); Mean Corpuscular HGB Conc 28.6 g/dl (31.0-36.0); Mean Corpuscular Hemoglobin 20.5 pg (27.0-33.0); Mean Corpuscular Volume 71.8 fL (80.0-98.0); NRBC Abs Auto 0.000 X10*3/uL (0.0-0.012); NRBC Pct Auto 0.0 /100WBC (0.0-0.2); Platelet Count 296 X10*3/uL (160-400); Red Blood Count 4.19 X10*6/uL (4.60-5.80); White Blood Count 7.7 X10*3/uL (4.8-10.8)
[2025-05-30 10:21] LABS: Appearance Urine Cloudy; Glucose Urine UA >=1000 mg/dL (Negative); PH 8.0 (5.0-9.0); Specific Gravity - Urine >= 1.030 (1.005-1.025); UMIC TRIGGER UACC YES
[2025-05-30 10:38] LABS: Alanine Aminotransferase 14 U/L (0-40); Albumin Level 4.2 g/dL (3.5-5.0); Alkaline Phosphatase 66 U/L (39-117); Anion Gap 15 (12-20); Aspartate Amino Transferase 32 U/L (5-37); Blood Urea Nitrogen 15 mg/dL (9-16); Calcium 8.7 mg/dL (8.4-10.2); Carbon Dioxide 26 mmol/L (22-29); Chloride 107 mmol/L (96-108); Cholesterol 106 mg/dL (<200); Estimated Glomerular Filt Rate > 60; HDL Cholesterol 31 mg/dL (>40); Iron 19 mcg/dL (45-160); Percent Iron Saturation 5 % (15-50); Potassium 4.5 mmol/L (3.3-5.1); Sodium 143 mmol/L (135-145); Total Iron Binding Capacity 348 mcg/dL (228-428); Total Protein 7.2 g/dL (6.5-8.0); Triglycerides 165 mg/dL (<150); Unsaturated Iron Binding 329 ug/dL
[2025-05-30 10:56] LABS: PSA,Total (Free>4and<10) 0.33 ng/mL (0.00-4.00)
[2025-05-30 11:03] LABS: Microalbum/Creatinine Ratio Ur 20.5 ug/mg cr (<30)
--- OUTSIDE RECORDS SUMMARY | 2025-05-30 11:11 | XMS_ITS | Clinical Summary ---
Author Organization [facility] Address [address] [place] [address] Phone Care Team Providers Care Sign Language Teacher Name Role Phone Abundio Lizarraga MD Primary Care Provider [phone] Medications traMADol (ULTRAM) 50 MG tablet TAKE [...] 08/21/2022 Cervical nerve root compression 08/21/2022 Immunizations Immunization Administration Dates Next Due DT 04/04/2019 Moderna [...] Due Date Last Done Comments Pneumococcal Vaccine: 50+ Years (1 of 2 - PCV) 1979 Colorectal Cancer Screening: Annual FOBT 2009 Colorectal Cancer Screening: Colonoscopy 2009 Colorectal Cancer Screening: Sigmoidoscopy 2009 Diabetes: Hemoglobin A1C 06/11/2022//2 022, 09/20/2021, 06/20/2021, Additional history exists Diabetes: Ophthalmology Exam 06/11/2022 Diabetes: Pedal Pulse Checked 06/11/2022 Diabetes: Sensory Foot Exam 06/11/2022 Diabetes: Visual Foot Exam 06/11/2022 Influenza Vaccine (#1) 2025 Hepatitis B Vaccine Aged Out No longe r eligible based on patient's age to complete this topic Insurance Medicare Medicaid [place] Medicare Medicaid [place] Care Teams Sign Language Teacher Relationship Specialty Start Date End Date Abundio Lizarraga MD [address] [place] [address] [id number] [place], [place] PCP - General Internal Medicine 06/09/22
--- OUTSIDE RECORDS SUMMARY | 2025-05-30 11:12 | XMS_ITS | Patient Health Record ---
Author Organization Abundio Lizarraga MD Address [address] [place], [place] [id number] Care Team Providers Care Retail Department Reset Name Role Phone Abundio Lizarraga Primary Care Provider [phone] Allergies No Known Allergies Results Component Value Reference Range Notes Hemoglobin A1c Reviewed date:09/02/2024 09:00:19 AM Interpretation: Performing Lab: Notes/Report: Hemoglobin A1c 9.6 Hemoglobin A1c Reviewed date:04/04/2025 11:00:03 AM Interpretation: Performing Lab: Notes/Report: Hemoglobin A1c 8.6 Liver Panel Reviewed date:11/24/2024 04:30:46 PM Interpretation: Performing Lab:[facility], [address] [place] [phone] Notes/Report: Bilirubin Total 0.2 0.0-1.0 mg/dL Bilirubin Direct < 0.2 0.0-0.5 mg/dL Aspartate Amino Transferase 29 5-37 U/L Alanine Aminotransferase 18 0-40 U/L Total Protein 7.0 6.5-8.0 g/dL Albumin Level 3.9 3.5-5.0 g/dL Alkaline Phosphatase 78 39-117 U/L Glucose Fasting Reviewed date:11/24/2024 04:30:14 PM Interpretation: Performing Lab:[address] [address] Notes/Report: Glucose Fasting 177 60-99 mg/dL A fasting glucose of 126 mg/dl or greater on more than one occasion is considered diagnostic of diabetes. Lipid Panel with Reflex Reviewed date:11/24/2024 04:30:57 PM Interpretation: Performing Lab:[address] [address] Notes/Report: Triglycerides 193 <150 mg/dL Desirable Triglyceride: less than 150 mg/dL Borderline High Triglyceride 150-199 mg/dL High Triglyceride: 200-499 mg/dL Very High Triglyceride: greater than or equal to 5OO mg/dL Cholesterol 114 <200 mg/dL Desirable Cholesterol: less than 200 mg/dL Borderline High Cholesterol: 200-239 mg/dL High Cholesterol: greater than 239 mg/dL LDL Cholesterol Calculated 45 <100 mg/dL Desirable LDL: less than 100 mg/dL Near Optimal/Above Optimal LDL: 110-129 mg/dL Borderline High LDL: 130-159 mg/dL High LDL: 160-189 mg/dL Very High LDL: greater than or equal to 190 mg/dL HDL Cholesterol 31 >40 mg/dL Desirable HDL: greater than 40 mg/dL Note: This HDL assay may give artificially low results in patients with liver disease. Hemoglobin A1c Reviewed date:11/24/2024 12:39:37 PM Interpretation: Performing Lab:[address] [address] Notes/Report: Hemoglobin A1c % 9.2 <6.0 % [...] average glucose, using the formula of the B6F-Yjzmuwj Average Glucose study (ADAG), Diabetes Care, Vol.31,#8, 2007 Complete Blood Count Auto Di ff (Not yet reviewed by provider) Interpretation: Performing Lab:[facility], [address] [place] [address] Notes/Report: White Blood Count 7.7 4.8-10.8 X10*3/uL [...] NRBC Abs Auto 0.000 0.0-0.012 X10*3/uL Comprehensive [place]. Panel Fa st (Not yet reviewed by provider) Interpretation: Performing Lab:[facility], [address] [place] [phone] Notes/Report: Sodium 143 135-145 mmol/L Potassium 4.5 [...] yet review ed by provider) Interpretation: Performing Lab:[address] [address] Notes/Report: Iron 19 45-160 mcg/dL Total Iron Binding Capacity 348 228-428 mcg/dL Percent Iron Saturation 5 15-50 % Unsaturated Iron Binding 329 Lipid Panel (Not yet reviewe d by provider) Interpretation: Performing Lab:[address] [address] Notes/Report: Triglycerides 165 <150 mg/dL Desirable Triglyceride: [...] t yet reviewed by provider) Interpretation: Performing Lab:[facility] [address] [address] Notes/Report: PSA,Total (Free>4and<10) 0.33 0.00-4.00 ng/mL A [...] ye t reviewed by provider) Interpretation: Performing Lab:[address] [address] Notes/Report: Creatinine Urine 82.76 Microalbumin Urine 17.0 Microalbum/Creatinine Ratio Ur 20.5 <30 ug/mg cr Albumin/Creatinine Ratio Reference Ranges: Normal: < 30 ug/mg creatinine Microalbuminuria: 30 - 300 ug/mg creatinine Clinical Albuminuria: > 300 ug/mg creatinine Hemoglobin A1c (Not yet revi ewed by provider) Interpretation: Performing Lab:[address] [address] Notes/Report: Hemoglobin A1c % 9.2 <6.0 % [...] average glucose, using the formula of the U1X-Ovtybev Average Glucose study (ADAG), Diabetes Care, Vol.31,#8, Mar. 2007 UA ClnCatch+Micro w/rflx Cul t (Not yet reviewed by provider) Interpretation: Performing Lab:[address] [address] Notes/Report: Urine, Clean Catch Color Urine Yellow Appearance Urine Cloudy PH 8.0 5.0-9.0 Glucose Urine UA >=1000 Negative mg/dL Urine Blood Negative Negative Specific [place] - Urine >= 1.030 1.005-1.025 Urine Protein Negative Neg-Trace mg/dL Urine Ketones Negative Negative mg/dL Nitrite Urine Negative Negative Leukocyte Esterase Urine Negative Negative RBC Urine 0-2 0-2 /HPF WBC Urine 0-5 0-5 /HPF Squamous Epithelial Cell Urine 0-2 0-2 /HPF Bacteria Urine None Seen None Seen Hyaline Casts Urine 0-2 0-2 /LPF Glucose, finger stick Reviewed date:05/31/2024 09:24:54 AM Interpretation: Performing Lab: Notes/Report: Value 146 Glucose, finger stick Reviewed date:09/02/2024 08:53:20 AM Interpretation: Performing Lab: Notes/Report: Value 142 Glucose, finger stick (Not y et reviewed by provider) Interpretation: Performing Lab: Notes/Report: Value 132 Glucose, finger stick Reviewed date:01/03/2025 11:05:24 AM Interpretation: Performing Lab: Notes/Report: Value 131 Glucose, finger stick Reviewed date:04/04/2025 10:54:18 AM Interpretation: Performing Lab: Notes/Report: Value 144 Hold Gold Reviewed date:11/24/2024 10:57:06 AM Interpretation: Performing Lab:[facility], [address] [place] [address] Notes/Report: Hold Gold See Note Specimen held untested for 24 hours; Call to request Chemistry testing. Complete Blood Count Auto Di ff Reviewed date:01/05/2025 08:02:15 AM Interpretation:RUPERTO 01/03 Performing Lab:[facility], [address] [place] [address] Notes/Report: White Blood Count 8.1 4.8-10.8 X10*3/uL Red Blood Count 4.37 4.60-5.80 X10*6/uL Hemoglobin 9.3 14.0-18.0 g/dl Hematocrit 32.8 42.0-52.0 % Mean Corpuscular Volume 75.1 80.0-98.0 fL Mean Corpuscular Hemoglobin 21.3 27.0-33.0 pg Mean Corpuscular HGB Conc 28.4 31.0-36.0 g/dl Red Cell Distribution Width 17.8 11.0-16.0 % Platelet Count 315 160-400 X10*3/uL Mean Platelet Volume 9.1 9.4-12.4 fL Neutrophils Percent Auto 63.4 45-73 % Imm Gran Pct Auto 0.5 0.0-0.4 % Lymphocytes Percent Auto 12.9 20-40 % Monocytes Percent Auto 7.2 2-11 % Eosinophils Percent Auto 15.4 0-4 % Basophils Percent Auto 0.6 0-2 % NRBC Pct Auto 0.0 0.0-0.2 /100WBC Neutrophils Absolute Auto 5.1 2.0-8.3 x10*3/u L Imm Gran Abs Auto 0.04 0.00-0.03 X10*3/uL Lymphocytes Absolute Auto 1.1 1.2-4.9 X10*3/u L Monocytes Absolute Auto 0.6 0.1-1.2 X10*3/uL Eosinophils Absolute Auto 1.3 0.0-0.4 X10*3/u L Basophils Absolute Auto 0.1 0.0-0.2 X10*3/uL NRBC Abs Auto 0.000 0.0-0.012 X10*3/uL Comprehensive Met. Panel Reviewed date:12/02/2024 09:05:03 AM Interpretation: Performing Lab:[facility], [address] [place] [address] Notes/Report: Sodium 142 135-145 mmol/L Potassium 4.9 3.3-5.1 mmol/L Chloride 112 96-108 mmol/L Carbon Dioxide 22 22-29 mmol/L Anion Gap 13 12-20 Blood Urea Nitrogen 10 9-16 mg/dL Creatinine 0.89 0.5-1.4 mg/dL Creatinine Clr Calc Pharmacy 103.1 eGFR (calculated from the MDRD study equation) and eCrCl (calculated from the Cockcroft-Gault equation) are based on different parameters and may not yield comparable results. If eCrCl result is absurd, please check patient's height/weight. Estimated Glomerular Filt Rate > 60 Chronic Kidney Disease: Estimated GFR < 60 mL/min/1.73m2 Severe Kidney Disease: Estimated GFR < 15 mL/min/1.73m2 Glucose Random 231 60-115 mg/dL Calcium 8.9 8.4-10.2 mg/dL Bilirubin Total 0.4 0.0-1.0 mg/dL Aspartate Amino Transferase 24 5-37 U/L Alanine Aminotransferase 13 0-40 U/L Total Protein 7.0 6.5-8.0 g/dL Albumin Level 3.8 3.5-5.0 g/dL Alkaline Phosphatase 84 39-117 U/L US venous duplex LE LT Reviewed date:12/02/2024 05:16:05 PM Interpretation: Performing Lab: Notes/Report: [address] [address] Ultrasound Report Signed Patient: Sourav Corbett MR#: [id number] 49 : 1960 Acct:[id number] Age/Sex: 64 / M ADM Date: 12/02/24 Loc: .ED Attending Dr: Ordering Physician: Janay Romo Date of Service: 12/02/24 Procedure(s): US venous duplex LE LT Accession Number(s): [id number] cc: Abundio Lizarraga MD; aJnay Romo EXAMINATION: US LOWER EXTREMITY VEINS LIMITED FOLLOW UP LEFT HISTORY: swelling, pain, concern for DVT COMPARISON: Comparison is made with the prior examination dated 06/07/2022. TECHNIQUE: Duplex and color Doppler sonographic examination of the deep venous system of the left lower extremity was performed. FINDINGS: The common femoral, superficial femoral, and popliteal veins are patent demonstrating normal compressibility, spontaneous flow, and augmentation. There is a normal color and spectral Doppler waveform appearance of the visualized deep venous system above the knee. The posterior tibial and peroneal veins are patent. There are prominent lymph nodes in both inguinal regions. US/US venous duplex LE LT IMPRESSION: No evidence of acute DVT in the left lower extremity. Electronically signed by: Hamlet Wharton MD 12/02/2024 11:36 AM EDT Dictated By: Hamlet Wharton MD Signed By: <Electronically signed by Hamlet Wharton MD in OV> 12/02/24 1136 DD/ 1056 TD/TT: 12/02/24 110 Change Coordinator: [place] [address] Ultrasound Report Signed Patient: Sourav Corbett MR#: [id number] [birth year] : 1960 Acct:[id number] Age/Sex: 64 / M ADM Date: 12/02/24 Loc: HO.ED Attending Dr: Ordering Physician: Janay Romo Date of Service: 12/02/24 Procedure(s): US venous duplex LE LT Accession Number(s): [id number] cc: Abundio Lizarraga MD; Janay Romo EXAMINATION: US LOWE R EXTREMITY VEINS LIMITED FOLLOW UP LEFT HISTORY: swelling, pain, concern for DVT COMPARISON: Comparis on is made with the prior examination dated 06/07/2022. TECHNIQUE: Duplex an d color Doppler sonographic examination of the deep venous system o f the left lower extremity was performed. FINDINGS: The common femoral, superficial femoral, and popliteal veins are patent demonstrating normal compressibility, spontaneous flow, and augmentation. There is a normal color and spectral Doppler waveform appearance of the visualized deep venous system above the knee. The posterior tibial and peroneal veins are patent. There are prominent lymph nodes in both inguinal regions. __ US/US venous duplex LE LT IMPRESSION: No evidence of acute DVT in the left lower extremity. Electronically kerline d by: Hamlet Wharton MD 12/02/2024 11:36 AM EDT Dictated By: Hamlet Wharton MD Signed By: <Electronically signed by Hamlet Wharton MD in OV> 12/02/24 1136 DD/ 1056 TD/TT: 12/02/24 110 Change Coordinator: Reason For Referral No Information Medications Medication SIG (Take, Route, Frequency, Duration) Notes Start Date End Date Status Farxiga 10 MG TAKE 1 TABLET BY SAVI TH DAILY for 30 Active FreeStyle Lite w/Device TEST BLOOD SUGAR TWICE DAILY for 90 Active Clobetasol Propionate 0.05 % 1 application Externally Twice a day 02/28/2022 Active Furosemide 40 MG TAKE 1 TABLET BY SAVI TH EVERY DAY for 30 Active Zolpidem Tartrate 5 MG TAKE 1 TABLET BY MOUTH EVERY DAY AT BEDTIME for 30 02/17/2025 Active Cephalexin 500 MG 1 capsule Orally twi ce a day for 10 days 12/15/2024 Active diphenhydrAMINE HCl 25 MG 1 or 2 tabs Or ally twice a day for 10 days 08/06/2023 Active Alcohol Prep 70 % USE 1 PAD DAILY for 90 Active FreeStyle Lancets - USE TO TEST BLOOD SUGAR TWICE DAILY for 90 Active BD Pen Needle Short Ultrafine 31G X 8 MM USE 1 NEEDLE DAILY for 90 Active Omeprazole 20 MG TAKE 1 CAPSULE BY MOUTH EVERY DAY for 90 Active Levothyroxine Sodium 100 MCG TAKE 1 TABLET BY MOUTH EVERY DAY for 90 Active Doxycycline Hyclate 100 MG 1 capsule Ora lly twice for 10 days 12/15/2024 Active Rosuvastatin Calcium 20 MG TAKE 1 TABLET BY MOUTH EVERY DAY for 90 Active metFORMIN HCl 1000 MG TAKE 1 TABLET BY M OUT TWICE DAILY WITH A MEAL Active Ventolin HFA 108 (90 Base) MCG/ACT INHALE 1 PUFF BY MOUTH EVERY 4 HOURS NEEDED for 33 Active Lisinopril 40 MG TAKE 1 TABLET BY SAVI TH EVERY DAY for 90 Active Halobetasol Propionate 0.05 % APPLY TOPICALLY [...] Dupixent 200 MG/1.14ML as directed Subcutaneous Active Cyclobenzaprine HCl 5 MG 1 tablet as nee ded Orally Three times a day for 14 days 06/23/2019 Not-Taking Zolpidem Tartrate 5.000 TAKE 1 TABLET BY MOUTH EVERY NIGHT AT BEDTIME for 10 Not-Taking Colchicine 0.6 MG 1 tablet Orally 3 times a day for 30 day(s) Not-Taking Combivent 18-103 MCG/ACT INHALE 2 PUFFS BY MOUTH FOUR TIMES DAILY for 75 Not-Taking Basaglar KwikPen 100 UNIT/ML increase to 25 units per day Not-Taking FreeStyle Lite Test - USETO TEST BLOOD S UGAR TWICE DAILY for 100 Active Meclizine HCl 12.5 MG 1 tablet as needed Orally every 12 hrs for 30 days 08/21/2023 Not-Taking Iron 325mg QD Not-Takin g Celecoxib 200 MG TAKE 1 CAPSULE BY MOUTH EVERY DAY for 90 Active Lantus SoloStar 100 UNIT/ML 30units SQ Subcutaneous daily for 90 days 10/24/2024 Active Immunizations Vaccine Route Administration Date Status Comme nts Tetanus Unknown 04/04/2019 Administered SARS-COV-2 Moderna Unknown 11/09/2020 Administered SARS-COV-2 Moderna Unknown 12/07/2020 Administered SARS-COV-2 Pfizer Unknown 07/15/2021 Administered Flu Vaccine Unknown 05/09/2014 Refused PPSV23 (Pnemovax) Unknown 02/12/2015 Refused Flu Vaccine Unknown 05/14/2015 Refused Fluarix Quadrivalent Unknown 05/22/2017 Refused TDaP Unknown 06/16/2017 Refused PPSV23 (Pnemovax) Unknown 06/16/2017 Refused PPSV23 (Pnemovax) Unknown 03/08/2019 Refused TDaP Unknown 03/08/2019 Refused TDaP Unknown 04/04/2019 Refused Fluarix Quadrivalent Unknown 08/29/2019 Refused PPSV23 (Pnemovax) Unknown 08/29/2019 Refused Fluarix Quadrivalent Unknown 05/11/2020 Refused Fluarix Quadrivalent Unknown 05/14/2021 Refused Fluarix Quadrivalent - 150 Unknown 05/31/2024 Refused Social History Tobacco Use: Social History Observation Description Date Details (start date - stop date) Former Smoker NA - NA Tobacco Use/Smoking Question Answer Notes Patient is a former smoker How long has it been since y ou last smoked? > 10 years Additional Findings: Tobacco Non-User Fo rmer smoker, currently using no form of tobacco Alcohol Screen Question Answer Notes Did you have a drink contain ing alcohol in the past year? Yes How often did you have a dri nk containing alcohol in the past year? Monthly or less (1 point) How many drinks did you have on a typical day when you were drinking in the past year? 1 or 2 drinks (0 point) How often did you have 6 or more drinks on one occasion in the past year? 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) Active confirmed Problem 14849613 Essential hypert ension (I10) Active confirmed Problem Psoriasis (3637297) Psoriasis (L40.9) Active confirmed Problem 022631080 Acquired hypothy roidism (E03.9) Active confirmed Problem 17845467 Type 2 diabetes mellitus with diabetic neuropathy (E11.40) Active confirmed Problem 68657165 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) Active confirmed Problem 53034510 Iron deficiency anemia, unspecified iron deficiency anemia type (D50.9) Active confirmed Problem 54086743 Degeneration of cervical intervertebral disc (M50.30) Active confirmed Problem 236582558 Cerebral palsy (G80.9) Active confirm ed Problem 07847446 Cervical nerve r oot compression (G54.2) Active confirmed Problem Solitary pulmonary nodule (972874358) Incidental lung nodule, > 3mm and < 8mm (R91.1) Active confirmed Problem Stasis dermatitis (06878302) Stasis dermatitis (I83.10) Active confirmed Problem 967546747 Falling episodes (R29.6) Active confirmed Problem 434572905 Pure hypercholesterolemia (E78.00) Active confirmed Problem Acute asthma (875698819) Acute asthma (J45.909) Active confirmed Problem 519454674 Shoulder arthrit is (M19.019) Active confirmed Problem 841081198 Low serum testos terone level (E29.1) Active confirmed Problem 106904737 Arthritis of ank le (M19.079) Active confirmed Vital Signs Blood pressure diastolic 58 mm Hg 04/04/2025 Height 70.5 in 04/04/2025 Blood pressure systolic 122 mm Hg 04/04/2025 Weight 246 lbs 04/04/2025 BMI 34.79 kg/m2 04/04/2025 Encounters Encounter Location Date Provider Diagnosis Abundio Lizarraga MD [address] [place] [id number] 11/24/2024 Abundio Lizarraga Type 2 diabetes karan itus with diabetic neuropathy E11.40 and Pure hypercholesterolemia E78.00 Abundio Lizarraga MD [address] [place] [id number] 05/30/2025 Abundio Lizarraga Blood tests for rout ine general physical examination Z00.00 ; Iron deficiency anemia, unspecified iron deficiency anemia type D50.9 ; Essential hypertension I10 ; Type 2 diabetes mellitus with diabetic neuropathy E11.40 and Pure hypercholesterolemia E78.00 Abundio Lizarraga MD [address] [place] [id number] 05/31/2024 Abundio Lizarraga Type 2 diabetes karan itus with diabetic neuropathy E11.40 ; Chronic eczema L30.9 ; Iron deficiency anemia, unspecified iron deficiency anemia type D50.9 ; Essential hypertension I10 ; Pure hypercholesterolemia E78.00 ; Acute asthma J45.909 ; Depression screening Z13.31 and Acquired hypothyroidism E03.9 Abundio Lizarraga MD [address] [place] [id number] 09/02/2024 Abundio Lizarraga Type 2 diabetes karan itus with diabetic neuropathy E11.40 and Essential hypertension I10 Abundio Lizarraga MD [address] [place] [id number] 12/15/2024 Abundio Lizarraga Type 2 diabetes karan itus with diabetic neuropathy E11.40 and Cellulitis L03.90 Abundio Lizarraga MD [address] [place] [id number] 01/03/2025 Abundio Lizarraga Type 2 diabetes karan itus with diabetic neuropathy E11.40 ; Anemia D64.9 and Cellulitis L03.90 Abundio Lizarraga MD [address] [place] [id number] 04/04/2025 Abundio Lizarraga Type 2 diabetes karan itus with diabetic neuropathy E11.40 Abundio Lizarraga MD [address] [place] [address] [id number] 08/01/2024 Abundio Lizarraga MD [address] [place] [address] [id number] 10/24/2024 Abundio Lizarraga MD [address] [place] [id number] 10/25/2024 Abundio Lizarraga MD [address] [place] [address] [id number] 11/01/2024 Abundio Lizarraga Chronic eczema L30.9 Abundio Lizarraga MD [address] [place] [address] [id number] 12/05/2024 Abundio Lizarraga MD [address] [place] [id number] 12/13/2024 Abundio Lizarraga MD [address] [place] [address] [id number] 01/17/2025 Abundio Lizarraga Type 2 diabetes karan itus with diabetic neuropathy E11.40 Abundio Lizarraga MD [address] [place] [id number] 02/06/2025 Abundio Lizarraga Type 2 diabetes karan itus with diabetic neuropathy E11.40 Abundio Lizarraga MD [address] [place] [address] [id number] 04/18/2025 Abundio Lizarraga Acute asthma J45.909 Abundio Lizarraga MD [address] [place] [address] [id number] 05/19/2025 Abundio Lizarraga Type 2 diabetes karan itus with diabetic neuropathy E11.40 Assessments Encounter Date Diagnosis (ICD Code) Assessment Notes Treatment Notes Treatment Clinical Notes Section Notes 11/24/2024 Type 2 diabetes mellitus with diabetic neuropathy (ICD-10 - E11.40) 05/30/[address] ine general physical examination (ICD-10 - Z00.00) b 05/31/2024 Type 2 diabetes mellitus with diabetic neuropathy (ICD-10 - E11.40) needs to be more cautious with diet, will continue to monitor and will continue current regiment 05/31/2024 Chronic eczema (ICD- 10 - L30.9) stable, will continue current regiment 09/02/2024 Type 2 diabetes mellitus with diabetic neuropathy (ICD-10 - E11.40) stable, will cntinue current regiment 09/02/2024 Essential hypertensi on (ICD-10 - I10) stable, will continue current regiment 12/15/2024 Type 2 diabetes mellitus with diabetic neuropathy (ICD-10 - E11.40) 12/15/2024 Cellulitis (ICD-10 - L03.90) patient verbalized understanding of medication and directions for use 01/03/2025 Type 2 diabetes mellitus with diabetic neuropathy (ICD-10 - E11.40) 01/03/2025 Anemia (ICD-10 - D64.9) 04/04/2025 Type 2 diabetes mellitus with diabetic neuropathy (ICD-10 - E11.40) have increased the insulin by 5 units 11/01/2024 Chronic eczema (ICD- 10 - L30.9) 01/17/2025 Type 2 diabetes mellitus with diabetic neuropathy (ICD-10 - E11.40) 02/06/2025 Type 2 diabetes mellitus with diabetic neuropathy (ICD-10 - E11.40) 04/18/2025 Acute asthma (ICD-10 - J45.909) 05/19/2025 Type 2 diabetes mellitus with diabetic neuropathy (ICD-10 - E11.40) 11/24/2024 Pure hypercholesterolemia (ICD-10 - E78.00) 05/30/2025 Iron deficiency anem ia, unspecified iron deficiency anemia type (ICD-10 - D50.9) b 05/31/2024 Iron deficiency anem ia, unspecified iron deficiency anemia type (ICD-10 - D50.9) will continue to monitor 05/30/2025 Essential hypertensi on (ICD-10 - I10) b 05/31/2024 Essential hypertensi on (ICD-10 - I10) stable, will continue to monitor 01/03/2025 Cellulitis (ICD-10 - L03.90) will continue on present meds 05/30/2025 Type 2 diabetes mellitus with diabetic neuropathy (ICD-10 - E11.40) b 05/31/2024 Pure hypercholesterolemia (ICD-10 - E78.00) will continue current regiment 05/30/2025 Pure hypercholesterolemia (ICD-10 - E78.00) b 05/31/2024 Acute asthma (ICD-10 - J45.909) stable, will continue current regiment 05/31/2024 Depression screening (ICD-10 - Z13.31) negative screen 05/31/2024 Acquired hypothyroid ism (ICD-10 - E03.9) stable, will continue current regiment Plan Of Treatment Pending Test Test Name Order Date Electrocardiogram (EKG) 02/19/2017 Electrocardiogram (EKG) 02/26/2018 Glucose, finger stick 12/15/2024 CT ABD & PELVIS NO CONTRAST 09/13/2015 XR CHEST 2 VIEW PA & LAT 11/25/2022 Complete Blood Count Auto Diff 10/07/202 5 Complete Blood Count Auto Diff 5 Comprehensive [place]. Panel Fast IRON PROFILE 05/30/2025 IRON PROFILE 01/03/2025 Lipid Panel 05/30/2025 PSA,Total (Free>4and<10) 05/30/2025 Vitamin B12 and Folate 01/03/2025 Microalbumin, Random 05/30/2025 CA echo transthoracic complete 3 CA echo transthoracic complete 3 Hemoglobin A1c 05/30/2025 UA ClnCatch+Micro w/rflx Cult 05/30/2025 Future Test Test Name Order Date CT chest wo con 04/07/2023 Next Appt Details Provider Name:Abundio Polo Antoinemiley ier, 06/09/2025 09:30:00 AM, [address] [place] [address], [address], [phone], Provider Name:Abundio Andujar ier, 07/07/2025 10:45:00 AM, [address] [place] [address], [place] [address], [place], [place], [phone], Insurance Providers Payer Name Payer Address Payer Phone Subscriber Number Group Number Insured Name Patient Relationship to Insured Coverage Start Date Coverage End Date [facility] [employer] [address] [address] [place] [id number] Aric Sourav Self - patient is the insured [address] [address] [id number] Sourav Corbett Self - patient is the insured [employer] [address] [place] [address] [id number] Sourav Corbett Self - patient is the insured Medical (General) History Medical History History ICD Code colonoscopy 05/2010 due in 1 0 years; colonoscopy done on 10/05/17 repeat in 10 yrs w/ Dr Brothers Surgical History Surgery Date(Month/Year) laminectomy dr rousseau at [facility]
--- OUTSIDE RECORDS SUMMARY | 2025-05-30 11:12 | XMS_ITS | Patient Health Record ---
Author Organization [facility] Address [address] [place] [address] Care Team Providers Care Public Relations Account Executive Name Role Phone Abundio Lizarraga MD Primary Care Provider Hamlet Garcia Unavailable [phone] Allergies Allergen (clinical drug ingredient) Drug/Non Drug Allergy documented on EMR Reaction Allergy Type Onset Date Status seasonal (uncoded) Unknown Allergy A ctive Reason For Referral No Information Medications Medication SIG (Take, Route, Frequency, Duration) Notes Start Date End Date Status Levothroid 0.125mg A ctive Omeprazole 20mg Acti ve MiraLax (colon prep) 8.3 ounce ((238) grams mixed with Gatorade or Crystal Light orally begin at 5:00 p.m. the day before the procedure for 1 day 03/22/2017 Active metFORMIN HCl 500mg Active Dulcolax (colon prep) 5 MG take at 3:00 p.m and 7:00p.m. Orally two tablets twice a day for one day for 1 day 03/22/2017 Active Celecoxib Active Crestor 20mg Active Vitamin C 500mg Acti ve Iron 325mg Active Combivent 14.7gm Act petra traMADol HCl 50mg Ac tive Lisinopril 40mg Acti ve Travatan 2.5ml Activ e Problems Problem Type SNOMED Code ICD Code Onset Dates Problem Status W/U Status Risk Notes Problem Vitamin B deficiency (02535877) Deficiency of other specified B group vitamins (E53.8) Active confirmed Problem 48788496 Heme + stool (R19.5) Active confirmed Problem 170834834 B12 deficiency (E53.8) Active confirmed Plan Of Treatment Pending Test Test Name Order Date VITAMIN B12 AND FOLATE 08/31/2012 CBC w DIFF 05/08/2021 Vitamin B12 05/08/2021 Future Test Test Name Order Date COLONOSCOPY 03/10/2017 Insurance Providers Payer Name Payer Address Payer Phone Subscriber Number Group Number Insured Name Patient Relationship to Insured Coverage Start Date Coverage End Date MEDICARE OF [place] [address] [place] [address] [id number] ELDA CORBETT Self - patient is the insured MEDICAID OF [facility] [address] [place] [address] [id number] ELDA CORBETT Self - patient is the insured Medications Administered Medication Instructions Date of Administration Dosage Notes B12 03/28/2014 1000 ug B12 07/31/2014 1000 ug B12 11/29/2014 1000 ug B12 03/27/2015 1000 ug B-12 07/31/2015 1000 ug B-12 03/18/2016 1000 ug B-12 11/06/2016 1000 ug B-12 03/06/2017 1000 ug B-12 07/10/2017 1000 ug B-12 12/11/2017 1000 ug B-12 04/08/2018 1000 ug B-12 11/30/2018 1000 ug B12 05/19/2019 1000 ug B-12 09/22/2019 1000 ug B-12 02/01/2020 1000 ug B-12 05/31/2020 1000 ug B-12 10/09/2020 1000 ug B12 06/20/2021 1000 ug B-12 07/16/2021 1000 ug B-12 10/16/2021 1000 ug B12 02/14/2022 1000 ug B12 06/26/2022 1000 ug Medical (General) History Medical History History ICD Code Anemia in relation to iron deficiency an d B12 deficiency NIDDM Hypothyroidism Hypertension Hyperlipidemia Asthma Arthritis Diverticulosis Denies PR, stroke, nor kidney disease He had an upper endoscopy an d colonoscopy in May of 2010 for evaluation of his anemia, both of which were negative including normal duodenal biopsies-he also had submitted Hemoccult cards in 2010 that were negative. Sleep apnea--but not using CPAP Surgical History Surgery Date(Month/Year) Cervical spine disc surgery Left shoulder for spurs 2016 Right shoulder for spurs
== END 2025-05-30 09:46 | disposition home or self-care (01) ==
LOC: HO.LNP 09:45
PROVIDERS: Visit Provider Internal Medicine
DX: Z00.00 Encounter for general adult medical examination without abnormal findings (principal); D50.9 Iron deficiency anemia, unspecified; I10 Essential (primary) hypertension; E11.40 Type 2 diabetes mellitus with diabetic neuropathy, unspecified; E78.00 Pure hypercholesterolemia, unspecified; Z12.5 Encounter for screening for malignant neoplasm of prostate
CPT/HCPCS: 80053; 80061; 81001; 82043; 82570; 83036; 83540; 84153; 85025

== ENCOUNTER 2025-06-29 12:44 | Outpatient (REF) | payer MEDICARE, SELFPAY ==
--- OUTSIDE RECORDS SUMMARY | 2024-12-15 06:45 | XMS_ITS ---
Author Organization Abundio Lizarraga MD Address [address] [place], [place] [id number] Care Team Providers Care Drapery Seamstress Name Role Phone Abundio Lizarraga Primary Care Provider [phone] Allergies No Known Allergies Results Component Value Reference Range Notes Glucose, finger stick (Not y et reviewed by provider) Interpretation: Performing Lab: Notes/Report: Value 132 REASON FOR VISIT left foot issue Finished Doxycycline 100mg Bid x 7 days, CBACK CBC AUTO DIFF Medications Medication SIG (Take, Route, Frequency, Duration) Notes Start Date End Date Status Dupixent 200 MG/1.14ML as directed Subcutaneous Active Rosuvastatin Calcium 20 MG TAKE 1 TABLET BY MOUTH EVERY DAY Active Ventolin HFA 108 (90 Base) MCG/ACT INHALE ONE PUFF BY MOUTH EVERY 4 HOURS NEEDED Active Levothyroxine Sodium 100 MCG TAKE 1 TABLET BY MOUTH EVERY DAY Active traMADol HCl 50 MG TAKE 1 TABLET BY SAVI TH EVERY MORNING AND 2 TABLETS BY MOUTH EVERY EVENING for 90 06/06/2024 Active Omeprazole 20 MG TAKE 1 CAPSULE BY MOUTH EVERY DAY for 90 Active FreeStyle Lite Test - USETO TEST BLOOD S UGAR TWICE DAILY for 100 Active Celecoxib 200 MG TAKE 1 CAPSULE BY MOUTH EVERY DAY for 90 Active FreeStyle Lite w/Device TEST BLOOD SUGAR TWICE DAILY for 90 Active BD Pen Needle Short U/F 31G X 8 MM USE 1 NEEDLE DAILY for 90 Active Furosemide 40 MG TAKE 1 TABLET BY SAVI EVERY DAY for 30 Active FreeStyle Lancets - USE TO TEST BLOOD SUGAR TWICE DAILY for 90 Active diphenhydrAMINE HCl 25 MG 1 or 2 tabs Or ally twice a day for 10 days 08/06/2023 Active Clobetasol Propionate 0.05 % 1 application Externally Twice a day 02/28/2022 Active Alcohol Prep 70 % USE 1 PAD DAILY for 90 Active Colchicine 0.6 MG 1 tablet Orally 3 times a day for 30 day(s) Not-Taking Doxycycline Hyclate 100 MG 1 capsule Ora lly twice for 10 days 12/15/2024 Active Cephalexin 500 MG 1 capsule Orally twi ce a day for 10 days 12/15/2024 Active Cyclobenzaprine HCl 5 MG 1 tablet as nee ded Orally Three times a day for 14 days 06/23/2019 Not-Taking Combivent 18-103 MCG/ACT INHALE 2 PUFFS BY MOUTH FOUR TIMES DAILY for 75 Not-Taking Lisinopril 40 MG TAKE 1 TABLET BY SAVI EVERY DAY for 90 Active Zolpidem Tartrate 5 MG TAKE 1 TABLET BY MOUTH EVERY DAY AT BEDTIME for 30 11/13/2024 Active Iron 325mg QD Not-Takin g Meclizine HCl 12.5 MG 1 tablet as needed Orally every 12 hrs for 30 days 08/21/2023 Not-Taking Zolpidem Tartrate 5.000 TAKE 1 TABLET BY MOUTH EVERY NIGHT AT BEDTIME for 10 Not-Taking Lantus SoloStar 100 UNIT/ML 25 units SQ Subcutaneous 20 units daily for 90 days 10/24/2024 Active Halobetasol Propionate 0.05 % APPLY TOPICALLY TO THE AFFECTED AREA TWICE DAILY for 150 Active hydrOXYzine HCl 10 MG as directed Orally Once a day for 30 days Active Gabapentin 600 MG TAKE 1 TABLET BY SAVI TWICE DAILY for 90 Active metFORMIN HCl 1000 MG TAKE 1 TABLET BY M OUTH TWICE DAILY WITH A MEAL Active Basaglar KwikPen 100 UNIT/ML increase to 25 units per day Not-Taking Farxiga 10 MG TAKE 1 TABLET BY SAVI TH DAILY Active Vital Signs Blood pressure systolic 112 mm Hg 04/24/20 25 Blood pressure diastolic 50 mm Hg 025 Height 70.5 in 12/15/2024 Weight 240 lbs 12/15/2024 BMI 33.95 kg/m2 12/15/2024 Encounters Encounter Location Date Provider Diagnosis Abundio Lizarraga MD [address] [place] [phone] 12/15/2024 Abundio Lizarraga Type 2 diabetes mellitus with diabetic neuropathy E11.40 and Cellulitis L03.90 Assessments Encounter Date Diagnosis (ICD Code) Assessment Notes Treatment Notes Treatment Clinical Notes Section Notes 12/15/2024 Type 2 diabetes mellitus with diabetic neuropathy (ICD-10 - E11.40) 12/15/2024 Cellulitis (ICD-10 - L03.90) patient verbalized understanding of medication and directions for use Plan Of Treatment Medication Medication Name Sig Start Date Stop Date Notes Doxycycline Hyclate 100 MG 1 capsule Ora lly twice for 10 days 12/15/2024 Cephalexin 500 MG 1 capsule Orally twi ce a day for 10 days 12/15/2024 Treatment Notes Assessment Notes Cellulitis patient verbalized u nderstanding of medication and directions for use Pending Test Test Name Order Date Glucose, finger stick 12/15/2024 Next Appt Details Provider Name:Abundio tinoco, 07/07/2025 10:45:00 AM, [address] [place] [address], [phone], Provider Name:Abundio tinoco, 12/01/2025 07:30:00 AM, [address] [place] [address], [phone], Provider Name:Abundio tinoco, 12/08/2025 10:00:00 AM, [address] [place] [address], [phone], Provider Name:Abudnio tinoco, 06/05/2026 08:15:00 AM, [address] [place] [address], [phone], Provider Name:Abundio tinoco, 06/12/2026 10:30:00 AM, [address] [place] [address], [phone], Progress Notes * Kary CORBETToreDOB: 0 (64 yo M)Acc No.[id number]:12/15/2024 Patient: Sourav MENJIVAR Provider: Mayuri Lizarraga MD :1960 A ge:64 Y S ex:Male Date:12/15/2024 Address:[address] [place] [address], [place] [address], [id number] Subjective: * Chief Complaints: * l eft foot issue Finished Doxycycline 100mg Bid x 7 daysCBACK CBC AUTO DIFF * HPI: S ymptom(s): patient is a 64 yo male went to [facility] and put on doxycline for infection in foot. was working and is coming back after stopping antibiotic. * ROS: G eneral/Constitutional: Denies C hills. D enies F atigue. D enies F ever. D enies H eadache. E NT: Patient denies d ecreased sense of smell, any loss of taste, sore throat. D enies S ore throat. R espiratory: Denies C ough. D enies S hortness of breath at rest. D enies S hortness of breath with exertion. G astrointestinal: Denies D iarrhea. D enies N ausea. M usculoskeletal: Patient denies m uscle aches. P eripheral Vascular: Patient denies r ed and blue toes. * Medical History: * Surgical History: * Hospitalization/Major Diagno stic Procedure: * Medications: T akingFurosemide 40 MG Tablet TAKE 1 TABLET BY MOUTH EVERY DAY FreeStyle Lancets - Miscellaneous USE TO TEST BLOOD SUGAR TWICE DAILY diphenhydrAMINE HCl 25 MG Capsule 1 or 2 tabs Orally twice a day Clobetasol Propionate 0.05 % Cream 1 application Externally Twice a day Alcohol Prep 70 % Pad USE 1 PAD DAILY FreeStyle Lite w/Device Kit TEST BLOOD SUGAR TWICE DAILY BD Pen Needle Short U/F 31G X 8 MM Miscellaneous USE 1 NEEDLE DAILY Omeprazole 20 MG Capsule Delayed Release TAKE 1 CAPSULE BY MOUTH EVERY DAY FreeStyle Lite Test - Strip USETO TEST BLOOD SUGAR TWICE DAILY Celecoxib 200 MG Capsule TAKE 1 CAPSULE BY MOUTH EVERY DAY Dupixent 200 MG/1.14ML Solution Prefilled Syringe as directed Subcutaneous Rosuvastatin Calcium 20 MG Tablet TAKE 1 TABLET BY MOUTH EVERY DAY Ventolin HFA 108 (90 Base) MCG/ACT Aerosol Solution INHALE ONE PUFF BY MOUTH EVERY 4 HOURS NEEDED Levothyroxine Sodium 100 MCG Tablet TAKE 1 TABLET BY MOUTH EVERY DAY traMADol HCl 50 MG Tablet TAKE 1 TABLET BY MOUTH EVERY MORNING AND 2 TABLETS BY MOUTH EVERY EVENING Farxiga 10 MG Tablet TAKE 1 TABLET BY MOUTH DAILY metFORMIN HCl 1000 MG Tablet TAKE 1 TABLET BY MOUTH TWICE DAILY WITH A MEAL Lantus SoloStar 100 UNIT/ML Solution Pen-injector 25 units SQ Subcutaneous 20 units daily Halobetasol Propionate 0.05 % Cream APPLY TOPICALLY TO THE AFFECTED AREA TWICE DAILY hydrOXYzine HCl 10 MG Tablet as directed Orally Once a day Gabapentin 600 MG Tablet TAKE 1 TABLET BY MOUTH TWICE DAILY Lisinopril 40 MG Tablet TAKE 1 TABLET BY MOUTH EVERY DAY Zolpidem Tartrate 5 MG Tablet TAKE 1 TABLET BY MOUTH EVERY DAY AT BEDTIME Taking Furosemide 40 MG Tablet TAKE 1 TABLET BY MOUTH EVERY DAY Taking FreeStyle Lancets - Miscellaneous USE TO TEST BLOOD SUGAR TWICE DAILY Taking diphenhydrAMINE HCl 25 MG Capsule 1 or 2 tabs Orally twice a day Taking Clobetasol Propionate 0.05 % Cream 1 application Externally Twice a day Taking Alcohol Prep 70 % Pad USE 1 PAD DAILY Taking FreeStyle Lite w/Device Kit TEST BLOOD SUGAR TWICE DAILY Taking BD Pen Needle Short U/F 31G X 8 MM Miscellaneous USE 1 NEEDLE DAILY Taking Omeprazole 20 MG Capsule Delayed Release TAKE 1 CAPSULE BY MOUTH EVERY DAY Taking FreeStyle Lite Test - Strip USETO TEST BLOOD SUGAR TWICE DAILY Taking Celecoxib 200 MG Capsule TAKE 1 CAPSULE BY MOUTH EVERY DAY Taking Dupixent 200 MG/1.14ML Solution Prefilled Syringe as directed Subcutaneous Taking Rosuvastatin Calcium 20 MG Tablet TAKE 1 TABLET BY MOUTH EVERY DAY Taking Ventolin HFA 108 (90 Base) MCG/ACT Aerosol Solution INHALE ONE PUFF BY MOUTH EVERY 4 HOURS NEEDED Taking Levothyroxine Sodium 100 MCG Tablet TAKE 1 TABLET BY MOUTH EVERY DAY Taking traMADol HCl 50 MG Tablet TAKE 1 TABLET BY MOUTH EVERY MORNING AND 2 TABLETS BY MOUTH EVERY EVENING Taking Farxiga 10 MG Tablet TAKE 1 TABLET BY MOUTH DAILY Taking metFORMIN HCl 1000 MG Tablet TAKE 1 TABLET BY MOUTH TWICE DAILY WITH A MEAL Taking Lantus SoloStar 100 UNIT/ML Solution Pen-injector 25 units SQ Subcutaneous 20 units daily Taking Halobetasol Propionate 0.05 % Cream APPLY TOPICALLY TO THE AFFECTED AREA TWICE DAILY Taking hydrOXYzine HCl 10 MG Tablet as directed Orally Once a day Taking Gabapentin 600 MG Tablet TAKE 1 TABLET BY MOUTH TWICE DAILY Taking Lisinopril 40 MG Tablet TAKE 1 TABLET BY MOUTH EVERY DAY Taking Zolpidem Tartrate 5 MG Tablet TAKE 1 TABLET BY MOUTH EVERY DAY AT BEDTIME Not-Taking/PRNBasaglar KwikPen 100 UNIT/ML Solution Pen-injector increase to 25 units per day Iron 325mg QD Meclizine HCl 12.5 MG Tablet 1 tablet as needed Orally every 12 hrs Zolpidem Tartrate 5.000 Tablet TAKE 1 TABLET BY MOUTH EVERY NIGHT AT BEDTIME Cyclobenzaprine HCl 5 MG Tablet 1 tablet as needed Orally Three times a day Combivent 18-103 MCG/ACT Aerosol INHALE 2 PUFFS BY MOUTH FOUR TIMES DAILY Colchicine 0.6 MG Tablet 1 tablet Orally 3 times a day Medication List reviewed and reconciled with the patientNot-Taking/PRN Basaglar KwikPen 100 UNIT/ML Solution Pen- injector increase to 25 units per day Not-Taking/PRN Iron 325mg QD Not-Taking/PRN Meclizine HCl 12.5 MG Tablet 1 tablet as needed Orally every 12 hrs Not-Taking/PRN Zolpidem Tartrate 5.000 Tablet TAKE 1 TABLET BY MOUTH EVERY NIGHT AT BEDTIME Not- Taking/PRN Cyclobenzaprine HCl 5 MG Tablet 1 tablet as needed Orally Three times a day Not-Taking/PRN Combivent 18-103 MCG/ACT Aerosol INHALE 2 PUFFS BY MOUTH FOUR TIMES DAILY Not-Taking/PRN Colchicine 0.6 MG Tablet 1 tablet Orally 3 times a day Medication List reviewed and reconciled with the patient * Allergies: N .K.D.A.yes[Allergies Verified] Objective: * Vitals: H t: 70.5, Wt: 240, BMI:33.95, BP:112/50, Wt-k.86. * Examination: G eneral Examination: GENERAL APPEARANCE: a lert, well hydrated, in no distress.? HEAD: n ormocephalic. SKIN: a bnormal with erythema of foot left. HEART: n o murmurs, rubs, gallops, regular rate and rhythm.? LUNGS: n o wheezes, rales, rhonchi, good air movement, clear to auscultation bilaterally. Assessment: * Assessment: 1. T ype 2 diabetes mellitus with diabetic neuropathy - E11.40 (Primary) 2 .?Cellulitis - L03.90 Plan: * Treatment: Value Reference Range V alue 132 2.?Cellulitis? Start Doxycycline Hyclate Capsule, 100 MG, 1 capsule, Orally, twice, 10 days, 20;?Start Cephalexin Capsule, 500 MG, 1 capsule, Orally, twice a day, 10 days, 20 Capsule.?? Notes: patient verbalized understanding of medication and directions for use?? * Procedure Codes: 8 2947 ASSAY, GLUCOSE, BLOOD QUANT, Modifiers: QW * * Sign off status: Completed true * Provider: Mayuri Lizarraga MD Date: 0 12/15/2024 Generated for Richelle danielle/Barb/eTransmitting on: 08/29/2024 03:39 PM EST History and Physical Notes * HPI (History of Present Illness) Category Sub-Category Detail Notes Category Not es Symptom(s) patient is a 64 yo male went to [facility] and put on doxycline for infection in foot. was working and is coming back after stopping antibiotic Examination Category Sub-Category Detail Notes Category Not es General Examination GENERAL APPEARANCE: alert, w ell hydrated, in no distress HEAD: normocephalic HEART: no murmurs, rubs, ga llops, regular rate and rhythm LUNGS: no wheezes, rales, r honchi, good air movement, clear to auscultation bilaterally SKIN: abnormal with erythe ma of foot left
--- OUTSIDE RECORDS SUMMARY | 2025-01-17 04:00 | XMS_ITS ---
Author Organization Abundio Lizarraga MD Address [address] [place] [phone] Care Team Providers Care Glassblower Name Role Phone Abundio Lizarraga Primary Care Provider [phone] Medications Medication SIG (Take, Route, Frequency, Duration) Notes Start Date End Date Status Cephalexin 500 MG 1 capsule Orally twi ce a day for 10 days 12/15/2024 Active Doxycycline Hyclate 100 MG 1 capsule Ora lly twice for 10 days 12/15/2024 Active Encounters Encounter Location Date Provider Diagnosis Abundio Lizarraga MD [address] [place] [phone] 01/17/2025 Abundio Lizarraga Type 2 diabetes mellitus with diabetic neuropathy E11.40 Assessments Encounter Date Diagnosis (ICD Code) Assessment Notes Treatment Notes Treatment Clinical Notes Section Notes 01/17/2025 Type 2 diabetes mellitus with diabetic neuropathy (ICD-10 - E11.40) Plan Of Treatment Medication Medication Name Sig Start Date Stop Date Notes Cephalexin 500 MG 1 capsule Orally twi ce a day for 10 days 12/15/2024 Doxycycline Hyclate 100 MG 1 capsule Ora lly twice for 10 days 12/15/2024 Next Appt Details Provider Name:Abundio Andujar ier, 07/07/2025 10:45:00 AM, [address] [place] [address], Suite [facility], [place], [place], [phone], Provider Name:Abundio Andujar ier, 12/01/2025 07:30:00 AM, [address] [place] [address], Suite [facility], [place], [place], [phone], Provider Name:Abundio Andujar ier, 12/08/2025 10:00:00 AM, [address] [place] [address], Suite [facility], [place], [place], [phone], Provider Name:Abundio Andujar ier, 06/05/2026 08:15:00 AM, [address] [place] [address], Suite [facility], [place], [place], [phone], Provider Name:Abundio Andujar ier, 06/12/2026 10:30:00 AM, [address] [place] [address], [place] [address], [place], [place], [phone], Progress Notes * Ketan CORBETTOB: 0 (64 yo M)Acc No.[id number]:01/17/2025 Patient: Maikol PIÑASourav :1960 A ge:64 Y S ex:Male Address:[address] [place] [id number] * Refills Continue Doxycycline Hyclate Capsule, 100 MG, Orally, 20, 1 capsule, twice, 10 days Continue Cephalexin Capsule, 500 MG, Orally, 20 Capsule, 1 capsule, twice a day, 10 days * true * Date: Generated for Printi ng/Faxing/eTransmitting on: 08/29/2024 03:40 PM EST
--- OUTSIDE RECORDS SUMMARY | 2025-02-06 06:19 | XMS_ITS ---
Author Organization Abundio Lizarraga MD Address [address] [place] [phone] Care Team Providers Care Child Nutrition Assistant Name Role Phone Abundio Lizarraga Primary Care Provider REASON FOR VISIT RF Medications Medication SIG (Take, Route, Frequency, Duration) Notes Start Date End Date Status Cephalexin 500 MG 1 capsule Orally twi ce a day for 10 days 12/15/2024 Active Doxycycline Hyclate 100 MG 1 capsule Ora lly twice for 10 days 12/15/2024 Active Encounters Encounter Location Date Provider Diagnosis Abundio Lizarraga MD [address] [place] [phone] 02/06/2025 Abundio Lizarraga Type 2 diabetes mellitus with diabetic neuropathy E11.40 Assessments Encounter Date Diagnosis (ICD Code) Assessment Notes Treatment Notes Treatment Clinical Notes Section Notes 02/06/2025 Type 2 diabetes mellitus with diabetic neuropathy (ICD-10 - E11.40) Plan Of Treatment Medication Medication Name Sig Start Date Stop Date Notes Cephalexin 500 MG 1 capsule Orally twi ce a day for 10 days 12/15/2024 Doxycycline Hyclate 100 MG 1 capsule Ora lly twice for 10 days 12/15/2024 Next Appt Details Provider Name:Abundio Andujar ier, 07/07/2025 10:45:00 AM, [address] [place] [address], Suite [facility], [place], [place], [phone], Provider Name:Abundio Andujar ier, 12/01/2025 07:30:00 AM, [address] [place] [address], [address] [facility], [place], [place], [phone], Provider Name:Abundio Andujar ier, 12/08/2025 10:00:00 AM, [address] [place] [address], [address] [facility], [place], [place], [phone], Provider Name:Abundio Andujar ier, 06/05/2026 08:15:00 AM, [address] [place] [address], Suite [facility], [place], [place], [phone], Provider Name:Abundio Andujar ier, 06/12/2026 10:30:00 AM, [address] [place] [address], [place] [address], [place], [place], [phone], Progress Notes * Ketan CORBETTOB: 0 (64 yo M)Acc No.[id number]:02/06/2025 Patient: Sourav MENJIVAR :1960 A ge:64 Y S ex:Male Address:[address] [place] [address], [place] [address] * Refills Refill Doxycycline Hyclate Capsule, 100 MG, Orally, 20, 1 capsule, twice, 10 days Refill Cephalexin Capsule, 500 MG, Orally, 20 Capsule, 1 capsule, twice a day, 10 days * true * Date: Generated for Xavieri lolis/Elizabethg/eTransmitting on: 08/29/2024 03:38 PM EST
--- OUTSIDE RECORDS SUMMARY | 2025-04-04 06:15 | XMS_ITS ---
Author Organization Abundio Lizarraga MD Address [address] [place], [place] [phone] Care Team Providers Care Marketing Programs Specialist Name Role Phone Abundio Lizarraga Primary Care Provider [phone] Allergies No Known Allergies Results Component Value Reference Range Notes Hemoglobin A1c Reviewed date:04/04/2025 11:00:03 AM Interpretation: Performing Lab: Notes/Report: Hemoglobin A1c 8.6 Glucose, finger stick Reviewed date:04/04/2025 10:54:18 AM Interpretation: Performing Lab: Notes/Report: Value 144 REASON FOR VISIT 3 month Medications Medication SIG (Take, Route, Frequency, Duration) Notes Start Date End Date Status Levothyroxine Sodium 100 MCG TAKE 1 TABLET BY MOUTH EVERY DAY Active Halobetasol Propionate 0.05 % APPLY TOPICALLY TO THE AFFECTED AREA TWICE DAILY for 150 Active traMADol HCl 50 MG TAKE 1 TABLET BY SAVI TH EVERY MORNING AND 2 TABLETS BY MOUTH EVERY EVENING for 90 06/06/2024 Active Gabapentin 600 MG TAKE 1 TABLET BY SAVI TH TWICE DAILY for 90 Active hydrOXYzine HCl 10 MG as directed Orally Once a day for 30 days Active Dupixent 200 MG/1.14ML as directed Subcutaneous Active Celecoxib 200 MG TAKE 1 CAPSULE BY MOUTH EVERY DAY for 90 Active Ventolin HFA 108 (90 Base) MCG/ACT INHALE ONE PUFF BY MOUTH EVERY 4 HOURS NEEDED Active FreeStyle Lite Test - USETO TEST BLOOD S UGAR TWICE DAILY for 100 Active FreeStyle Lite w/Device TEST BLOOD SUGAR TWICE DAILY for 90 Active Colchicine 0.6 MG 1 tablet Orally 3 times a day for 30 day(s) Not-Taking Clobetasol Propionate 0.05 % 1 application Externally Twice a day 02/28/2022 Active Furosemide 40 MG TAKE 1 TABLET BY SAVI TH EVERY DAY for 30 Active diphenhydrAMINE HCl 25 MG 1 or 2 tabs Or ally twice a day for 10 days 08/06/2023 Active FreeStyle Lancets - USE TO TEST BLOOD SUGAR TWICE DAILY for 90 Active Cyclobenzaprine HCl 5 MG 1 tablet as nee ded Orally Three times a day for 14 days 06/23/2019 Not-Taking Zolpidem Tartrate 5.000 TAKE 1 TABLET BY MOUTH EVERY NIGHT AT BEDTIME for 10 Not-Taking Combivent 18-103 MCG/ACT INHALE 2 PUFFS BY MOUTH FOUR TIMES DAILY for 75 Not-Taking Meclizine HCl 12.5 MG 1 tablet as needed Orally every 12 hrs for 30 days 08/21/2023 Not-Taking Iron 325mg QD Not-Takin g Basaglar KwikPen 100 UNIT/ML increase to 25 units per day Not-Taking Zolpidem Tartrate 5 MG TAKE 1 TABLET BY MOUTH EVERY DAY AT BEDTIME for 30 02/17/2025 Active Cephalexin 500 MG 1 capsule Orally twi ce a day for 10 days 12/15/2024 Active Alcohol Prep 70 % USE 1 PAD DAILY for Active BD Pen Needle Short Ultrafine 31G X 8 MM USE 1 NEEDLE DAILY for 90 Active Omeprazole 20 MG TAKE 1 CAPSULE BY MOUTH EVERY DAY for 90 Active Lantus SoloStar 100 UNIT/ML 25 units SQ Subcutaneous 20 units daily 10/24/2024 Active Doxycycline Hyclate 100 MG 1 capsule Ora lly twice for 10 days 12/15/2024 Active Rosuvastatin Calcium 20 MG TAKE 1 TABLET BY MOUTH EVERY DAY for 90 Active metFORMIN HCl 1000 MG TAKE 1 TABLET BY M OUTH TWICE DAILY WITH A MEAL Active Farxiga 10 MG TAKE 1 TABLET BY SAVI TH DAILY Active Lisinopril 40 MG TAKE 1 TABLET BY SAVI TH EVERY DAY for 90 Active Vital Signs Blood pressure systolic 122 mm Hg 04/04/20 25 Blood pressure diastolic 58 mm Hg 025 Height 70.5 in 04/04/2025 Weight 246 lbs 04/04/2025 BMI 34.79 kg/m2 04/04/2025 Encounters Encounter Location Date Provider Diagnosis Abundio Lizarraga MD [address] [place] [phone] 04/04/2025 Abundio Lizarraga Type 2 diabetes mellitus with diabetic neuropathy E11.40 Assessments Encounter Date Diagnosis (ICD Code) Assessment Notes Treatment Notes Treatment Clinical Notes Section Notes 04/04/2025 Type 2 diabetes mellitus with diabetic neuropathy (ICD-10 - E11.40) have increased the insulin by 5 units Plan Of Treatment Treatment Notes Assessment Notes Type 2 diabetes mellitus wit h diabetic neuropathy have increased the insulin by 5 units Next Appt Details Follow Up: 3 Months, Reason: Provider Name:Abundio tinoco, 07/07/2025 10:45:00 AM, [address] [place] [address], [phone], Provider Name:Abundio tinoco, 12/01/2025 07:30:00 AM, [address] [place] [address], [phone], Provider Name:Abundio tinoco, 12/08/2025 10:00:00 AM, [address] [place] [address], [phone], Provider Name:Abundio tinoco, 06/05/2026 08:15:00 AM, [address] [place] [address], [phone], Provider Name:Abundio tinoco, 06/12/2026 10:30:00 AM, [address] [place] [address], [phone], Progress Notes * Ketan CORBETTOB: 0 (64 yo M)Acc No.[id number]:04/04/2025 Progress Notes Patient: Sourav MENJIVAR Provider: Mayuri Lizarraga MD :1960 A ge:64 Y S ex:Male Date:04/04/2025 Address:[address] [place] [address], [place] [address], [place] [id number] Subjective: * Chief Complaints: * 3 month * HPI: S ymptom(s): patient is a 64 yo male here for 3 month follow up visit/ having some increasing pain in legs. but is out walking all the time. cerebral palsy is causing more pain. * ROS: G eneral/Constitutional: Denies C hills. D enies F atigue. D enies F ever. D enies H eadache. E NT: Denies S ore throat. E ndocrine: Denies D ifficulty sleeping. D enies D izziness.?Denies E xcessive sweating. A dmits E xcessive thirst. A dmits F requent urination. R espiratory: Denies C ough. D enies S hortness of breath at rest. D enies S hortness of breath with exertion. G astrointestinal: Denies D iarrhea. D enies N ausea. * Medical History: * Surgical History: * Hospitalization/Major Diagno stic Procedure: * Medications: T akingFurosemide 40 MG Tablet TAKE 1 TABLET BY MOUTH EVERY DAY FreeStyle Lancets - Miscellaneous USE TO TEST BLOOD SUGAR TWICE DAILY diphenhydrAMINE HCl 25 MG Capsule 1 or 2 tabs Orally twice a day Clobetasol Propionate 0.05 % Cream 1 application Externally Twice a day FreeStyle Lite w/Device Kit TEST BLOOD SUGAR TWICE DAILY FreeStyle Lite Test - Strip USETO TEST BLOOD SUGAR TWICE DAILY Celecoxib 200 MG Capsule TAKE 1 CAPSULE BY MOUTH EVERY DAY Dupixent 200 MG/1.14ML Solution Prefilled Syringe as directed Subcutaneous Ventolin HFA 108 (90 Base) MCG/ACT Aerosol Solution INHALE ONE PUFF BY MOUTH EVERY 4 HOURS NEEDED Levothyroxine Sodium 100 MCG Tablet TAKE 1 TABLET BY MOUTH EVERY DAY traMADol HCl 50 MG Tablet TAKE 1 TABLET BY MOUTH EVERY MORNING AND 2 TABLETS BY MOUTH EVERY EVENING Halobetasol Propionate 0.05 % Cream APPLY TOPICALLY TO THE AFFECTED AREA TWICE DAILY hydrOXYzine HCl 10 MG Tablet as directed Orally Once a day Gabapentin 600 MG Tablet TAKE 1 TABLET BY MOUTH TWICE DAILY Lisinopril 40 MG Tablet TAKE 1 TABLET BY MOUTH EVERY DAY Farxiga 10 MG Tablet TAKE 1 TABLET BY MOUTH DAILY metFORMIN HCl 1000 MG Tablet TAKE 1 TABLET BY MOUTH TWICE DAILY WITH A MEAL Lantus SoloStar 100 UNIT/ML Solution Pen-injector 25 units SQ Subcutaneous 20 units daily Omeprazole 20 MG Capsule Delayed Release TAKE 1 CAPSULE BY MOUTH EVERY DAY Rosuvastatin Calcium 20 MG Tablet TAKE 1 TABLET BY MOUTH EVERY DAY Doxycycline Hyclate 100 MG Capsule 1 capsule Orally twice Cephalexin 500 MG Capsule 1 capsule Orally twice a day Zolpidem Tartrate 5 MG Tablet TAKE 1 TABLET BY MOUTH EVERY DAY AT BEDTIME BD Pen Needle Short Ultrafine 31G X 8 MM Miscellaneous USE 1 NEEDLE DAILY Alcohol Prep 70 % Pad USE 1 PAD DAILY Taking Furosemide 40 MG Tablet TAKE 1 TABLET BY MOUTH EVERY DAY Taking FreeStyle Lancets - Miscellaneous USE TO TEST BLOOD SUGAR TWICE DAILY Taking diphenhydrAMINE HCl 25 MG Capsule 1 or 2 tabs Orally twice a day Taking Clobetasol Propionate 0.05 % Cream 1 application Externally Twice a day Taking FreeStyle Lite w/Device Kit TEST BLOOD SUGAR TWICE DAILY Taking FreeStyle Lite Test - Strip USETO TEST BLOOD SUGAR TWICE DAILY Taking Celecoxib 200 MG Capsule TAKE 1 CAPSULE BY MOUTH EVERY DAY Taking Dupixent 200 MG/1.14ML Solution Prefilled Syringe as directed Subcutaneous Taking Ventolin HFA 108 (90 Base) MCG/ACT Aerosol Solution INHALE ONE PUFF BY MOUTH EVERY 4 HOURS NEEDED Taking Levothyroxine Sodium 100 MCG Tablet TAKE 1 TABLET BY MOUTH EVERY DAY Taking traMADol HCl 50 MG Tablet TAKE 1 TABLET BY MOUTH EVERY MORNING AND 2 TABLETS BY MOUTH EVERY EVENING Taking Halobetasol Propionate 0.05 % Cream APPLY TOPICALLY TO THE AFFECTED AREA TWICE DAILY Taking hydrOXYzine HCl 10 MG Tablet as directed Orally Once a day Taking Gabapentin 600 MG Tablet TAKE 1 TABLET BY MOUTH TWICE DAILY Taking Lisinopril 40 MG Tablet TAKE 1 TABLET BY MOUTH EVERY DAY Taking Farxiga 10 MG Tablet TAKE 1 TABLET BY MOUTH DAILY Taking metFORMIN HCl 1000 MG Tablet TAKE 1 TABLET BY MOUTH TWICE DAILY WITH A MEAL Taking Lantus SoloStar 100 UNIT/ML Solution Pen-injector 25 units SQ Subcutaneous 20 units daily Taking Omeprazole 20 MG Capsule Delayed Release TAKE 1 CAPSULE BY MOUTH EVERY DAY Taking Rosuvastatin Calcium 20 MG Tablet TAKE 1 TABLET BY MOUTH EVERY DAY Taking Doxycycline Hyclate 100 MG Capsule 1 capsule Orally twice Taking Cephalexin 500 MG Capsule 1 capsule Orally twice a day Taking Zolpidem Tartrate 5 MG Tablet TAKE 1 TABLET BY MOUTH EVERY DAY AT BEDTIME Taking BD Pen Needle Short Ultrafine 31G X 8 MM Miscellaneous USE 1 NEEDLE DAILY Taking Alcohol Prep 70 % Pad USE 1 PAD DAILY Not-Taking/PRNBasaglar KwikPen 100 UNIT/ML Solution Pen-injector increase [...] the patientNot-Taking/PRN Basaglar KwikPen 100 UNIT/ML Solution Pen-injector increase to 25 units per day Not-Taking/PRN Iron 325mg QD Not-Taking/PRN Meclizine HCl 12.5 MG Tablet 1 tablet as needed Orally every 12 hrs Not-Taking/PRN Zolpidem Tartrate 5.000 Tablet TAKE 1 TABLET BY MOUTH EVERY NIGHT AT BEDTIME Not-Taking/PRN Cyclobenzaprine HCl 5 MG Tablet 1 tablet as needed Orally Three times a day Not-Taking/PRN Combivent 18-103 MCG/ACT Aerosol INHALE 2 PUFFS BY MOUTH FOUR TIMES DAILY Not-Taking/PRN Colchicine 0.6 MG Tablet 1 tablet Orally 3 times a day Medication List reviewed and reconciled with the patient * Allergies: N .K.D.A.yes[Allergies Verified] Objective: * Vitals: H t: 70.5, Wt: 246, BMI:34.79, BP:122/58, Wt-k.58. * Examination: G eneral Examination: GENERAL APPEARANCE: a lert, well hydrated, in no distress.? HEAD: n ormocephalic. SKIN: g ood turgor, warm and dry. HEART: n o murmurs, rubs, gallops, regular rate and rhythm.? LUNGS: n o wheezes, rales, rhonchi, good air movement, clear to auscultation bilaterally. EXTREMITIES: n o edema. Assessment: * Assessment: 1. T ype 2 diabetes mellitus with diabetic neuropathy - E11.40 (Primary) Plan: * Treatment: Value Reference Range H emoglobin A1c 8.6 ?LAB: Glucose, finger stick (Collection Date & Time - 04/04/2025)* Value Reference Range V alue 144 Notes: have increased the insulin by 5 units?? * Procedure Codes: 8 2947 ASSAY, GLUCOSE, BLOOD QUANT, Modifiers: QW 78417 GLYCATED HEMOGLOBIN TEST, Modifiers: QW * Follow Up: 3 Months * * Sign off status: Completed true * Provider: Mayuri Lizarraga MD Date: 0 04/04/2025 Generated for Richelle danielle/Barb/eTransmitting on: 1 08/29/2024 03:41 PM EST History and Physical Notes * HPI (History of Present Illness) Category Sub-Category Detail Notes Category Not es Symptom(s) patient is a 64 yo male here for 3 month follow up visit/ having some increasing pain in legs. but is out walking all the time. cerebral palsy is causing more pain Examination Category Sub-Category Detail Notes Category Not es General Examination GENERAL APPEARANCE: alert, w ell hydrated, in no distress HEAD: normocephalic HEART: no murmurs, rubs, ga llops, regular rate and rhythm LUNGS: no wheezes, rales, r honchi, good air movement, clear to auscultation bilaterally SKIN: good turgor, warm an d dry EXTREMITIES: no edema
--- OUTSIDE RECORDS SUMMARY | 2025-04-18 03:05 | XMS_ITS ---
Author Organization Abundio Lizarraga MD Address [address] [place] [phone] Care Team Providers Care Waste Collection Driver Name Role Phone Abundio Lizarraga Primary Care Provider [phone] REASON FOR VISIT RF Ventolin Medications Medication SIG (Take, Route, Frequency, Duration) Notes Start Date End Date Status Ventolin HFA 108 (90 Base) MCG/ACT INHALE ONE PUFF BY MOUTH EVERY 4 HOURS NEEDED every 4 hrs for 30 days Active Encounters Encounter Location Date Provider Diagnosis Abundio Lizarraga MD [address] [place] [phone] 04/18/2025 Abundio Lizarraga Acute asthma J45.909 Assessments Encounter Date Diagnosis (ICD Code) Assessment Notes Treatment Notes Treatment Clinical Notes Section Notes 04/18/2025 Acute asthma (ICD-10 - J45.909) Plan Of Treatment Medication Medication Name Sig Start Date Stop Date Notes Ventolin HFA 108 (90 Base) MCG/ACT INHALE ONE PUFF BY MOUTH EVERY 4 HOURS NEEDED every 4 hrs for 30 days Next Appt Details Provider Name:Abundio tinoco, 07/07/2025 10:45:00 AM, [address] [facility], [address], [place], [place], [phone], Provider Name:Abundio Andujar ier, 12/01/2025 07:30:00 AM, [address] [place] [address], [address], [place], [phone], Provider Name:Abundio Andujar ier, 12/08/2025 10:00:00 AM, [address] [place] [address], [address] [facility], [place], [place], [phone], Provider Name:Abundio Andujar ier, 06/05/2026 08:15:00 AM, [address] [place] [address], [address] [facility], [place], [place], [phone], Provider Name:Abundio Andujar ier, 06/12/2026 10:30:00 AM, [address] [place] [address], Suite [facility], [place], [place], [phone], Progress Notes * Ketan CORBETTOB: 0 (65 yo M)Acc No.[id number]:04/18/2025 Patient: Maikol PIÑA Sourav :1960 A ge:65 Y S ex:Male Address:[address] [place] [address] * Refills Refill Ventolin HFA Aerosol Solution, 108 (90 Base) MCG/ACT, 1, INHALE ONE PUFF BY MOUTH EVERY 4 HOURS NEEDED, every 4 hrs, 30 days, Refills=3 * true * Date: Generated for Richelle danielle/Barb/eTransmitting on: 08/29/2024 03:38 PM EST
--- OUTSIDE RECORDS SUMMARY | 2025-05-19 04:09 | XMS_ITS ---
Author Organization Abundio Lizarraga MD Address [address] [place] [phone] Care Team Providers Care Car Worker Helper Name Role Phone Abunido Lizarraga Primary Care Provider REASON FOR VISIT Increase Lantus Medications Medication SIG (Take, Route, Frequency, Duration) Notes Start Date End Date Status Lantus SoloStar 100 UNIT/ML 30units SQ Subcutaneous daily for 90 days 10/24/2024 Active Encounters Encounter Location Date Provider Diagnosis Abundio Lizarraga MD [address] [place] [phone] 05/19/2025 Abundio Lizarraga Type 2 diabetes mellitus with diabetic neuropathy E11.40 Assessments Encounter Date Diagnosis (ICD Code) Assessment Notes Treatment Notes Treatment Clinical Notes Section Notes 05/19/2025 Type 2 diabetes mellitus with diabetic neuropathy (ICD-10 - E11.40) Plan Of Treatment Medication Medication Name Sig Start Date Stop Date Notes Lantus SoloStar 100 UNIT/ML 30units SQ S ubcutaneous daily for 90 days 10/24/2024 Next Appt Details Provider Name:Abundio tinoco, 07/07/2025 10:45:00 AM, [address] [facility], [address], [place], [place], [phone], Provider Name:Abundio Andujar ier, 12/01/2025 07:30:00 AM, [address] [place] [address], [address], [place], [phone], Provider Name:Abundio Andujar ier, 12/08/2025 10:00:00 AM, [address] [place] [address], [address] [facility], [place], [phone], Provider Name:Abundio Andujar ier, 06/05/2026 08:15:00 AM, [address] [place] [address], [address] [facility], [place], [phone], Provider Name:Abundio Andujar ier, 06/12/2026 10:30:00 AM, [address] [place] [address], [address] [facility], [place], [place], [phone], Progress Notes * Ketan CORBETTOB: 0 (65 yo M)Acc No.[id number]:05/19/2025 Patient: Maikol PIÑA Sourav :1960 A ge:65 Y S ex:Male Address:[address] [place] [address] * Refills Refill Lantus SoloStar Solution Pen-injector, 100 UNIT/ML, Subcutaneous, 20, 30units SQ, daily, 90 days, Refills=3 * true * Date: Generated for Richelle danielle/Barb/eTransmitting on: 08/29/2024 03:37 PM EST
--- OUTSIDE RECORDS SUMMARY | 2025-05-30 02:30 | XMS_ITS ---
Author Organization Abundio Lizarraga MD Address [address] [place], [place] [id number] Care Team Providers Care Windows Architect Name Role Phone Abundio Lizarraga Primary Care Provider Results Component Value Reference Range Notes Complete Blood Count Auto Di ff Reviewed date:06/12/2025 02:35:51 PM Interpretation:06-09-2025 Performing Lab:[facility], [address] [place] [phone] Notes/Report: White Blood Count 7.7 4.8-10.8 X10*3/uL Red Blood Count 4.19 4.60-5.80 X10*6/uL Hemoglobin 8.6 14.0-18.0 g/dl Hematocrit 30.1 42.0-52.0 % Mean Corpuscular Volume 71.8 80.0-98.0 fL Mean Corpuscular Hemoglobin 20.5 27.0-33.0 pg Mean Corpuscular HGB Conc 28.6 31.0-36.0 g/dl Red Cell Distribution Width 18.1 11.0-16.0 % Platelet Count 296 160-400 X10*3/uL Mean Platelet Volume 9.2 9.4-12.4 fL Neutrophils Percent Auto 65.4 45-73 % Imm Gran Pct Auto 0.4 0.0-0.4 % Lymphocytes Percent Auto 19.4 20-40 % Monocytes Percent Auto 8.9 2-11 % Eosinophils Percent Auto 5.6 0-4 % Basophils Percent Auto 0.3 0-2 % NRBC Pct Auto 0.0 0.0-0.2 /100WBC Neutrophils Absolute Auto 5.0 2.0-8.3 x10*3/u L Imm Gran Abs Auto 0.03 0.00-0.03 X10*3/uL Lymphocytes Absolute Auto 1.5 1.2-4.9 X10*3/u L Monocytes Absolute Auto 0.7 0.1-1.2 X10*3/uL Eosinophils Absolute Auto 0.4 0.0-0.4 X10*3/u L Basophils Absolute Auto 0.0 0.0-0.2 X10*3/uL NRBC Abs Auto 0.000 0.0-0.012 X10*3/uL Comprehensive [place]. Panel Fa st Reviewed date:05/31/2025 04:20:16 PM Interpretation: Performing Lab:[facility], [address] [place] [phone] Notes/Report: Sodium 143 135-145 mmol/L Potassium 4.5 3.3-5.1 mmol/L Chloride 107 96-108 mmol/L Carbon Dioxide 26 22-29 mmol/L Anion Gap 15 12-20 Blood Urea Nitrogen 15 9-16 mg/dL Creatinine 1.07 0.5-1.4 mg/dL Estimated Glomerular Filt Rate > 60 Chronic Kidney Disease: Estimated GFR < 60 mL/min/1.73m2 Severe Kidney Disease: Estimated GFR < 15 mL/min/1.73m2 Glucose Fasting 181 60-99 mg/dL A fasting glucose of 126 mg/dl or greater on more than one occasion is considered diagnostic of diabetes. Calcium 8.7 8.4-10.2 mg/dL Bilirubin Total 0.3 0.0-1.0 mg/dL Aspartate Amino Transferase 32 5-37 U/L Alanine Aminotransferase 14 0-40 U/L Total Protein 7.2 6.5-8.0 g/dL Albumin Level 4.2 3.5-5.0 g/dL Alkaline Phosphatase 66 39-117 U/L IRON PROFILE Reviewed date:06/12/2025 02:35:39 PM Interpretation:06-09-2025 Performing Lab:[facility], [address] [place] [phone] Notes/Report: Iron 19 45-160 mcg/dL Total Iron Binding Capacity 348 228-428 mcg/d L Percent Iron Saturation 5 15-50 % Unsaturated Iron Binding 329 Lipid Panel Reviewed date:05/31/2025 07:48:42 AM Interpretation: Performing Lab:[facility], [address] [place] [phone] Notes/Report: Triglycerides 165 <150 mg/dL Desirable Triglyceride: less than 150 mg/dL Borderline High Triglyceride 150-199 mg/dL High Triglyceride: 200-499 mg/dL Very High Triglyceride: greater than or equal to 5OO mg/dL Cholesterol 106 <200 mg/dL Desirable Cholesterol: less than 200 mg/dL Borderline High Cholesterol: 200-239 mg/dL High Cholesterol: greater than 239 mg/dL LDL Cholesterol Calculated 42 <100 mg/dL Desirable LDL: less than 100 mg/dL Near Optimal/Above Optimal LDL: 110-129 mg/dL Borderline High LDL: 130-159 mg/dL High LDL: 160-189 mg/dL Very High LDL: greater than or equal to 190 mg/dL HDL Cholesterol 31 >40 mg/dL Desirable HDL: greater than 40 mg/dL Note: This HDL assay may give artificially low results in patients with liver disease. PSA,Total (Free>4and<10) Reviewed date:05/31/2025 07:50:01 AM Interpretation: Performing Lab:[facility], [address] [place] [phone] Notes/Report: PSA,Total (Free>4and<10) 0.33 0.00-4.00 ng/mL A Free PSA was not performed: The percentage of Free PSA can be used to enhance the differentiation of prostate cancer from benign prostatic disease in subjects whose PSA levels are between 4.0 and 10.0 ng/mL. For subjects whose PSA levels are below 4.0 or above 10.0 ng/mL, the risk of prostate cancer is determined on the basis of the PSA alone. Therefore the % Free PSA is recommended only for those subjects whose PSA levels are between 4.0 and 10.0 ng/mL. PSA methodology: Wren Alinity i Chemiluminescent Microparticle Immunoassay (CMIA) Microalbumin, Random Reviewed date:05/31/2025 07:48:31 AM Interpretation: Performing Lab:[address] [phone] Notes/Report: Creatinine Urine 82.76 Microalbumin Urine 17.0 Microalbum/Creatinine Ratio Ur 20.5 <30 ug/mg cr Albumin/Creatinine Ratio Reference Ranges: Normal: < 30 ug/mg creatinine Microalbuminuria: 30 - 300 ug/mg creatinine Clinical Albuminuria: > 300 ug/mg creatinine Hemoglobin A1c Reviewed date:05/31/2025 07:48:15 AM Interpretation: Performing Lab:[address] [phone] Notes/Report: Hemoglobin A1c % 9.2 <6.0 % [...] average glucose, using the formula of the D7U-Orenudw Average Glucose study (ADAG), Diabetes Care, Vol.31,#8, Mar. 2007 UA ClnCatch+Micro w/rflx Cul t Reviewed date:05/31/2025 07:50:27 AM Interpretation: Performing Lab:[address] [phone] Notes/Report: Urine, Clean Catch Color Urine Yellow Appearance Urine Cloudy PH 8.0 5.0-9.0 Glucose Urine UA >=1000 Negative mg/dL Urine Blood Negative Negative Specific [place] - Urine >= 1.030 1.005-1.025 Urine Protein Negative Neg-Trace mg/dL Urine Ketones Negative Negative mg/dL Nitrite Urine Negative Negative Leukocyte Esterase Urine Negative Negative RBC Urine 0-2 0-2 /HPF WBC Urine 0-5 0-5 /HPF Squamous Epithelial Cell Urine 0-2 0-2 /HPF Bacteria Urine None Seen None Seen Hyaline Casts Urine 0-2 0-2 /LPF REASON FOR VISIT yearly fasting labs Encounters Encounter Location Date Provider Diagnosis Abundio Lizarraga MD [address] [place] [id number] 05/30/2025 Abundio Lizarraga Blood tests for rout ine general physical examination Z00.00 ; Iron deficiency anemia, unspecified iron deficiency anemia type D50.9 ; Essential hypertension I10 ; Type 2 diabetes mellitus with diabetic neuropathy E11.40 and Pure hypercholesterolemia E78.00 Assessments Encounter Date Diagnosis (ICD Code) Assessment Notes Treatment Notes Treatment Clinical Notes Section Notes 05/30/2025 [address] tests [address] ine general physical examination (ICD-10 - Z00.00) b 05/30/2025 Iron deficiency anem ia, unspecified iron deficiency anemia type (ICD-10 - D50.9) b 05/30/2025 Essential hypertensi on (ICD-10 - I10) b 05/30/2025 Type 2 diabetes karan itus with diabetic neuropathy (ICD-10 - E11.40) b 05/30/2025 Pure hypercholesterolemia (ICD-10 - E78.00) b Plan Of Treatment Next Appt Details Provider Name:Abundio tinoco, 07/07/2025 10:45:00 AM, [address] [place] [address], [address], [phone], Provider Name:Abundio tinoco, 12/01/2025 07:30:00 AM, [address] [place] [address], [address], [phone], Provider Name:Abundio tinoco, 12/08/2025 10:00:00 AM, [address] [place] [address], [address], [phone], Provider Name:Abundio tinoco, 06/05/2026 08:15:00 AM, [address] [place] [address], [phone], Provider Name:Abundio tinoco, 06/12/2026 10:30:00 AM, [address] [place] [address], [phone], Progress Notes * Ketan CORBETTOB: 0 (65 yo M)Acc No.[id number]:05/30/2025 Progress Note Patient: Sourav MENJIVAR Provider: Mayuri Lizarraga MD :1960 A ge:65 Y S ex:Male Date:05/30/2025 Address:[address] [place] [address], [place] [address], [facility] Subjective: * Chief Complaints: * 1 . Yearly fasting labs. * Medical History: Objective: * Vitals: Assessment: * Assessment: 1. B lood tests for routine general physical examination - Z00.00 (Primary) 2 .?Iron deficiency anemia, unspecified iron deficiency anemia type - D50.9 3 .?Essential hypertension - I10 4 . T ype 2 diabetes mellitus with diabetic neuropathy - E11.40 5 . P ure hypercholesterolemia - E78.00 b Plan: * Treatment: 2. I elvis deficiency anemia, unspecified iron deficiency anemia type L AB: Complete Blood Count Auto Diff (Collection Date & Time - 05/30/2025 07:30 AM) L AB: Comprehensive [place]. Panel Fast (Collection Date & Time - 05/30/2025 07:30 AM) L AB: IRON PROFILE (Collection Date & Time - 05/30/2025 07:30 AM) L AB: Lipid Panel (Collection Date & Time - 05/30/2025 07:30 AM) L AB: PSA,Total (Free>4and<10) (Collection Date & Time - 05/30/2025 07:30 AM) L AB: Microalbumin, Random (Collection Date & Time - 05/30/2025 07:30 AM) L AB: Hemoglobin A1c (Collection Date & Time - 05/30/2025 07:30 AM) L AB: UA ClnCatch+Micro w/rflx Cult (Collection Date & Time - 05/30/2025 07:30 AM) 3. E ssential hypertension L AB: Complete Blood Count Auto Diff (Collection Date & Time - 05/30/2025 07:30 AM) L AB: Comprehensive [place]. Panel Fast (Collection Date & Time - 05/30/2025 07:30 AM) L AB: IRON PROFILE (Collection Date & Time - 05/30/2025 07:30 AM) L AB: Lipid Panel (Collection Date & Time - 05/30/2025 07:30 AM) L AB: PSA,Total (Free>4and<10) (Collection Date & Time - 05/30/2025 07:30 AM) L AB: Microalbumin, Random (Collection Date & Time - 05/30/2025 07:30 AM) L AB: Hemoglobin A1c (Collection Date & Time - 05/30/2025 07:30 AM) L AB: UA ClnCatch+Micro w/rflx Cult (Collection Date & Time - 05/30/2025 07:30 AM) 4. T ype 2 diabetes mellitus with diabetic neuropathy L AB: Complete Blood Count Auto Diff (Collection Date & Time - 05/30/2025 07:30 AM) L AB: Comprehensive [place]. Panel Fast (Collection Date & Time - 05/30/2025 07:30 AM) L AB: IRON PROFILE (Collection Date & Time - 05/30/2025 07:30 AM) L AB: Lipid Panel (Collection Date & Time - 05/30/2025 07:30 AM) L AB: PSA,Total (Free>4and<10) (Collection Date & Time - 05/30/2025 07:30 AM) L AB: Microalbumin, Random (Collection Date & Time - 05/30/2025 07:30 AM) L AB: Hemoglobin A1c (Collection Date & Time - 05/30/2025 07:30 AM) L AB: UA ClnCatch+Micro w/rflx Cult (Collection Date & Time - 05/30/2025 07:30 AM) 5. P ure hypercholesterolemia L AB: Complete Blood Count Auto Diff (Collection Date & Time - 05/30/2025 07:30 AM) L AB: Comprehensive [place]. Panel Fast (Collection Date & Time - 05/30/2025 07:30 AM) L AB: IRON PROFILE (Collection Date & Time - 05/30/2025 07:30 AM) L AB: Lipid Panel (Collection Date & Time - 05/30/2025 07:30 AM) L AB: PSA,Total (Free>4and<10) (Collection Date & Time - 05/30/2025 07:30 AM) L AB: Microalbumin, Random (Collection Date & Time - 05/30/2025 07:30 AM) L AB: Hemoglobin A1c (Collection Date & Time - 05/30/2025 07:30 AM) L AB: UA ClnCatch+Micro w/rflx Cult (Collection Date & Time - 05/30/2025 07:30 AM) * Procedure Codes: 3 6415 VENIPUNCT, ROUTINE* * * The named appointment provid er may or may not be the originator of this progress note, and it is not deemed complete until electronically signed by the appointment provider. Sign off status: Pending * Provider: Mayuri Lizarraga MD Date: 1 Generated for Richelle danielle/Barb/Alirioitting on: 08/29/2024 03:39 PM EST
--- OUTSIDE RECORDS SUMMARY | 2025-06-09 04:30 | XMS_ITS ---
Author Organization Abundio Lizarraga MD Address [address] [place], [place] [id number] Care Team Providers Care Manager Documentation Name Role Phone Abundio Lizarraga Primary Care Provider Allergies No Known Allergies REASON FOR VISIT review labs/ must see Anemia Medications Medication SIG (Take, Route, Frequency, Duration) Notes Start Date End Date Status Dupixent 200 MG/1.14ML as directed Subcutaneous Active Farxiga 10 MG TAKE 1 TABLET BY SAVI TH DAILY Active Clobetasol Propionate 0.05 % 1 application Externally Twice a day 02/28/2022 Active Combivent 18-103 MCG/ACT INHALE 2 PUFFS BY MOUTH FOUR TIMES DAILY for 75 Not-Taking Cyclobenzaprine HCl 5 MG 1 tablet as nee ded Orally Three times a day for 14 days 06/23/2019 Not-Taking Basaglar KwikPen 100 UNIT/ML increase to 25 units per day Not-Taking Zolpidem Tartrate 5 MG TAKE 1 TABLET BY MOUTH EVERY DAY AT BEDTIME for 30 05/30/2025 Active Lantus SoloStar 100 UNIT/ML 30units SQ Subcutaneous daily 10/24/2024 Active Levothyroxine Sodium 100 MCG TAKE 1 TABLET BY MOUTH EVERY DAY Active Rosuvastatin Calcium 20 MG TAKE 1 TABLET BY MOUTH EVERY DAY Active Alcohol Prep 70 % USE 1 PAD DAILY for 90 Active Celecoxib 200 MG TAKE 1 CAPSULE BY MOUTH EVERY DAY for 90 Active Ventolin HFA 108 (90 Base) MCG/ACT INHALE 1 PUFF BY MOUTH EVERY 4 HOURS NEEDED for 33 Active metFORMIN HCl 1000 MG TAKE 1 TABLET BY M OUTH TWICE DAILY WITH A MEAL Active Lisinopril 40 MG TAKE 1 TABLET BY SAVI TH EVERY DAY Active BD Pen Needle Short Ultrafine 31G X 8 MM USE 1 NEEDLE DAILY for 90 Active Omeprazole 20 MG TAKE 1 CAPSULE BY MOUTH EVERY DAY for 90 Active Doxycycline Hyclate 100 MG 1 capsule Ora lly twice for 10 days 12/15/2024 Active Gabapentin 600 MG TAKE 1 TABLET BY SAVI TH TWICE DAILY for 90 Active hydrOXYzine HCl 10 MG as directed Orally Once a day for 30 days Active FreeStyle Lite Test - USETO TEST BLOOD S UGAR TWICE DAILY for 100 Active Halobetasol Propionate 0.05 % APPLY TOPICALLY TO THE AFFECTED AREA TWICE DAILY for 150 Active traMADol HCl 50 MG TAKE 1 TABLET BY SAVI TH EVERY MORNING AND 2 TABLETS BY MOUTH EVERY EVENING for 90 06/06/2024 Active diphenhydrAMINE HCl 25 MG 1 or 2 tabs Or ally twice a day for 10 days 08/06/2023 Active FreeStyle Lite w/Device TEST BLOOD SUGAR TWICE DAILY for 90 Active FreeStyle Lancets - USE TO TEST BLOOD SUGAR TWICE DAILY for 90 Active Furosemide 40 MG TAKE 1 TABLET BY SAVI TH EVERY DAY for 30 Active Immunizations Vaccine Route Administration Date Status Comme nts Influenza High Dose Unknown 06/09/2025 Refused Social History Tobacco Use: Social History [...] Never (0 point) Points 1 Interpretation Negative Vital Signs Blood pressure systolic 122 mm Hg 06/09/20 25 Blood pressure diastolic 50 mm Hg 025 Height 70.5 in 06/09/2025 Weight 246 lbs 06/09/2025 BMI 34.79 kg/m2 06/09/2025 Encounters Encounter Location Date Provider Diagnosis Abundio Lizarraga MD [address] [place] [address] [address] [place], [place] [phone] 06/09/2025 Abundio Lizarraga Annual physical exam Z00.00 ; Iron deficiency anemia, unspecified iron deficiency anemia type D50.9 ; Type 2 diabetes mellitus with diabetic neuropathy E11.40 ; Pure hypercholesterolemia E78.00 ; Eczema L30.9 ; Essential hypertension I10 ; Acquired hypothyroidism E03.9 and Depression screening Z13.31 Assessments Encounter Date Diagnosis (ICD Code) Assessment Notes Treatment Notes Treatment Clinical Notes Section Notes 06/09/2025 Annual physical exam (ICD-10 - Z00.00) labs reviewed and discussed with patient 06/09/2025 Iron deficiency anem ia, unspecified iron deficiency anemia type (ICD-10 - D50.9) has been iron deficient for years. will send to dr reeves/ lab results faxed to Dr. Reeves 06/09/2025 Type 2 diabetes karan itus with diabetic neuropathy (ICD-10 - E11.40) a1c is still high, advied on diet and exercise, will contiue current regiment 06/09/2025 Pure hypercholesterolemia (ICD-10 - E78.00) doing well on meds, will continue current regiment 06/09/2025 Eczema (ICD-10 - L30.9) refe rral back to [facility]/ patient will be calling to make his own appt 06/09/2025 Essential hypertensi on (ICD-10 - I10) stable, will continue current regiment 06/09/2025 Acquired hypothyroid ism (ICD-10 - E03.9) stable, will continue current regiment 06/09/2025 Depression screening (ICD-10 - Z13.31) negative screen Plan Of Treatment Medication Medication Name Sig Start Date Stop Date Notes Dupixent 200 MG/1.14ML as directed Subcutaneous Farxiga 10 MG TAKE 1 TABLET BY MOUTH DAILY Clobetasol Propionate 0.05 % 1 applicati on Externally Twice a day 02/28/2022 Lantus SoloStar 100 UNIT/ML 30units SQ Subcutaneous daily 10/24/2024 Levothyroxine Sodium 100 MCG TAKE 1 TABL ET BY MOUTH EVERY DAY Rosuvastatin Calcium 20 MG TAKE 1 TABLET BY MOUTH EVERY DAY metFORMIN HCl 1000 MG TAKE 1 TABLET BY M OUTH TWICE DAILY WITH A MEAL Lisinopril 40 MG TAKE 1 TABLET BY SAVI TH EVERY DAY Treatment Notes Assessment Notes Annual physical exam labs reviewed and d iscussed with patient Iron deficiency anemia, unsp ecified iron deficiency anemia type has been iron deficient for years. will send to dr reeves/ lab results faxed to Dr. Reeves Type 2 diabetes mellitus wit h diabetic neuropathy a1c is still high, advied on diet and exercise, will contiue current regiment Pure hypercholesterolemia doing well on meds, will continue current regiment Eczema referral back to [facility]/ patient will be calling to make his own appt Essential hypertension stable, will cont inue current regiment Acquired hypothyroidism stable, will con tinue current regiment Depression screening negative screen Next Appt Details Provider Name:Abundio tinoco, 07/07/2025 10:45:00 AM, [address] [place] [address], [address], [phone], Provider Name:Abundio tinoco, 12/01/2025 07:30:00 AM, [address] [place] [address], [phone], Provider Name:Abundio tinoco, 12/08/2025 10:00:00 AM, [address] [place] [address], [address], [phone], Provider Name:Abundio salinasr, 06/05/2026 08:15:00 AM, [address] [place] [address], [phone], Provider Name:Abundio tinoco, 06/12/2026 10:30:00 AM, [address] [place] [address], [phone], Progress Notes * Ketan CORBETTOB: 0 (65 yo M)Acc No.[id number]:06/09/2025 Patient: Sourav MENJIVAR Provider: Mayuri Lizarraga MD :1960 A ge:65 Y S ex:Male Date:06/09/2025 Address:[address] [place] [address], [id number] Subjective: * Chief Complaints: * r eview labs/ must see Anemia * HPI: D epression Screening: has a long history of anemia and used to get shots of iron. PHQ-9 L ittle interest or pleasure in doing things N ot at all, F eeling down, depressed, or hopeless N ot at all, T rouble falling or staying asleep, or sleeping too much N ot at all, F eeling tired or having little energy N ot at all, P oor appetite or overeating N ot at all, F eeling bad about yourself or that you are a failure, or have let yourself or your family down N ot at all, T rouble concentrating on things, such as reading the newspaper or watching television N ot at all, M oving or speaking so slowly that other people could have noticed; or the opposite, being so fidgety or restless that you have been moving around a lot more than usual N ot at all, T houghts that you would be better off or of hurting yourself in some way N ot at all, T otal Score 0 . I nterpretation and Intervention D epression Screening Findings N egative, F ollow-Up for Depression : review of PHQ-9 found negative result, no follow-up needed. C ommunication Needs: Communication Needs D oes the patient have a hearing impairment N o, D oes the patient have a vision impairment? Y es, I f yes, what is the vision impairment? G lasses, D oes the patient have a cognition impairment? N o. F all Risk: History H ave you had any falls with injury in the past year? N o, H ave you had two or more falls in the past year? N o. S RAFAEL Questions: SDOH Questions I n the past year have you been worried about losing housing? N o, I n the past year have you or any family members you live with been unable to get any of the following when it was really needed? Check all that apply: N one. S ymptom(s): patient is a 65 yo mle here for annual visit with review of recent labs and follow up of chronic issues. * ROS: G eneral/Constitutional: Change in appetite d enies. C hills d enies. F ever d enies. O phthalmologic: Blurred vision d enies. D ischarge d enies. P ain d enies. E NT: Decreased hearing d enies. S ore throat d enies.?Swollen glands d enies. E ndocrine: Cold intolerance d enies. E xcessive thirst d enies. H eat intolerance d enies. W eight loss d enies. R espiratory: Cough d enies. S hortness of breath at rest d enies. S hortness of breath with exertion d enies. W heezing d enies. C ardiovascular: Chest pain at rest d enies. C hest pain with exertion?denies. I rregular heartbeat d enies. S hortness of breath d enies. ? G astrointestinal: Abdominal pain d enies. C hange in bowel habits d enies. D iarrhea d enies. N ausea d enies. R ectal bleeding d enies. V omiting d enies . G enitourinary: Blood in urine d enies. D ifficulty urinating d enies. F requent urination d enies. M usculoskeletal: Painful joints d enies. W eakness d enies. ? S kin: Dry skin d enies. I tching d enies. D enies?Mole(s), changes in moles, new moles or any lesions of concern. D enies P hotosensitivity. R kenji d enies. N eurologic: Dizziness d enies. F ainting d enies. H eadache?denies. * Medical History: * Surgical History: * Hospitalization/Major Diagno stic Procedure: * Family History: F ather: 70 yrs. M other: 68 yrs. 2 brother(s) , 1 sister(s) . .? Father Neck Cancer Mother Lung Cancer 1 brother MVA, Denies mental health/substance abuse family history, No pertinent family medical history, Denies mental health/substance abuse family history, No pertinent family medical history, Denies mental health/substance abuse family history. * Social History: T obacco Use: T obacco Use/Smoking P atient is a f ormer smoker, H ow long has it been since you last smoked? > 10 years, A dditional Findings: Tobacco Non-User F ormer smoker, currently using no form of tobacco. D rugs/Alcohol: A lcohol Screen D id you have a drink containing alcohol in the past year? Y es, H ow often did you have a drink containing alcohol in the past year? M onthly or less (1 point), H ow many drinks did you have on a typical day when you were drinking in the past year? 1 or 2 drinks (0 point), H ow often did you have 6 or more drinks on one occasion in the past year? N ever (0 point), P oints 1 , I nterpretation N egative. M iscellaneous: C affeine: yes. Children: no. Community involvements: no. Exercise: no. Home smoke detector use: yes. Marital status: . Pets: none. * Medications: T akingFurosemide 40 MG Tablet [...] Strip USETO TEST BLOOD SUGAR TWICE DAILY Dupixent 200 MG/1.14ML Solution Prefilled Syringe as directed Subcutaneous traMADol HCl 50 MG Tablet TAKE 1 [...] TAKE 1 TABLET BY MOUTH EVERY DAY metFORMIN HCl 1000 MG Tablet TAKE 1 TABLET BY MOUTH TWICE DAILY WITH A MEAL Omeprazole 20 MG Capsule Delayed Release TAKE 1 CAPSULE BY MOUTH EVERY DAY Rosuvastatin Calcium 20 MG Tablet TAKE 1 TABLET BY MOUTH EVERY DAY Doxycycline Hyclate 100 MG Capsule 1 capsule Orally twice BD Pen Needle Short Ultrafine 31G X 8 MM Miscellaneous USE 1 NEEDLE DAILY Alcohol Prep 70 % Pad USE 1 PAD DAILY Levothyroxine Sodium 100 MCG Tablet TAKE 1 TABLET BY MOUTH EVERY DAY Celecoxib 200 MG Capsule TAKE 1 CAPSULE BY MOUTH EVERY DAY Lantus SoloStar 100 UNIT/ML Solution Pen-injector 30units SQ Subcutaneous daily Ventolin HFA 108 (90 Base) MCG/ACT Aerosol Solution INHALE 1 PUFF BY MOUTH EVERY 4 HOURS NEEDED Farxiga 10 MG Tablet TAKE 1 TABLET BY MOUTH DAILY Zolpidem Tartrate 5 MG Tablet TAKE 1 [...] USETO TEST BLOOD SUGAR TWICE DAILY Taking Dupixent 200 MG/1.14ML Solution Prefilled Syringe as directed Subcutaneous Taking traMADol HCl 50 MG Tablet TAKE [...] 1 TABLET BY MOUTH EVERY DAY Taking metFORMIN HCl 1000 MG Tablet TAKE 1 TABLET BY MOUTH TWICE DAILY WITH A MEAL Taking Omeprazole 20 MG Capsule Delayed Release TAKE 1 CAPSULE BY MOUTH EVERY DAY Taking Rosuvastatin Calcium 20 MG Tablet TAKE 1 TABLET BY MOUTH EVERY DAY Taking Doxycycline Hyclate 100 MG Capsule 1 capsule Orally twice Taking BD Pen Needle Short Ultrafine 31G X 8 MM Miscellaneous USE 1 NEEDLE DAILY Taking Alcohol Prep 70 % Pad USE 1 PAD DAILY Taking Levothyroxine Sodium 100 MCG Tablet TAKE 1 TABLET BY MOUTH EVERY DAY Taking Celecoxib 200 MG Capsule TAKE 1 CAPSULE BY MOUTH EVERY DAY Taking Lantus SoloStar 100 UNIT/ML Solution Pen-injector 30units SQ Subcutaneous daily Taking Ventolin HFA 108 (90 Base) MCG/ACT Aerosol Solution INHALE 1 PUFF BY MOUTH EVERY 4 HOURS NEEDED Taking Farxiga 10 MG Tablet TAKE 1 TABLET BY MOUTH DAILY Taking Zolpidem Tartrate 5 MG Tablet TAKE 1 TABLET BY MOUTH EVERY DAY AT BEDTIME Not-Taking/PRNBasaglar KwikPen 100 UNIT/ML Solution Pen-injector increase to 25 units per day Cyclobenzaprine HCl 5 MG Tablet 1 tablet as needed Orally Three times a day Combivent 18-103 MCG/ACT Aerosol INHALE 2 PUFFS BY MOUTH FOUR TIMES DAILY Not-Taking/PRN Basaglar KwikPen 100 UNIT/ML Solution Pen-injector increase to 25 units per day Not-Taking/PRN Cyclobenzaprine HCl 5 MG Tablet 1 tablet as needed Orally Three times a day Not-Taking/PRN Combivent 18-103 MCG/ACT Aerosol INHALE 2 PUFFS BY MOUTH FOUR TIMES DAILY * Allergies: N .K.D.A.yes[Allergies Verified] Objective: * Vitals: H t: 70.5, Wt: 246, BMI:34.79, BP:122/50, Wt-k.58. * P ast Orders: L ab:UA ClnCatch+Micro w/rflx Cult (Order Date - 05/30/2025) (Collection Date & Time - 05/30/2025 07:30 AM) Value Reference Range Color Urine Yellow - Appearance Urine Cloudy - PH 8.0 5.0-9.0 - Glucose Urine UA >=1000 A Negative - mg/dL Urine Blood Negative Negative - Specific [place] - Urine >= 1.030 H 1.005-1.025 - Urine Protein Negative Neg-Trace - mg/dL Urine Ketones Negative Negative - mg/dL Nitrite Urine Negative Negative - Leukocyte Esterase Urine Negative Negative - RBC Urine 0-2 0-2 - /HPF WBC Urine 0-5 0-5 - /HPF Squamous Epithelial Cell Urine 0-2 0-2 - /HP F Bacteria Urine None Seen None Seen - Hyaline Casts Urine 0-2 0-2 - /LPF L ab:Comprehensive [place]. Panel Fast (Order Date - 05/30/2025) (Collection Date & Time - 05/30/2025 07:30 AM) Value Reference Range Sodium 143 135-145 - mmol/L Bilirubin Total 0.3 0.0-1.0 - mg/dL Aspartate Amino Transferase 32 5-37 - U/L Alanine Aminotransferase 14 0-40 - U/L Total Protein 7.2 6.5-8.0 - g/dL Albumin Level 4.2 3.5-5.0 - g/dL Alkaline Phosphatase 66 39-117 - U/L Potassium 4.5 3.3-5.1 - mmol/L Chloride 107 96-108 - mmol/L Carbon Dioxide 26 22-29 - mmol/L Anion Gap 15 12-20 - Blood Urea Nitrogen 15 9-16 - mg/dL Creatinine 1.07 0.5-1.4 - mg/dL Estimated Glomerular Filt Rate > 60 - Glucose Fasting 181 H 60-99 - mg/dL Calcium 8.7 8.4-10.2 - mg/dL L ab:Lipid Panel (Order Date - 05/30/2025) (Collection Date & Time - 05/30/2025 07:30 AM) Value Reference Range Triglycerides 165 H <150 - mg/dL Cholesterol 106 <200 - mg/dL LDL Cholesterol Calculated 42 <100 - mg/dL HDL Cholesterol 31 L >40 - mg/dL L ab:PSA,Total (Free>4and<10) (Order Date - 05/30/2025) (Collection Date & Time - 05/30/2025 07:30 AM) Value Reference Range PSA,Total (Free>4and<10) 0.33 0.00-4.00 - ng/ mL L ab:Microalbumin, Random (Order Date - 05/30/2025) (Collection Date & Time - 05/30/2025 07:30 AM) Value Reference Range Creatinine Urine 82.76 - mg/dL Microalbumin Urine 17.0 - mg/L Microalbum Creatinine Ratio Ur 20.5 <30 - ug/ mg cr L ab:Hemoglobin A1c (Order Date - 05/30/2025) (Collection Date & Time - 05/30/2025 07:30 AM) Value Reference Range Hemoglobin A1c % 9.2 H <6.0 - % Estimated Average Glucose 217 - mg/dL * Examination: G eneral Examination: GENERAL APPEARANCE: w ell developed, well nourished, in no acute distress. HEAD: n ormocephalic, atraumatic. EYES: p upils equal, round, reactive to light and accommodation, sclera non-icteric. EARS: n ormal. ORAL CAVITY: m ucosa moist. THROAT: c lear. NECK/THYROID: n josh supple, full range of motion, no cervical lymphadenopathy, no bruits. SKIN: w arm and dry, no suspicious lesions, abnormal with eczematous changes of legs and feet. HEART: r egular rate and rhythm, S1, S2 normal, no murmurs.? LUNGS: c lear to auscultation bilaterally. ABDOMEN: s oft, nontender, nondistended, bowel sounds present, normal, no organomegaly , no masses palpable. RECTAL EXAM: r efused. MALE GENITOURINARY: d eclined. EXTREMITIES: n o clubbing, cyanosis, or edema. NEUROLOGIC: n onfocal, motor strength normal upper and lower extremities, sensory exam intact. FOOT EXAM: . Assessment: * Assessment: 1. A nnual physical exam - Z00.00 (Primary) 2 . I elvis deficiency anemia, unspecified iron deficiency anemia type - D50.9 3 . T ype 2 diabetes mellitus with diabetic neuropathy - E11.40 4 . P ure hypercholesterolemia - E78.00 5 . E czema - L30.9 6 . E ssential hypertension - I10 7 . A cquired hypothyroidism - E03.9 8 . D epression screening - Z13.31 Plan: * Treatment: 2. I elvis deficiency anemia, unspecified iron deficiency anemia type Notes: has been iron deficient for years. will send to dr reeves/ lab results faxed to Dr. Reeves ? 3. T ype 2 diabetes mellitus with diabetic neuropathy Continue metFORMIN HCl Tablet, 1000 MG, TAKE 1 TABLET BY MOUTH TWICE DAILY WITH A MEAL; C ontinue Lantus SoloStar Solution Pen-injector, 100 UNIT/ML, 30units SQ, Subcutaneous, daily; C ontinue Farxiga Tablet, 10 MG, TAKE 1 TABLET BY MOUTH DAILY. Notes: a1c is still high, advied on diet and exercise, will contiue current regiment 4. P ure hypercholesterolemia Continue Rosuvastatin Calcium Tablet, 20 MG, TAKE 1 TABLET BY MOUTH EVERY DAY. Notes: doing well on meds, will continue current regiment 5. E czema Continue Dupixent Solution Prefilled Syringe, 200 MG/1.14ML, as directed, Subcutaneous; C ontinue Clobetasol Propionate Cream, 0.05 %, 1 application, Externally, Twice a day. Notes: referral back to [facility]/ patient will be calling to make his own appt 6. E ssential hypertension Continue Lisinopril Tablet, 40 MG, TAKE 1 TABLET BY MOUTH EVERY DAY. Notes: stable, will continue current regiment 7. A cquired hypothyroidism Continue Levothyroxine Sodium Tablet, 100 MCG, TAKE 1 TABLET BY MOUTH EVERY DAY. Notes: stable, will continue current regiment 8. D epression screening Notes: negative screen * Immunizations: Influenza High Dose (Not administered - Refused: Patient decision) * Procedure Codes: * Preventive Medicine: Diabetes Care Plan: P atient Lifestyle Goals N eeds to maintain diet control.?Treatment Goals A 1C< 7. B arriers N eeds better diet control. S elf-Managment Plan I ncrease light exercise to 3 times a week for 30 minutes. E xpected Outcome m aintaining stable blood sugar levels within a target range. * * Sign off status: Completed true * Provider: Mayuri Lizarrgaa MD Date: Generated for Richelle danielle/Barb/Jerseysmitting on: 08/29/2024 03:40 PM EST History and Physical Notes * HPI (History of Present Illness) Category Sub-Category Detail Notes Category Not es Symptom(s) patient is a 65 yo mle here for annual visit with review of recent labs and follow up of chronic issues Depression Screening PHQ-9 Little inte rest or pleasure in doing things: Not at all Feeling down, depressed, or hopeless: No t at all Trouble falling or staying asleep, or sl eeping too much: Not at all Feeling tired or having little energy: N ot at all Poor appetite or overeating: Not at all Feeling bad about yourself o r that you are a failure, or have let yourself or your family down: Not at all Trouble concentrating on thi ngs, such as reading the newspaper or watching television: Not at all Moving or speaking so slowly that other people could have noticed; or the opposite, being so fidgety or restless that you have been moving around a lot more than usual: Not at all Thoughts that you would be b mabel off or of hurting yourself in some way: Not at all Total Score: 0 Interpretation and Intervention Depression Mukesh bell Findings: Negative Follow-Up for Depression: : review of PH Q-9 found negative result, no follow-up needed SDOH Questions SDOH Questions In the past year have you been worried about losing housing?: No In the past year have you or any family members you live with been unable to get any of the following when it was really needed? Check all that apply:: None Fall Risk History Have you had any falls with injury i n the past year?: No Have you had two or more falls in the st year?: No Communication Needs Communication Needs Does the patient have a hearing impairment: No Does the patient have a vision impairmen t?: Yes If yes, what is the vision impairment?: Glasses Does the patient have a cognition impair ment?: No Examination Category Sub-Category Detail Notes Category Not es General Examination GENERAL APPEARANCE: well dev eloped, well nourished, in no acute distress HEAD: normocephalic, atrau matic EYES: pupils equal, round, reactive to light and accommodation, sclera non-icteric EARS: normal THROAT: clear NECK/THYROID: neck supple, full ra nge of motion, no cervical lymphadenopathy, no bruits HEART: regular rate and rhy thm, S1, S2 normal, no murmurs LUNGS: clear to auscultatio n bilaterally ABDOMEN: soft, nontender, non distended, bowel sounds present, normal, no organomegaly , no masses palpable NEUROLOGIC: nonfocal, motor stre ngth normal upper and lower extremities, sensory exam intact SKIN: warm and dry, no ramesh picious lesions, abnormal with eczematous changes of legs and feet EXTREMITIES: no clubbing, cyanosi s, or edema MALE GENITOURINARY: declined RECTAL EXAM: refused ORAL CAVITY: mucosa moist FOOT EXAM: Date: 06/09/2025 no pulses but n ormal pin prick and light touch
--- OUTSIDE RECORDS SUMMARY | 2025-06-15 04:04 | XMS_ITS ---
Author Organization Abundio Lizarraga MD Address [address] [place] [phone] Care Team Providers Care Labor Economist Name Role Phone Abundio Lizarraga Primary Care Provider [phone] REASON FOR VISIT APPT Encounters Encounter Location Date Provider Diagnosis Abundio Lizarraga MD [address] [facility] [address] [place] [phone] 06/15/2025 Abundio Lizarraga Plan Of Treatment Next Appt Details Provider Name:Abundio Andujar ier, 07/07/2025 10:45:00 AM, [address] [place] [address], [address] [place] [address], [phone], Provider Name:Abundio tinoco, 12/01/2025 07:30:00 AM, [address] [place] [address], [address], [phone], Provider Name:Abundio tinoco, 12/08/2025 10:00:00 AM, [address] [place] [address], [address], [phone], Provider Name:Abundio Andujar ier, 06/05/2026 08:15:00 AM, [address], [address], [place], [place], [phone], Provider Name:Abundio Andujar ier, 06/12/2026 10:30:00 AM, [address], [address], [place], [phone], Progress Notes * Ketan CORBETTOB: 0 (65 yo M)Acc No.[id number]:06/15/2025 Patient: Maikol Sourav PIÑA :1960 A ge:65 Y S ex:Male Address:[address] [place] [address], [place] [address] * true * Date: Generated for Richelle danielle/Barb/Jerseysmitting on: 08/29/2024 03:38 PM EST
[2025-06-29 12:52] LABS: MANUAL DIFF FLAG NO
[2025-06-29 14:20] LABS: Hematocrit 33.1 % (42.0-52.0); Hemoglobin 9.0 g/dl (14.0-18.0); Imm Gran Abs Auto 0.03 X10*3/uL (0.00-0.03); Imm Gran Pct Auto 0.3 % (0.0-0.4); Lymphocytes Absolute Auto 2.0 X10*3/uL (1.2-4.9); Mean Corpuscular HGB Conc 27.2 g/dl (31.0-36.0); Mean Corpuscular Hemoglobin 19.9 pg (27.0-33.0); Mean Corpuscular Volume 73.1 fL (80.0-98.0); NRBC Abs Auto 0.000 X10*3/uL (0.0-0.012); NRBC Pct Auto 0.0 /100WBC (0.0-0.2); Platelet Count 343 X10*3/uL (160-400); Red Blood Count 4.53 X10*6/uL (4.60-5.80); White Blood Count 10.0 X10*3/uL (4.8-10.8)
[2025-06-29 15:29] LABS: Folate 11.8 ng/mL (> or = 4.0); Vitamin B12 175 pg/mL (200-900)
--- OUTSIDE RECORDS SUMMARY | 2025-06-29 15:38 | XMS_ITS | Patient Health Record ---
Author Organization [facility] Address [address] [place] [address] Care Team Providers [facility] Name Role Phone Abundio Lizarraga MD Primary Care Provider Hamlet Garcia Unavailable [phone] Allergies Allergen (clinical drug ingredient) Drug/Non Drug Allergy documented on EMR Reaction Allergy Type Onset Date Status seasonal (uncoded) Unknown Allergy A ctive Results Component Value Reference Range Notes Vitamin B12 and Folate (Not yet reviewed by provider) Interpretation: Performing Lab:[facility], [address] [place] [phone] Notes/Report: Vitamin B12 175 200-900 pg/mL NORMAL 200-900 PG/ML INDETERMINATE 160-199 PG/ML DEFICIENT < 160 PG/ML Folate 11.8 > or = 4.0 ng/mL Reference Values: > or = 4.0 ng/mL < 4.0 ng/mL suggests folate deficiency Methotrexate, aminopterin and folinic acid (leucovorin) are chemotherapeutic agents whose molecular structures are similar to folate; therefore, the [employer]amer folate assay cannot be used for patients using these drugs. Complete Blood Count Auto Di ff (Not yet reviewed by provider) Interpretation: Performing Lab:[facility], [address] [place] [phone] Notes/Report: White Blood Count 10.0 4.8-10.8 X10*3/uL Red Blood Count 4.53 4.60-5.80 X10*6/uL Hemoglobin 9.0 14.0-18.0 g/dl Hematocrit 33.1 42.0-52.0 % Mean Corpuscular Volume 73.1 80.0-98.0 fL Mean Corpuscular Hemoglobin 19.9 27.0-33.0 pg Mean Corpuscular HGB Conc 27.2 31.0-36.0 g/dl Red Cell Distribution Width 18.5 11.0-16.0 % Platelet Count 343 160-400 X10*3/uL Mean Platelet Volume 9.5 9.4-12.4 fL Neutrophils Percent Auto 64.1 45-73 % Imm Gran Pct Auto 0.3 0.0-0.4 % Lymphocytes Percent Auto 19.9 20-40 % Monocytes Percent Auto 8.1 2-11 % Eosinophils Percent Auto 6.9 0-4 % Basophils Percent Auto 0.7 0-2 % NRBC Pct Auto 0.0 0.0-0.2 /100WBC Neutrophils Absolute Auto 6.4 2.0-8.3 x10*3/u L Imm Gran Abs Auto 0.03 0.00-0.03 X10*3/uL Lymphocytes Absolute Auto 2.0 1.2-4.9 X10*3/u L Monocytes Absolute Auto 0.8 0.1-1.2 X10*3/uL Eosinophils Absolute Auto 0.7 0.0-0.4 X10*3/u L Basophils Absolute Auto 0.1 0.0-0.2 X10*3/uL NRBC Abs Auto 0.000 0.0-0.012 X10*3/uL Reason For Referral No Information Medications Medication SIG (Take, Route, Frequency, Duration) Notes Start Date End Date Status Dulcolax (colon prep) 5 MG take at 3:00 p.m and 7:00p.m. Orally two tablets twice a day for one day; Duration: 1 day 03/22/2017 Not-Taking MiraLax (colon prep) 8.3 ounce ((238) grams mixed with Gatorade or Crystal Light orally begin at 5:00 p.m. the day before the procedure; Duration: 1 day 03/22/2017 Not-Taking Rosuvastatin Calcium Active Levothroid 0.125mg N ot-Taking Insulin Aspart Activ e Celecoxib Active Crestor 20mg Not-Gama ing Combivent 14.7gm Not -Taking Gabapentin Active traMADol HCl 50mg Ac tive Travatan 2.5ml Not-T aking Triamcinolone (oint)-Silicone Active Iron 325mg Not-Takin g Farxiga 5 MG 1 tablet Orally Once a day 06/29/2025 Active Vitamin C 500mg Acti ve Omeprazole 20mg Acti ve Levothyroxine Sodium Active Lisinopril 40mg 1 daily Acti ve metFORMIN HCl 500mg Active Social History AUDIT-C (Standard) Question Answer Notes Did you have a drink containing alcohol in the p ast year? No Points 0 Interpretation Negative Section Notes: He stopped smoking >17 years ago and uses only occasional alcohol He stopped smoking 10 years ago and uses only occasional alcohol He stopped smoking >10 years ago and uses only occasional alcohol He stopped smoking >17 years ago and uses only occasional alcohol Problems Problem Type SNOMED Code ICD Code Onset Dates Problem Status W/U Status Risk Notes Problem Vitamin B deficiency (01200336) Deficiency of other specified B group vitamins (E53.8) Active confirmed Problem Iron deficiency anemia (01365509) Iron deficiency anemia (D50.9) Active confirmed Problem Abnormal feces (856467768) Heme + stool (R19.5) Active confirmed Problem Vitamin B12 deficiency (non anemic) (05764390) B12 deficiency (E53.8) Active confirmed Problem Vitamin B12 deficiency (non anemic) (66128485) Vitamin B 12 deficiency (E53.8) Active confirmed Problem Gastroesophageal reflux disease (668899178) GERD (gastroesophag eal reflux disease) (K21.9) Active confirmed Vital Signs Temperature 98.6 degrees Fahrenheit 06/29/2025 Blood pressure diastolic 01 mm Hg 06/29/2025 Height 70.5 in 06/29/2025 Blood pressure systolic 001 mm Hg 06/29/2025 Weight 241.4 lbs 06/29/2025 BMI 34.14 kg/m2 06/29/2025 Procedures Procedure Date Ordered Date Performed Result Body Sit e UPPER GI ENDOSCOPY 06/29/2025 N/A COLONOSCOPY 06/29/2025 N/A Encounters Encounter Location Date Provider Diagnosis [facility] [address] [place] [phone] 06/29/2025 Hamlet Brothers Iron deficiency anemia D50.9 ; Vitamin B 12 deficiency E53.8 and GERD (gastroesophageal reflux disease) K21.9 [facility] [address] [place] [address] [place] [id number] 06/29/2025 Hamlet Brothers Assessments Encounter Date Diagnosis (ICD Code) Assessment Notes Treatment Notes Treatment Clinical Notes Section Notes 06/29/2025 Iron deficiency anemia (ICD-10 - D50.9) Overall, Harvey appears well, albeit somewhat pale. He is not having any new or worrisome GI complaints. However, given his iron deficiency anemia I did recommend he undergo both upper endoscopy and colonoscopy for further evaluation to rule out any problems such as polyps, angiodysplasias, silent ulcer disease or gastritis, silent esophagitis despite the PPI, or GI neoplasm. I would also plan to obtain further duodenal biopsies to again inspect for celiac disease and malabsorption. We did review the rationale for these procedures including the prevention and/or early detection of GI neoplasms. Full consent has been obtained from him for both procedures, including risks of bleeding and perforation. The procedures will be done with monitored anesthesia care. He has been given the below instructions regarding adjustment of his medications for the procedure. I shall check a follow-up CBC on him to be sure things have not dropped much further than a month ago and we will also check a B12 level to be sure he does not need to start up on B12 shots again. I have recommended that he start some iron and we will send over a prescription for that. He was advised to stop the iron a week before the procedures, along with the instructions for his other medications as below. Harvey was comfortable with this plan. Thank you again for allowing me to participate in Harvey's care. I shall continue to keep you advised of his progress. 06/29/2025 Vitamin B 12 deficiency (ICD-10 - E53.8) Overall, Harvey appears well, albeit somewhat pale. He is not having any new or worrisome GI complaints. However, given his iron deficiency anemia I did recommend he undergo both upper endoscopy and colonoscopy for further evaluation to rule out any problems such as polyps, angiodysplasias, silent ulcer disease or gastritis, silent esophagitis despite the PPI, or GI neoplasm. I would also plan to obtain further duodenal biopsies to again inspect for celiac disease and malabsorption. We did review the rationale for these procedures including the prevention and/or early detection of GI neoplasms. Full consent has been obtained from him for both procedures, including risks of bleeding and perforation. The procedures will be done with monitored anesthesia care. He has been given the below instructions regarding adjustment of his medications for the procedure. I shall check a follow-up CBC on him to be sure things have not dropped much further than a month ago and we will also check a B12 level to be sure he does not need to start up on B12 shots again. I have recommended that he start some iron and we will send over a prescription for that. He was advised to stop the iron a week before the procedures, along with the instructions for his other medications as below. Harvey was comfortable with this plan. Thank you again for allowing me to participate in Harvey's care. I shall continue to keep you advised of his progress. 06/29/2025 GERD (gastroesophage al reflux disease) (ICD-10 - K21.9) Overall, Harvey appears well, albeit somewhat pale. He is not having any new or worrisome GI complaints. However, given his iron deficiency anemia I did recommend he undergo both upper endoscopy and colonoscopy for further evaluation to rule out any problems such as polyps, angiodysplasias, silent ulcer disease or gastritis, silent esophagitis despite the PPI, or GI neoplasm. I would also plan to obtain further duodenal biopsies to again inspect for celiac disease and malabsorption. We did review the rationale for these procedures including the prevention and/or early detection of GI neoplasms. Full consent has been obtained from him for both procedures, including risks of bleeding and perforation. The procedures will be done with monitored anesthesia care. He has been given the below instructions regarding adjustment of his medications for the procedure. I shall check a follow-up CBC on him to be sure things have not dropped much further than a month ago and we will also check a B12 level to be sure he does not need to start up on B12 shots again. I have recommended that he start some iron and we will send over a prescription for that. He was advised to stop the iron a week before the procedures, along with the instructions for his other medications as below. Harvey was comfortable with this plan. Thank you again for allowing me to participate in Harvey's care. I shall continue to keep you advised of his progress. Plan Of Treatment Pending Test Test Name Order Date UPPER GI ENDOSCOPY 06/29/2025 COLONOSCOPY 06/29/2025 VITAMIN B12 AND FOLATE 08/31/2012 CBC w DIFF 05/08/2021 CBC w DIFF 06/29/2025 Complete Blood Count Auto Diff Vitamin B12 and Folate 06/29/2025 Vitamin B12 05/08/2021 Future Test Test Name Order Date COLONOSCOPY 03/10/2017 Next Appt Details Provider Name:Hamlet Brothers , 08/23/2025 11:20:00 AM, [address] [facility] , [place], [place], [id number], Insurance Providers Payer Name Payer Address Payer Phone Subscriber Number Group Number Insured Name Patient Relationship to Insured Coverage Start Date Coverage End Date MEDICARE OF [place] [address] [place] [address] [phone] [id number] ELDA CORBETT Self - patient is the insured MEDICAID OF [facility] [address] [place] [phone] [id number] ELDA CORBETT Self - patient is the [...] Hypothyroidism Hypertension Hyperlipidemia Asthma Arthritis Diverticulosis Denies [place], stroke, nor kidney disease He had an upper endoscopy an d colonoscopy in May of 2010 for evaluation of his anemia, both of which were negative including normal duodenal biopsies-he also had submitted Hemoccult cards in 2010 that were negative. Sleep apnea- but not using CPAP Negative colonoscopy in 09/2017 Surgical History Surgery Date(Month/Year) Right shoulder replacement Right shoulder for spurs Left shoulder for spurs 2017 Cervical spine disc surgery
== END 2025-06-29 12:45 | disposition home or self-care (01) ==
LOC: HO.LAB 12:44
PROVIDERS: PCP Internal Medicine; Visit Provider Internal Medicine
DX: E53.8 Deficiency of other specified B group vitamins (principal); K21.9 Gastro-esophageal reflux disease without esophagitis; D50.9 Iron deficiency anemia, unspecified
CPT/HCPCS: 36415; 82607; 82746; 85025